=== PATIENT | female | born 1995 | race Caucasian/White ===

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

== ENCOUNTER 2018-03-08 09:01 | Emergency (ER) | payer SELFPAY ==
[~2018-03-08] VITALS: Ht 154.9 cm; Wt 97.5 kg
[~2018-03-08 09:01] MED LIST changes: +AMOX-355 PO; +CIPR-225 PO
--- OUTSIDE RECORDS SUMMARY | 2018-03-08 09:07 | XMS REPORT ---
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 87084463 ALLERGIES No Known Allergies ENCOUNTERS Encounter Location Date Diagnosis [address] [address] Oct, [address] [address] Jul, Missed menses N92.6 and BMI 40.0-44.9, adult Z68.41 [place] [address] [place] [id number] [place] [address]80- [address] Jul, Myalgia M79.1 ; Gastroenteritis K52.9 and BMI 40.0-44.9, adult Z68.41 [place] [address] [place] [id number] [place] [address] 77449- 7153 Jun, Missed period N92.6 ; Family history of leukemia Z80.6 and BMI 40.0-44.9, adult Z68.41 [place] [address] [address]- [address]267 Apr, Attention deficit hyperactivity disorder (ADHD), predominantly inattentive type F90.0 and Mood disorder F39 [place] [address] 38757- 0[address] Apr, 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 and Major depressive disorder, recurrent, moderate F33.1 [place] [address] [place] [id number] [place] [address] 27461- 5613 Dec, [place] [address] [address]- 2247 Dec, Other obesity due to excess calories E66.09 and PCOS ( polycystic ovarian syndrome) E28.2 [place] [address] 77[address]- 6622 17 Dec, 2016 Family history of diabetes mellitus Z83.3 ; Other obesity due to excess calories E66.09 ; Elevated blood pressure reading R03.0 ; Screening for diabetes mellitus Z13.1 ; Irregular menses N92.6 and PCOS ( polycystic ovarian syndrome) E28.2 [place] [address] [address]26- 4826 03 Aug, 2016 Pelvic pain R10.2 and Acute cystitis with hematuria N30.01 [place] [address] [place] [id number] [place] [address] 23537- 8547 10 Feb, 2016 Gastroenteritis K52.9 [facility] [address] [address] Jan, [facility] [place] [id number] [place] [address]64 -[address]406 Jan, Diarrhea, unspecified type R19.7 ; Gastroesophageal reflux disease with esophagitis K21.0 ; Major depressive disorder, recurrent, moderate F33.1 ; 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 and Absence of menstruation N91.2 [place] [address] [place] [id number] [place] [address] 85491- 0329 Dec, Major depressive disorder, recurrent, moderate F33.1 [place] [address] [place] [id number] [place] [address] 34321- 2042 Nov, Major depressive disorder, recurrent, moderate F33.1 and 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 [facility] [id number] [place] [address] 00689 -9110 Nov, Pharyngitis, unspecified etiology J02.9 and Tonsillitis J03.90 [facility] [address] [id number] [place] [address] 60341- 3677 Oct, Tendonitis M77.9 [facility] [id number] [place] [address] 49202- 7742 September, Rash R21 [facility] [id number] [place] [address] 41047- 3815 Mar, Cervical lymphadenopathy R59.0 [facility] [address] [address]15- 3205 Feb, Immunization due Z23 [facility] [address] [id number] [place] [address] 71714- 6625 Dec, Head lice 132.0 [facility] [address] [id number] [place] [address] 24214- 2463 Aug, [facility] [id number] [place] [address] 19052- 1491 Aug, [facility] [id number] [place] [address] 38686- 7187 Jul, [facility] [id number] [place] [address] 31557- 9313 Jul, [facility] [address] [id number] [place] [address] 04080- 4973 Jul, [facility] [address] [id number] [place] [address] 20389- 4009 Jul, [facility] [address] [place] [address] [id number] Jun, [facility] [id number] [place] [address] 41935- 0361 Jun, [facility] [address] [place] [address]- 6742 Jun, [facility] [address] [id number] [place] [address]- 4673 May, [facility] [place] [facility] [address] [id number] [place] [address]- 0884 May, [facility] [place] [facility] [address] [id number] [place] [address]- 6098 May, [facility] [place] [facility] [address] [id number] [place] [address]- 8037 May, [facility] [place] [facility] [address] [id number] [place] [address]- 7709 May, [facility] [place] [facility] [address] [id number] [place] [address]- 2066 May, [facility] [place] [facility] [address] [id number] [place] [address]- 9713 May, [facility] [place] [facility] [address] [id number] [place] [address]- 4581 May, [facility] [place] [facility] [address] [id number] [place] [address]- 9623 May, [facility] [place] [facility] [address] [id number] [place] [address]- 3260 May, [facility] [place] [facility] [address] [id number] [place] [address]- 3087 Apr, [facility] [place] [facility] [address] [id number] [place] [address]- 3407 Apr, [facility] [place] [facility] [address] [id number] [place] [address]- 5812 Mar, [facility] [place] [facility] [address] [id number] [place] [address]- 6775 Mar, [facility] [place] [facility] [address] [id number] [place] [address]- 8219 Mar, [facility] [place] [facility] [address] [id number] [place] [address]- 3258 Mar, [facility] [place] [facility] [address] [id number] [place] [address]- 1517 Feb, [facility] [place] [facility] [address] [id number] [place] [address]- 1318 Feb, [facility] [place] [facility] [address] [id number] [place] [address] Jan, [facility] [place] [facility] [address] [id number] [place] [address]- 3595 Jan, [facility] [place] [facility] [address] [id number] [place] [address]- 0750 Dec, [facility] [place] [facility] [address] [id number] [place] [address]- 9662 Dec, [facility] [place] [facility] [address] [id number] [place] [address]- 7739 Dec, [facility] [place] [facility] [address] [id number] [place] [address]- 9647 Dec, [facility] [place] [facility] [address] [id number] [place] [address]- 6938 Mar, [facility] [place] [facility] [address] [id number] [place] [address]- 6415 Mar, [facility] [place] [facility] [address] [id number] [place] [address]- 8597 Mar, [facility] [place] [facility] [address] [id number] [place] [address]- 5764 Mar, [facility] [place] [facility] [address] [id number] [place] [address]- 0988 Jan, [facility] [place] [facility] [address] [id number] [place] [address]- 1323 Jan, [facility] [place] [facility] [address] [id number], [place] [address]- 6927 Jan, [facility] [address] [id number] [place] [address]- 9974 Jan, [facility] [address] [id number], [place] [address]- 2996 Dec, [facility] [address] [facility] [id number] [place] [address]- 0966 Oct, [facility] [address] [id number], [place] [address]- 1564 September, [facility] [address] [id number] [place] [address]- 6272 Aug, [facility] [address] [id number] [place] [address]- 1580 Jul, [facility] [address] [place] [address]- 0431 Jun, [facility] [address] [id number] [place] [address]- 2854 Jun, [facility] [address] [place] [id number] [place] [address]- 2184 Jun, [facility] [address] [facility] [id number] [place] [address]- 7716 Jun, [facility] [address] [facility] [id number] [place] [address]- 2639 Jun, [facility] [place] [facility] [address] [id number], [place] [address]- 2541 May, [facility] [address] [facility] [id number], [place] [address]- 5236 Apr, [facility] [place] [facility] [address] [id number], [place] [address]- 6892 Apr, [facility] [address] [facility] [id number], [place] [address]- 4125 Apr, [facility] [place] [facility] [address] [id number] [place] [address]- 9882 Apr, [facility] [place] [facility] [address] [id number] [place] [address]- 0861 Feb, [facility] [place] [facility] [address] [id number] [place] [address]- 2376 Jan, [facility] [place] [facility] [address] [id number] [place] [address]- 2980 Dec, [facility] [place] [facility] [address] [id number] [place] [address]- 7731 Dec, [facility] [place] [facility] [address] [id number] [place] [address]- 8616 Dec, [facility] [place] [facility] [address] [id number] [place] [address]- 2640 Nov, [facility] [place] [facility] [address] [id number] [place] [address]- 0798 Nov, [facility] [place] [facility] [address] [id number] [place] [address]- 5732 Oct, [facility] [place] [facility] [address] [id number] [place] [address]- 6524 Aug, [facility] [place] [facility] [address] [id number] [place] [address]- 1099 Aug, [facility] [place] [facility] [address] [id number] [place] [address]- 9586 Jun, [facility] [place] [facility] [address] [id number] [place] [address]- 1014 May, [facility] [place] [facility] [address] [id number] [place] [address]- 7564 May, [facility] [place] [facility] [address] [id number] [place] [address]- 4902 Apr, [facility] [place] [facility] [address] [id number] [place] [address]- 7566 Apr, [facility] [address] [facility] [id number] [place] [address]- 9420 Jul, IMMUNIZATIONS No Known Immunizations SOCIAL HISTORY Never Assessed REASON FOR VISIT period concerns- lmp was 05/27, came in and has had a negative test, states she is on day 66 of cycle and has concerns about fertility-AHarrymanRAllie PLAN OF CARE Activity Details Follow Up 3 Months, prn Reason: control VITAL SIGNS Height 61 in 2017-07-31 Weight 213.5 lbs 2017-07-31 Temperature 100.2 degrees Fahrenheit 2017-07-31 Heart Rate 90 bpm 2017-07-31 Respiratory Rate 18 2017-07-31 BMI 40.34 kg/m2 2017-07-31 Blood pressure systolic 112 mmHg 2017-07-31 Blood pressure diastolic 68 mmHg 2017-07-31 MEDICATIONS Medication Instructions Dosage Frequency Start Date End Date Duration Status Ortho Tri-Cyclen (28) 0.18/0.215/0.25 MG-35 MCG Orally Once a day 1 tablet 24h Jul, 28 day(s) Active RESULTS Name Result Date Reference Range TEST, URINE (IN HOUSE) 2017-07-31 RESULTS negative Lot # [id number] Control + Exp date 11/2018 PROCEDURES No Known procedures INSTRUCTIONS MEDICATIONS ADMINISTERED No Known Medications MEDICAL (GENERAL) HISTORY Type Description Date Medical History depression Medical History ADHD Surgical History Umbilical hernia repair Surgical History Ear surgery Hospitalization History surgeries Hospitalization History childbirth
--- OUTSIDE RECORDS SUMMARY | 2018-03-08 09:07 | XMS REPORT ---
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 60103755 ALLERGIES No Information ENCOUNTERS Encounter Location Date Diagnosis [address] [address] Oct, [address] [address]- [address]676 Jul, Missed menses N92.6 and BMI 40.0-44.9, adult Z68.[address] [address]- 5068 Jul, Myalgia M79.1 ; Gastroenteritis K52.9 and BMI 40.0-44.9, adult Z68.[address] [address]65- 0073 Jun, Missed period N92.6 ; Family history of leukemia Z80.6 and BMI 40.0-44.9, adult Z68.[address] [address]- 6168 Apr, Attention deficit hyperactivity disorder (ADHD), predominantly inattentive type F90.0 and Mood disorder F39 [address] [address]- 2664 Apr, 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 and Major depressive disorder, recurrent, moderate F33.1 [place] [address] [place] [id number] [place] [address] 66891- 9053 Dec, [place] [address] [address]- 7775 Dec, Other obesity due to excess calories E66.09 and PCOS ( polycystic ovarian syndrome) E28.2 [place] [address] 18203- 9292 17 Dec, 2016 Family history of diabetes mellitus Z83.3 ; Other obesity due to excess calories E66.09 ; Elevated blood pressure reading R03.0 ; Screening for diabetes mellitus Z13.1 ; Irregular menses N92.6 and PCOS ( polycystic ovarian syndrome) E28.2 [place] [address] [address]- 1119 03 Aug, 2016 Pelvic pain R10.2 and Acute cystitis with hematuria N30.01 [place] [address] [place] [id number] [place] [address] 8[address]10- 3952 Feb, Gastroenteritis K52.9 [facility] [address] [address] Jan, [facility] [place] [id number] [place] [address] 16240 -7798 Jan, Diarrhea, unspecified type R19.7 ; Gastroesophageal reflux disease with esophagitis K21.0 ; Major depressive disorder, recurrent, moderate F33.1 ; 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 and Absence of menstruation N91.2 [place] [address] [place] [id number] [place] [address] 96931- 1805 Dec, Major depressive disorder, recurrent, moderate F33.1 [place] [address] [place] [id number] [place] [address] 05995- 7676 Nov, Major depressive disorder, recurrent, moderate F33.1 and 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 [facility] [address] [place] [address] 61647 -0041 Nov, Pharyngitis, unspecified etiology J02.9 and Tonsillitis J03.90 [facility] [address] [place] [id number] [place] [address] 40578- 2567 Oct, Tendonitis M77.9 [facility] [address] [place] [address] [id number] [place] [address] 49057- 5336 September, Rash R21 [facility] [address] [place] [id number] [place] [address] 05966- 7648 Mar, Cervical lymphadenopathy R59.0 [facility] [address] 72878- 2297 Feb, Immunization due Z23 [facility] [address] [place] [id number] [place] [address] 26910- 8399 Dec, Head lice 132.0 [facility] [address] [place] [address] [id number] [place] [address] 10893- 3441 Aug, [facility] [address] [id number] [place] [address] 89367- 2744 Aug, [facility] [address] [id number] [place] [address] 42538- 5252 Jul, [facility] [id number] [place] [address] 24413- 3427 Jul, [facility] [address] [place] [address] 27593- 6859 Jul, [facility] [id number] [place] [address] 65859- 9754 Jul, [facility] [address] [place] [address] [id number] Jun, [facility] [id number] [place] [address] 499807- 6316 Jun, [facility] [address] [place] [id number] [place] [address] [place] [address]- 8714 Jun, [facility] [address] [id number] [place] [address]- 9952 May, [facility] [place] [facility] [address] [id number] [place] [address]- 6158 May, [facility] [place] [facility] [address] [id number] [place] [address]- 7336 May, [facility] [place] [facility] [address] [id number] [place] [address]- 0735 May, [facility] [place] [facility] [address] [id number] [place] [address]- 6036 May, [facility] [place] [facility] [address] [id number] [place] [address]- 6105 May, [facility] [place] [facility] [address] [id number] [place] [address]- 3540 May, [facility] [place] [facility] [address] [id number] [place] [address]- 0481 May, [facility] [place] [facility] [address] [id number] [place] [address]- 2596 May, [facility] [place] [facility] [address] [id number] [place] [address]- 7245 May, [facility] [place] [facility] [address] [id number] [place] [address]- 1663 Apr, [facility] [place] [facility] [address] [id number] [place] [address]- 2601 Apr, [facility] [place] [facility] [address] [id number] [place] [address]- 2865 Mar, [facility] [place] [facility] [address] [id number] [place] [address]- 3430 Mar, [facility] [place] [facility] [address] [id number] [place] [address]- 6756 Mar, [facility] [place] [facility] [address] [id number] [place] [address]- 8058 Mar, [facility] [place] [facility] [address] [id number] [place] [address]- 1647 Feb, [facility] [place] [facility] [address] [id number] [place] [address]- 0724 Feb, [facility] [place] [facility] [address] [id number] [place] [address]- 5042 Jan, [facility] [place] [facility] [address] [id number] [place] [address]- 1117 Jan, [facility] [place] [facility] [address] [id number] [place] [address]- 1526 Dec, [facility] [place] [facility] [address] [id number] [place] [address]- 4993 Dec, [facility] [place] [facility] [address] [id number] [place] [address]- 8327 Dec, [facility] [place] [facility] [address] [id number] [place] [address]- 8007 Dec, [facility] [place] [facility] [address] [id number] [place] [address]- 5088 Mar, [facility] [place] [facility] [address] [id number] [place] [address]- 4618 Mar, [facility] [place] [facility] [address] [id number] [place] [address]- 1717 Mar, [facility] [place] [facility] [address] [id number] [place] [address]- 6254 Mar, [facility] [place] [facility] [address] [id number] [place] [address]- 2856 Jan, [facility] [place] [facility] [address] [id number] [place] [address]- 3164 Jan, [facility] [place] [facility] [address] [id number] [place] [address]- 3153 Jan, [facility] [address] [id number] [place] [address]- 7457 Jan, [facility] [address] [id number] [place] [address]- 3326 Dec, [facility] [address] [facility] [id number] [place] [address]- 5185 Oct, [facility] [place] [facility] [address] [id number] [place] [address]- 4253 September, [facility] [address] [id number] [place] [address]- 3964 Aug, [facility] [address] [id number] [place] [address]- 7239 Jul, [facility] [address] [id number] [place] [address]- 7906 Jun, [facility] [place] [facility] [address] [id number] [place] [address]- 1520 Jun, [facility] [address] [id number] [place] [address]- 4891 Jun, [facility] [address] [facility] [id number] [place] [address]- 2361 Jun, [facility] [address] [id number] [place] [address]- 6263 Jun, [facility] [place] [facility] [address] [id number] [place] [address] 2549 May, [facility] [place] [facility] [address] [id number] [place] [address]- 9256 Apr, [facility] [place] [facility] [address] [id number] [place] [address]- 4087 Apr, [facility] [place] [facility] [address] [facility] [id number] [place] [address] Apr, [facility] [place] [facility] [address] [id number] [place] [address] Apr, [facility] [place] [facility] [address] [id number] [place] [address] Feb, [facility] [place] [facility] [address] [id number] [place] [address] Jan, [facility] [place] [facility] [address] [id number] [place] [address] Dec, [facility] [place] [facility] [address] [id number] [place] [address] Dec, [facility] [place] [facility] [address] [id number] [place] [address] Dec, [facility] [place] [facility] [address] [id number] [place] [address] Nov, [facility] [place] [facility] [address] [id number] [place] [address] Nov, [facility] [place] [facility] [address] [id number] [place] [address] Oct, [facility] [place] [facility] [address] [id number] [place] [address] Aug, [facility] [place] [facility] [address] [id number] [place] [address] Aug, [facility] [place] [facility] [address] [id number] [place] [address] Jun, [facility] [place] [facility] [address] [id number] [place] [address] May, [facility] [place] [facility] [address] [id number] [place] [address] May, [facility] [place] [facility] [address] [id number] [place] [address] Apr, [facility] [place] [facility] [address] [id number] [place] [address] Apr, [facility] [address] [facility] [id number] [place] [address] Jul, IMMUNIZATIONS No Known Immunizations SOCIAL HISTORY Never Assessed REASON FOR VISIT dog bite PLAN OF CARE VITAL SIGNS MEDICATIONS Unknown Medications RESULTS No Results PROCEDURES No Known procedures INSTRUCTIONS MEDICATIONS ADMINISTERED No Known Medications MEDICAL (GENERAL) HISTORY Type Description Date Medical History depression Medical History ADHD Surgical History Umbilical hernia repair Surgical History Ear surgery Hospitalization History surgeries Hospitalization History childbirth
--- OUTSIDE RECORDS SUMMARY | 2018-03-08 09:07 | XMS REPORT ---
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 08949468 ALLERGIES No Known Allergies ENCOUNTERS Encounter Location Date Diagnosis [place] [address] [address] Oct, [place] [address] [address] Jul, Missed menses N92.6 and BMI 40.0-44.9, adult Z68.41 [place] [address] [address] [place] [id number] [place] [address]30- 3448 Jul, Myalgia M79.1 ; Gastroenteritis K52.9 and BMI 40.0-44.9, adult Z68.41 [place] [address] [address]- 28[address] Jun, Missed period N92.6 ; Family history of leukemia Z80.6 and BMI 40.0-44.9, adult Z68.41 [place] [address] 76[address]- 8407 Apr, Attention deficit hyperactivity disorder (ADHD), predominantly inattentive type F90.0 and Mood disorder F39 [place] [address] [address]31- 1711 Apr, 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 and Major depressive disorder, recurrent, moderate F33.1 [place] [address] [place] [id number] [place] [address] 95695- 2837 Dec, [place] [address] 01468- 4153 Dec, Other obesity due to excess calories E66.09 and PCOS ( polycystic ovarian syndrome) E28.2 [place] [address] 90478- 7937 17 Dec, 2016 Family history of diabetes mellitus Z83.3 ; Other obesity due to excess calories E66.09 ; Elevated blood pressure reading R03.0 ; Screening for diabetes mellitus Z13.1 ; Irregular menses N92.6 and PCOS ( polycystic ovarian syndrome) E28.2 [place] [address] 6[address]- 6688 03 Aug, 2016 Pelvic pain R10.2 and Acute cystitis with hematuria N30.01 [place] [address] 84023- 8831 Feb, Gastroenteritis K52.9 [facility] [place] [address] [place] [id number] [place] [address] 24117 -9269 Jan, [facility] [place] [address] [address] [place] [id number] [place] [address] 90227 -3575 Jan, Diarrhea, unspecified type R19.7 ; Gastroesophageal reflux disease with esophagitis K21.0 ; Major depressive disorder, recurrent, moderate F33.1 ; 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 and Absence of menstruation N91.2 [place] [address] 39636- 3635 Dec, Major depressive disorder, recurrent, moderate F33.1 [place] [address] [place] [id number] [place] [address] 44174- 8889 Nov, Major depressive disorder, recurrent, moderate F33.1 and 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 [facility] [id number] [place] [address] 87806 -1224 Nov, Pharyngitis, unspecified etiology J02.9 and Tonsillitis J03.90 [facility] [address] [place] [id number] [place] [address] 96193- 3318 Oct, Tendonitis M77.9 [facility] [address] 74646- 2747 September, Rash R21 [facility] [address] 21309- 5781 Mar, Cervical lymphadenopathy R59.0 [facility] [address] 88188- 7306 Feb, Immunization due Z23 [facility] [address] 26998- 4201 Dec, Head lice 132.0 [facility] [address] [place] [id number] [place] [address] 19528- 5537 Aug, [facility] [address] [place] [id number] [place] [address] 26040- 7062 Aug, [facility] [address] [place] [id number] [place] [address] 86631- 8164 Jul, [facility] [address] [place] [id number] [place] [address] 28986- 3878 Jul, [facility] [address] [place] [id number] [place] [address] 33042- 1028 Jul, [facility] [address] [place] [id number] [place] [address] 37304- 4377 Jul, [facility] [id number] [place] [address] [id number] Jun, [facility] [address] [place] [id number] [place] [address] 07394- 1137 Jun, [facility] [address] [id number] [place] [address]- 2546 Jun, [facility] [place] [facility] [address] [id number] [place] [address]- 9329 May, [facility] [place] [facility] [address] [id number] [place] [address]- 2006 May, [facility] [place] [facility] [address] [id number] [place] [address]- 2226 May, [facility] [place] [facility] [address] [id number] [place] [address]- 3390 May, [facility] [place] [facility] [address] [id number] [place] [address]- 0630 May, [facility] [place] [facility] [address] [id number] [place] [address]- 7600 May, [facility] [place] [facility] [address] [id number] [place] [address]- 8190 May, [facility] [place] [facility] [address] [id number] [place] [address]- 1048 May, [facility] [place] [facility] [address] [id number] [place] [address]- 8913 May, [facility] [place] [facility] [address] [id number] [place] [address]- 2437 May, [facility] [place] [facility] [address] [id number] [place] [address]- 4486 Apr, [facility] [place] [facility] [address] [id number] [place] [address]- 2786 Apr, [facility] [place] [facility] [address] [id number] [place] [address]- 0796 Mar, [facility] [place] [facility] [address] [id number] [place] [address]- 1916 Mar, [facility] [place] [facility] [address] [id number] [place] [address]- 4103 Mar, [facility] [place] [facility] [address] [id number] [place] [address]87 Mar, [facility] [place] [facility] [address] [id number] [place] [address]- 8805 Feb, [facility] [place] [facility] [address] [id number] [place] [address]- 4591 Feb, [facility] [place] [facility] [address] [id number] [place] [address]- 7035 Jan, [facility] [place] [facility] [address] [id number] [place] [address]- 9808 Jan, [facility] [place] [facility] [address] [id number] [place] [address]- 1219 Dec, [facility] [place] [facility] [address] [id number] [place] [address]- 5097 Dec, [facility] [place] [facility] [address] [id number] [place] [address]- 1332 Dec, [facility] [place] [facility] [address] [id number] [place] [address]- 6836 Dec, [facility] [place] [facility] [address] [id number] [place] [address]- 7321 Mar, [facility] [place] [facility] [address] [id number] [address]- 8143 Mar, [facility] [place] [facility] [address] [id number], [place] [address]- 5964 Mar, [facility] [place] [facility] [address] [id number] [place] [address]- 9509 Mar, [facility] [place] [facility] [address] [id number], [place] [address]- 2542 Jan, [facility] [place] [facility] [address] [id number] [place] [address]- 5065 Jan, [facility] [place] [facility] [address] [id number] [place] [address]- 3783 Jan, [facility] [address] [id number] [place] [address]- 1677 Jan, [facility] [address] [id number] [place] [address] 2546 Dec, [facility] [address] [id number] [place] [address]- 3128 Oct, [facility] [address] [id number] [place] [address] 2546 September, [facility] [address] [id number] [place] [address]- 8585 Aug, [facility] [address] [id number] [place] [address]- 2546 Jul, [facility] [address] [address] 1987 Jun, [facility] [address] [id number] [place] [address]- 5905 Jun, [facility] [address] [place] [address]- 7447 Jun, [facility] [address] [facility] [id number] [place] [address]- 7357 Jun, [facility] [address] [facility] [id number] [place] [address]- 2547 Jun, [facility] [address] [id number], [place] [address]- 2540 May, [facility] [place] [facility] [address] [id number] [place] [address]- 2546 Apr, [facility] [place] [facility] [address] [id number] [place] [address]- 2546 Apr, [facility] [address] [facility] [id number] [place] [address]- 2546 Apr, [facility] [place] [facility] [address] [id number] [place] [address]- 0539 Apr, [facility] [place] [facility] [address] [id number] [place] [address]- 3946 Feb, [facility] [place] [facility] [address] [id number] [place] [address]- 2926 Jan, [facility] [place] [facility] [address] [id number] [place] [address]- 0296 Dec, [facility] [place] [facility] [address] [id number] [place] [address]- 7424 Dec, [facility] [place] [facility] [address] [id number] [place] [address]- 0726 Dec, [facility] [place] [facility] [address] [id number] [place] [address]- 8325 Nov, [facility] [place] [facility] [address] [id number] [place] [address]- 0402 Nov, [facility] [place] [facility] [address] [id number] [place] [address]- 1280 Oct, [facility] [place] [facility] [address] [id number] [place] [address]- 3596 Aug, [facility] [place] [facility] [address] [id number] [place] [address]- 9956 Aug, [facility] [place] [facility] [address] [id number] [place] [address]- 9096 Jun, [facility] [place] [facility] [address] [id number] [place] [address]- 4616 May, [facility] [place] [facility] [address] [id number] [place] [address]- 0916 May, [facility] [place] [facility] [address] [id number] [place] [address]- 8106 Apr, [facility] [place] [facility] [address] [facility] [id number] [place] [address]- 8445 Apr, [facility] [address] [facility] [id number] [place] [address]- 5900 Jul, IMMUNIZATIONS Vaccine Route Administration Date Status TORADOL (IM) 60 MG/2ML (UP TO 15 MG) IM Intramuscular July 29, 2017 Administered SOCIAL HISTORY Never Assessed REASON FOR VISIT Vomiting, diahrria, body aches -[place] [facility] [employer]U[facility] PLAN OF CARE Activity Details Follow Up prn Reason: VITAL SIGNS Height 61 in 2017-07-29 Weight 214.7 lbs 2017-07-29 Temperature 98.4 degrees Fahrenheit 2017-07-29 Heart Rate 88 bpm 2017-07-29 Respiratory Rate 18 2017-07-29 BMI 40.56 kg/m2 2017-07-29 Blood pressure systolic 122 mmHg 2017-07-29 Blood pressure diastolic 70 mmHg 2017-07-29 MEDICATIONS Unknown Medications RESULTS No Results PROCEDURES Procedure Date Ordered Result Body Site TORADOL (IM) 60 MG/2ML (UP TO 15 MG) July 29, 2017 THER/PROPH/DIAG INJ, SC/IM July 29, 2017 INSTRUCTIONS MEDICATIONS ADMINISTERED No Known Medications MEDICAL (GENERAL) HISTORY Type Description Date Medical History depression Medical History ADHD Surgical History Umbilical hernia repair Surgical History Ear surgery Hospitalization History surgeries Hospitalization History childbirth
--- OUTSIDE RECORDS SUMMARY | 2018-03-08 09:08 | XMS REPORT ---
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 85939431 ALLERGIES No Known Allergies ENCOUNTERS Encounter Location Date Diagnosis [address] [address]47 Oct, [address] [address]- [address]131 Jul, Missed menses N92.6 and BMI 40.0-44.9, adult Z68.[address] [address]- 9892 Jul, Myalgia M79.1 ; Gastroenteritis K52.9 and BMI 40.0-44.9, adult Z68.[address] [address]- 2864 27 Jun, 2017 Missed period N92.6 ; Family history of leukemia Z80.6 and BMI 40.0-44.9, adult Z68.[address] [address]- 2903 Apr, Attention deficit hyperactivity disorder (ADHD), predominantly inattentive type F90.0 and Mood disorder F39 [address] [address]- 0690 Apr, 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 and Major depressive disorder, recurrent, moderate F33.1 [place] [address] [place] [id number] [place] [address] 40185- 9826 Dec, [place] [address] [place] [id number] [place] [address] 29894- 0308 Dec, Other obesity due to excess calories E66.09 and PCOS ( polycystic ovarian syndrome) E28.2 [place] [address] [address]- 6588 17 Dec, 2016 Family history of diabetes mellitus Z83.3 ; Other obesity due to excess calories E66.09 ; Elevated blood pressure reading R03.0 ; Screening for diabetes mellitus Z13.1 ; Irregular menses N92.6 and PCOS ( polycystic ovarian syndrome) E28.2 [place] [address] [address]- 6139 03 Aug, 2016 Pelvic pain R10.2 and Acute cystitis with hematuria N30.01 [place] [address] [place] [id number] [place] [address] 40786- 9759 Feb, Gastroenteritis K52.9 [facility] [address] [address] Jan, [facility] [place] [id number] [place] [address] 55021 -5243 Jan, Diarrhea, unspecified type R19.7 ; Gastroesophageal reflux disease with esophagitis K21.0 ; Major depressive disorder, recurrent, moderate F33.1 ; 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 and Absence of menstruation N91.2 [place] [address] [place] [id number] [place] [address] 66927- 2794 Dec, Major depressive disorder, recurrent, moderate F33.1 [place] [address] [place] [id number] [place] [address] 65449- 9814 Nov, Major depressive disorder, recurrent, moderate F33.1 and 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 [facility] [place] [id number] [place] [address] 34517 -0522 Nov, Pharyngitis, unspecified etiology J02.9 and Tonsillitis J03.90 [facility] [address] [place] [id number] [place] [address] 61700- 6951 Oct, Tendonitis M77.9 [facility] [address] [place] [id number] [place] [address] 21313- 5148 September, Rash R21 [facility] [address] [place] [id number] [place] [address] 57915- 1831 Mar, Cervical lymphadenopathy R59.0 [facility] [address] 03404- 6067 Feb, Immunization due Z23 [facility] [address] [place] [id number] [place] [address] 60930- 8855 Dec, Head lice 132.0 [facility] [address] [place] [id number] [place] [address] 45010- 9294 Aug, [facility] [address] [place] [id number] [place] [address] 22568- 5513 Aug, [facility] [address] [place] [id number] [place] [address] 81004- 5046 Jul, [facility] [address] [place] [address] 80728- 3438 Jul, [facility] [address] [place] [address] 89246- 2729 Jul, [facility] [address] [place] [address] 92211- 4629 Jul, [facility] [address] [place] [address] [id number] Jun, [facility] [address] [place] [address] 918844- 1339 Jun, [facility] [address] [place] [id number] [place] [address], [place] [address]- 6078 Jun, [facility] [place] [facility] [address] [id number] [place] [address]- 8502 May, [facility] [place] [facility] [address] [id number] [place] [address]- 0742 May, [facility] [place] [facility] [address] [id number] [place] [address]- 6559 May, [facility] [place] [facility] [address] [id number] [place] [address]- 0309 May, [facility] [place] [facility] [address] [id number] [place] [address]- 1165 May, [facility] [place] [facility] [address] [id number] [place] [address]- 2057 May, [facility] [place] [facility] [address] [id number] [place] [address]- 4873 May, [facility] [place] [facility] [address] [id number] [place] [address]- 1547 May, [facility] [place] [facility] [address] [id number] [place] [address]- 5749 May, [facility] [place] [facility] [address] [id number] [place] [address]- 7023 May, [facility] [place] [facility] [address] [id number] [place] [address]- 3605 Apr, [facility] [place] [facility] [address] [id number] [place] [address]- 5923 Apr, [facility] [place] [facility] [address] [id number] [place] [address]- 3636 Mar, [facility] [place] [facility] [address] [id number] [place] [address]- 5682 Mar, [facility] [place] [facility] [address] [id number] [place] [address]- 5346 Mar, [facility] [place] [facility] [address] [id number] [place] [address]- 8224 Mar, [facility] [place] [facility] [address] [id number] [place] [address]- 4963 Feb, [facility] [place] [facility] [address] [id number] [place] [address]- 0052 Feb, [facility] [place] [facility] [address] [id number] [place] [address]- 5749 Jan, [facility] [place] [facility] [address] [id number] [place] [address]- 0276 Jan, [facility] [place] [facility] [address] [id number] [place] [address]- 2400 Dec, [facility] [place] [facility] [address] [id number] [place] [address]- 0716 Dec, [facility] [place] [facility] [address] [id number] [place] [address]- 0301 Dec, [facility] [place] [facility] [address] [id number] [place] [address]- 2967 Dec, [facility] [place] [facility] [address] [id number] [place] [address]- 7572 Mar, [facility] [place] [facility] [address] [id number] [place] [address]- 4915 Mar, [facility] [place] [facility] [address] [id number] [place] [address]- 5120 Mar, [facility] [place] [facility] [address] [id number] [place] [address]- 4357 Mar, [facility] [place] [facility] [address] [id number] [place] [address]- 6844 Jan, [facility] [place] [facility] [address] [id number] [place] [address]- 9636 Jan, [facility] [place] [facility] [address] [id number], [place] [address]- 3646 Jan, [facility] [address] [id number] [place] [address]- 0697 Jan, [facility] [address] [id number] [place] [address]- 8896 Dec, [facility] [address] [facility] [id number] [place] [address]- 2629 Oct, [facility] [address] [id number], [place] [address]- 5954 September, [facility] [address] [id number] [place] [address]- 0351 Aug, [facility] [address] [facility] [id number] [place] [address]- 4047 Jul, [facility] [address] [facility] [id number] [place] [address]- 4628 Jun, [facility] [address] [id number], [place] [address]- 6421 Jun, [facility] [address] [id number], [place] [address]- 1141 Jun, [facility] [address] [facility] [id number] [place] [address]- 8419 Jun, [facility] [address] [facility] [id number], [place] [address] Jun, [facility] [place] [facility] [address] [id number], [place] [address] May, [facility] [address] [id number], [place] [address] Apr, [facility] [place] [facility] [address] [id number], [place] [address] Apr, [facility] [address] [facility] [id number], [place] [address] Apr, [facility] [place] [facility] [address] [id number] [place] [address] Apr, [facility] [place] [facility] [address] [id number] [place] [address] Feb, [facility] [place] [facility] [address] [id number] [place] [address] Jan, [facility] [place] [facility] [address] [id number] [place] [address] Dec, [facility] [place] [facility] [address] [id number] [place] [address] Dec, [facility] [place] [facility] [address] [id number] [place] [address] Dec, [facility] [place] [facility] [address] [id number] [place] [address] Nov, [facility] [place] [facility] [address] [id number] [place] [address] Nov, [facility] [place] [facility] [address] [id number] [place] [address] Oct, [facility] [place] [facility] [address] [id number] [place] [address] Aug, [facility] [place] [facility] [address] [id number] [place] [address] Aug, [facility] [place] [facility] [address] [id number] [place] [address] Jun, [facility] [place] [facility] [address] [id number] [place] [address] May, [facility] [place] [facility] [address] [id number] [place] [address] May, [facility] [place] [facility] [address] [id number] [place] [address] Apr, [facility] [place] [facility] [address] [id number] [place] [address] Apr, [facility] [address] [facility] [id number] [place] [address] Jul, IMMUNIZATIONS No Known Immunizations SOCIAL HISTORY Never Assessed REASON FOR VISIT Establish Care/ pt requesting labs- Torrie Alvarez RN, PHQ2, AUDIT C PLAN OF CARE Activity Details Follow Up prn Reason: VITAL SIGNS Height 61 in 2017-07-09 Weight 213 lbs 2017-07-09 Temperature 98.0 degrees Fahrenheit 2017-07-09 Heart Rate 80 bpm 2017-07-09 Respiratory Rate 18 2017-07-09 BMI 40.24 kg/m2 2017-07-09 Blood pressure systolic 112 mmHg 2017-07-09 Blood pressure diastolic 74 mmHg 2017-07-09 MEDICATIONS Unknown Medications RESULTS No Results PROCEDURES Procedure Date Ordered Result Body Site URINE TEST Jul 09, 2017 COMPLETE CBC W/AUTO DIFF WBC Jul 09, 2017 INSTRUCTIONS MEDICATIONS ADMINISTERED No Known Medications MEDICAL (GENERAL) HISTORY Type Description Date Medical History depression Medical History ADHD Surgical History Umbilical hernia repair Surgical History Ear surgery Hospitalization History surgeries Hospitalization History childbirth
--- OUTSIDE RECORDS SUMMARY | 2018-03-08 09:12 | XMS REPORT | Continuity of Care Document ---
Author Author Count Includes [facility] Address Unknown Phone Unavailable Allergies Active Description Code Type Severity Reaction Onset Reported/Identified Relationship to Patient Clinical Status Yes No Known Drug Allergies [id number] Drug Allergy Unknown N/A 11/29/2011 Medications There is no data. Problems Date Dx Coded Attending Type Code Diagnosis Diagnosed By 08/02/2009 CHIQUITA BILL APRN 034.0 PHARYNGITIS STREPTOCOCCUS, GROUP A: BETA HEMOLYTIC 08/02/2009 CHIQUITA BILL APRN 034.0 PHARYNGITIS STREPTOCOCCUS, GROUP A: BETA HEMOLYTIC 08/02/2009 INDIA SHAY DO K 034.0 PHARYNGITIS STREPTOCOCCUS, GROUP A: BETA HEMOLYTIC 08/02/2009 INDIA SHAY DO K 034.0 PHARYNGITIS STREPTOCOCCUS, GROUP A: BETA HEMOLYTIC 08/02/2009 034.0 PHARYNGITIS STREPTOCOCCUS, GROUP A: BETA HEMOLYTIC 08/02/2009 PATRICE DIAS MD 034.0 PHARYNGITIS STREPTOCOCCUS, GROUP A: BETA HEMOLYTIC 08/02/2009 MOLLY SHAY DOA K 034.0 PHARYNGITIS STREPTOCOCCUS, GROUP A: BETA HEMOLYTIC 08/02/2009 TYREEE APRON CLEANER, UTE A 034.0 PHARYNGITIS STREPTOCOCCUS, GROUP A: BETA HEMOLYTIC 08/02/2009 KENOTTE APRON CLEANER, UTE A 034.0 PHARYNGITIS STREPTOCOCCUS, GROUP A: BETA HEMOLYTIC 08/02/2009 RAJOTTE APRON CLEANER, UTE A 034.0 PHARYNGITIS STREPTOCOCCUS, GROUP A: BETA HEMOLYTIC 08/02/2009 MARISEL MARTINES APRNIA R 034.0 PHARYNGITIS STREPTOCOCCUS, GROUP A: BETA HEMOLYTIC 08/02/2009 RAJOTTE APRON CLEANER, UTE A 034.0 PHARYNGITIS STREPTOCOCCUS, GROUP A: BETA HEMOLYTIC 08/02/2009 RAJOTTE APRON CLEANER, UTE A 034.0 PHARYNGITIS STREPTOCOCCUS, GROUP A: BETA HEMOLYTIC 08/02/2009 CONRAD RODRIGUEZ FREYA R 034.0 PHARYNGITIS STREPTOCOCCUS, GROUP A: BETA HEMOLYTIC 08/02/2009 JASPAL DO, INDIA K 034.0 PHARYNGITIS STREPTOCOCCUS, GROUP A: BETA HEMOLYTIC 08/02/2009 DIANA UPN, UTE A 034.0 PHARYNGITIS STREPTOCOCCUS, GROUP A: BETA HEMOLYTIC 07/20/2010 LANDY RODRIGUEZ, CHIQUITA SARAH V06.5 DT, TETANUS-DIPHTHERIA [Td] ,TDAP 07/20/2010 BILL JENNIFER, CHIQUITA SARAH V06.5 DT, TETANUS-DIPHTHERIA [Td] ,TDAP 07/20/2010 SHAY DOINDIA V06.5 DT, TETANUS-DIPHTHERIA [Td] ,TDAP 07/20/2010 SHAY DO, IND[place] K V06.5 DT, TETANUS-DIPHTHERIA [Td] ,TDAP 07/20/2010 V06.5 DT, TETANUS- DIPHTHERIA [Td] ,TDAP 07/20/2010 PATRICE DIAS MD V06.5 DT, TETANUS-DIPHTHERIA [Td] ,TDAP 07/20/2010 MOLLY SHAY DOA K V06.5 DT, TETANUS-DIPHTHERIA [Td] ,TDAP 07/20/2010 DIANA RODRIGUEZ, UTE A V06.5 DT, TETANUS-DIPHTHERIA [Td] ,TDAP 07/20/2010 KENOTTE APRON CLEANER, UTE A V06.5 DT, TETANUS-DIPHTHERIA [Td] ,TDAP 07/20/2010 RAJOTTE APRON CLEANER, UTE A V06.5 DT, TETANUS-DIPHTHERIA [Td] ,TDAP 07/20/2010 CONRAD RODRIGUEZ, FREYA R V06.5 DT, TETANUS-DIPHTHERIA [Td] ,TDAP 07/20/2010 RAJOTTE APRON CLEANER, UTE A V06.5 DT, TETANUS-DIPHTHERIA [Td] ,TDAP 07/20/2010 RAJOTTE APRON CLEANER, UTE A V06.5 DT, TETANUS-DIPHTHERIA [Td] ,TDAP 07/20/2010 CONRAD RODRIGUEZ, FREAY R V06.5 DT, TETANUS-DIPHTHERIA [Td] ,TDAP 07/20/2010 MOLLY SHAY DOA K V06.5 DT, TETANUS-DIPHTHERIA [TD] ,TDAP 07/20/2010 DIANA RODRIGUEZ, UTE A V06.5 DT, TETANUS-DIPHTHERIA [TD] ,TDAP 07/28/2010 CHIQUITA BILL APRN 719.08 EFFUSION OF JOINT OF OTHER SPECIFIED SITES 07/28/2010 CHIQUITA BILL APRN 813.80 CLOSED FRACTURE OF UNSPECIFIED PART OF FOREARM 07/28/2010 CHIQUITA BILL APRN 959.3 OTHER AND UNSPECIFIED INJURY TO ELBOW FOREARM AND WRIST 07/28/2010 CHIQUITA BILL APRN E849.0 HOME ACCIDENTS 07/28/2010 CHIQUITA BILL APRN E884.2 ACCIDENTAL FALL FROM CHAIR 07/28/2010 CHIQUITA BILL APRN 719.08 EFFUSION OF JOINT OF OTHER SPECIFIED SITES 07/28/2010 LANDY RODRIGUEZ CHIQUITA SARAH 813.80 CLOSED FRACTURE OF UNSPECIFIED PART OF FOREARM 07/28/2010 CHIQUITA BILL APRN 959.3 OTHER AND UNSPECIFIED INJURY TO ELBOW FOREARM AND WRIST 07/28/2010 CHIQUITA BILL APRN E849.0 HOME ACCIDENTS 07/28/2010 CHIQUITA BILL APRN E884.2 ACCIDENTAL FALL FROM CHAIR 07/28/2010 SHAY DO, INDIA K 719.08 EFFUSION OF JOINT OF OTHER SPECIFIED SITES 07/28/2010 SHAY DO, INDIA K 813.80 CLOSED FRACTURE OF UNSPECIFIED PART OF FOREARM 07/28/2010 SHAY DO, INDIA K 959.3 OTHER AND UNSPECIFIED INJURY TO ELBOW FOREARM AND WRIST 07/28/2010 SHAY DO, INDIA K E849.0 HOME ACCIDENTS 07/28/2010 SHAY DO, INDIA K E884.2 ACCIDENTAL FALL FROM CHAIR 07/28/2010 SHAY DO, INDIA K 719.08 EFFUSION OF JOINT OF OTHER SPECIFIED SITES 07/28/2010 SHAY DO, INDIA K 813.80 CLOSED FRACTURE OF UNSPECIFIED PART OF FOREARM 07/28/2010 SHAY DO, INDIA K 959.3 OTHER AND UNSPECIFIED INJURY TO ELBOW FOREARM AND WRIST 07/28/2010 SHAY DO, INDIA K E849.0 HOME ACCIDENTS 07/28/2010 SHAY DO, INDIA K E884.2 ACCIDENTAL FALL FROM CHAIR 07/28/2010 719.08 EFFUSION OF JOINT OF OTHER SPECIFIED SITES 07/28/2010 813.80 CLOSED FRACTURE OF UNSPECIFIED PART OF FOREARM 07/28/2010 959.3 OTHER AND UNSPECIFIED INJURY TO ELBOW FOREARM AND WRIST 07/28/2010 E849.0 HOME ACCIDENTS 07/28/2010 E884.2 ACCIDENTAL FALL FROM CHAIR 07/28/2010 PATRICE DIAS MD 719.08 EFFUSION OF JOINT OF OTHER SPECIFIED SITES 07/28/2010 PATRICE DIAS MD 813.80 CLOSED FRACTURE OF UNSPECIFIED PART OF FOREARM 07/28/2010 PATRICE DIAS MD 959.3 OTHER AND UNSPECIFIED INJURY TO ELBOW FOREARM AND WRIST 07/28/2010 PATRICE DIAS MD E849.0 HOME ACCIDENTS 07/28/2010 PATRICE DIAS MD E884.2 ACCIDENTAL FALL FROM CHAIR 07/28/2010 SHAY DO, INIDA K 719.08 EFFUSION OF JOINT OF OTHER SPECIFIED SITES 07/28/2010 SHAY DO, INDIA K 813.80 CLOSED FRACTURE OF UNSPECIFIED PART OF FOREARM 07/28/2010 SHAY DO, INDIA K 959.3 OTHER AND UNSPECIFIED INJURY TO ELBOW FOREARM AND WRIST 07/28/2010 SHAY DO, INDIA K E849.0 HOME ACCIDENTS 07/28/2010 SHAY DO, INDIA K E884.2 ACCIDENTAL FALL FROM CHAIR 07/28/2010 RAJOTTE APRON CLEANER, UTE A 719.08 EFFUSION OF JOINT OF OTHER SPECIFIED SITES 07/28/2010 TYREEE APRON CLEANER, UTE A 813.80 CLOSED FRACTURE OF UNSPECIFIED PART OF FOREARM 07/28/2010 RAJCRISTOPHERE APRON CLEANER, UTE A 959.3 OTHER AND UNSPECIFIED INJURY TO ELBOW FOREARM AND WRIST 07/28/2010 TYREEE APRON CLEANER, UTE A E849.0 HOME ACCIDENTS 07/28/2010 RAJOTTE APRON CLEANER, UTE A E884.2 ACCIDENTAL FALL FROM CHAIR 07/28/2010 RAJCRISTOPHERE APRON CLEANER, UTE A 719.08 EFFUSION OF JOINT OF OTHER SPECIFIED SITES 07/28/2010 RAJCRISTOPHERE APRON CLEANER, UTE A 813.80 CLOSED FRACTURE OF UNSPECIFIED PART OF FOREARM 07/28/2010 RAJCRISTOPHERE APRON CLEANER, UTE A 959.3 OTHER AND UNSPECIFIED INJURY TO ELBOW FOREARM AND WRIST 07/28/2010 RAJCRISTOPHERE APRON CLEANER, UTE A E849.0 HOME ACCIDENTS 07/28/2010 TYREEE APRON CLEANER, UTE A E884.2 ACCIDENTAL FALL FROM CHAIR 07/28/2010 RAJOTTE APRON CLEANER, UTE A 719.08 EFFUSION OF JOINT OF OTHER SPECIFIED SITES 07/28/2010 RAJOTTE APRON CLEANER, UTE A 813.80 CLOSED FRACTURE OF UNSPECIFIED PART OF FOREARM 07/28/2010 RAJOTTE APRON CLEANER, UTE A 959.3 OTHER AND UNSPECIFIED INJURY TO ELBOW FOREARM AND WRIST 07/28/2010 RAJOTTE APRON CLEANER, UTE A E849.0 HOME ACCIDENTS 07/28/2010 RAJOTTE APRON CLEANER, UTE A E884.2 ACCIDENTAL FALL FROM CHAIR 07/28/2010 CONRAD UPN FREYA R 719.08 EFFUSION OF JOINT OF OTHER SPECIFIED SITES 07/28/2010 CONRAD RODRIGUEZ FREYA R 813.80 CLOSED FRACTURE OF UNSPECIFIED PART OF FOREARM 07/28/2010 CONRAD UPN FREYA R 959.3 OTHER AND UNSPECIFIED INJURY TO ELBOW FOREARM AND WRIST 07/28/2010 CONRAD UPN FREYA R E849.0 HOME ACCIDENTS 07/28/2010 MARY MARTINES APRNRICIA R E884.2 ACCIDENTAL FALL FROM CHAIR 07/28/2010 TYREEE APRON CLEANER, UTE A 719.08 EFFUSION OF JOINT OF OTHER SPECIFIED SITES 07/28/2010 RAJCRISTOPHERE APRON CLEANER, UTE A 813.80 CLOSED FRACTURE OF UNSPECIFIED PART OF FOREARM 07/28/2010 TYREEE APRON CLEANER, UTE A 959.3 OTHER AND UNSPECIFIED INJURY TO ELBOW FOREARM AND WRIST 07/28/2010 TYREEE APRON CLEANER, UTE A E849.0 HOME ACCIDENTS 07/28/2010 TYREEE APRON CLEANER, UTE A E884.2 ACCIDENTAL FALL FROM CHAIR 07/28/2010 KENOTTE APRON CLEANER, UTE A 719.08 EFFUSION OF JOINT OF OTHER SPECIFIED SITES 07/28/2010 RAJOTTE APRON CLEANER, UTE A 813.80 CLOSED FRACTURE OF UNSPECIFIED PART OF FOREARM 07/28/2010 KENOTTE APRON CLEANER, UTE A 959.3 OTHER AND UNSPECIFIED INJURY TO ELBOW FOREARM AND WRIST 07/28/2010 RAJOTTE APRON CLEANER, UTE A E849.0 HOME ACCIDENTS 07/28/2010 KENOTTE APRON CLEANER, UTE A E884.2 ACCIDENTAL FALL FROM CHAIR 07/28/2010 CONRAD RODRIGUEZ FREYA R 719.08 EFFUSION OF JOINT OF OTHER SPECIFIED SITES 07/28/2010 MARTINES APRON CLEANER, FREYA R 813.80 CLOSED FRACTURE OF UNSPECIFIED PART OF FOREARM 07/28/2010 MARTINES APRON CLEANER, FREYA R 959.3 OTHER AND UNSPECIFIED INJURY TO ELBOW FOREARM AND WRIST 07/28/2010 MARTINES APRON CLEANER, FREYA R E849.0 HOME ACCIDENTS 07/28/2010 MARTINES APRON CLEANER, FREYA R E884.2 ACCIDENTAL FALL FROM CHAIR 07/28/2010 SHAY DO, INDIA K 719.08 EFFUSION OF JOINT OF OTHER SPECIFIED SITES 07/28/2010 SHAY DO, INDIA K 813.80 CLOSED FRACTURE OF UNSPECIFIED PART OF FOREARM 07/28/2010 SHAY DO, INDIA K 959.3 OTHER AND UNSPECIFIED INJURY TO ELBOW FOREARM AND WRIST 07/28/2010 SHAY DO, INDIA K E849.0 HOME ACCIDENTS 07/28/2010 SHAY DO, INDIA K E884.2 ACCIDENTAL FALL FROM CHAIR 07/28/2010 TYREEE APRON CLEANER, UTE A 719.08 EFFUSION OF JOINT OF OTHER SPECIFIED SITES 07/28/2010 RAJOTTE APRON CLEANER UTE A 813.80 CLOSED FRACTURE OF UNSPECIFIED PART OF FOREARM 07/28/2010 RAJOTTE APRON CLEANER, UTE A 959.3 OTHER AND UNSPECIFIED INJURY TO ELBOW FOREARM AND WRIST 07/28/2010 RAJOTTE APRON CLEANER UTE A E849.0 HOME ACCIDENTS 07/28/2010 RAJOTTE APRON CLEANER, UTE A E884.2 ACCIDENTAL FALL FROM CHAIR 09/15/2010 LANDY RODRIGUEZ CHIQUITA KEARA 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 09/15/2010 LANDY RODRIGUEZ CHIQUITA KEARA 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 09/15/2010 SHAY DO, INDIA K 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 09/15/2010 SHAY DO, INDIA K 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 09/15/2010 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 09/15/2010 PATRICE DIAS MD 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 09/15/2010 SHAY DO, INDIA K 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 09/15/2010 RAJCRISTOPHERE APRON CLEANER, UET A 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 09/15/2010 RAJOTTE APRON CLEANER, UTE A 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 09/15/2010 RAJOTTE APRON CLEANER, UTE A 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 09/15/2010 CONRAD APRON CLEANER, FREYA R 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 09/15/2010 RAJOTTE APRON CLEANER, UTE A 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 09/15/2010 RAJOTTE APRON CLEANER, UTE A 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 09/15/2010 MARTINES APRON CLEANER, FREYA R 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 09/15/2010 SHAY DO, INDIA K 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 09/15/2010 RAJOTTE APRON CLEANER, UTE A 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 02/15/2011 BILL APRON CLEANER, CHIQUITA SARAH 314.00 ADHD INATTENTIVE 02/15/2011 BILL APRON CLEANER, CHIQUITA SARAH 314.00 ADHD INATTENTIVE 02/15/2011 SHAY DO, INDIA K 314.00 ADHD INATTENTIVE 02/15/2011 SHAY DO, INDIA K 314.00 ADHD INATTENTIVE 02/15/2011 314.00 ADHD INATTENTIVE 02/15/2011 PATRICE DIAS MD 314.00 ADHD INATTENTIVE 02/15/2011 SHAY DO, INDIA K 314.00 ADHD INATTENTIVE 02/15/2011 RAJOTTE APRON CLEANER, UTE A 314.00 ADHD INATTENTIVE 02/15/2011 RAJOTTE APRON CLEANER, UTE A 314.00 ADHD INATTENTIVE 02/15/2011 RAJOTTE APRON CLEANER, UTE A 314.00 ADHD INATTENTIVE 02/15/2011 MARTINES APRON CLEANER, FREYA R 314.00 ADHD INATTENTIVE 02/15/2011 RAJOTTE APRON CLEANER, UTE A 314.00 ADHD INATTENTIVE 02/15/2011 RAJOTTE APRON CLEANER, UTE A 314.00 ADHD INATTENTIVE 02/15/2011 CONRAD APRON CLEANER, FREYA R 314.00 ADHD INATTENTIVE 02/15/2011 SHAY DO, INDIA K 314.00 ADHD INATTENTIVE 02/15/2011 RAJOTTE APRON CLEANER, UTE A 314.00 ADHD INATTENTIVE 04/17/2011 BILL APRON CLEANER, CHIQUITA SARAH 462 ACUTE PHARYNGITIS 04/17/2011 BILL APRON CLEANER, CHIQUITA KEARA 462 ACUTE PHARYNGITIS 04/17/2011 SHAY DO, INDIA K 462 ACUTE PHARYNGITIS 04/17/2011 SHAY DO, INDIA K 462 ACUTE PHARYNGITIS 04/17/2011 462 ACUTE PHARYNGITIS 04/17/2011 PATRICE DIAS MD 462 ACUTE PHARYNGITIS 04/17/2011 SHAY DO, INDIA K 462 ACUTE PHARYNGITIS 04/17/2011 RAJOTTE APRON CLEANER, UTE A 462 ACUTE PHARYNGITIS 04/17/2011 RAJOTTE APRON CLEANER, UTE A 462 ACUTE PHARYNGITIS 04/17/2011 RAJOTTE APRON CLEANER, UTE A 462 ACUTE PHARYNGITIS 04/17/2011 CONRAD APRON CLEANER FREYA R 462 ACUTE PHARYNGITIS 04/17/2011 RAJOTTE APRON CLEANER, UTE A 462 ACUTE PHARYNGITIS 04/17/2011 RAJOTTE APRON CLEANER, UTE A 462 ACUTE PHARYNGITIS 04/17/2011 CONRAD APRON CLEANERMARY KelleyFREYA R 462 ACUTE PHARYNGITIS 04/17/2011 SHAY DO, INDIA K 462 ACUTE PHARYNGITIS 04/17/2011 RAJOTTE APRON CLEANER, UTE A 462 ACUTE PHARYNGITIS 05/17/2011 LANDY RODRIGUEZ, CHIQUITA CAUSEYH 372.30 CONJUNCTIVITIS UNSPECIFIED 05/17/2011 BILL APRON CLEANER, CHIQUITA SARAH 465.9 UPPER RESPIRATORY INFECTION 05/17/2011 BILL APRON CLEANER, CHIQUITA SARAH 372.30 CONJUNCTIVITIS UNSPECIFIED 05/17/2011 BILL APRON CLEANER, CHIQUITA SARAH 465.9 UPPER RESPIRATORY INFECTION 05/17/2011 SHAY DO, INDIA K 372.30 CONJUNCTIVITIS UNSPECIFIED 05/17/2011 SHAY DO, INDIA K 465.9 UPPER RESPIRATORY INFECTION 05/17/2011 SHAY DO, INDIA K 372.30 CONJUNCTIVITIS UNSPECIFIED 05/17/2011 SHAY DO, INDIA K 465.9 UPPER RESPIRATORY INFECTION 05/17/2011 372.30 CONJUNCTIVITIS UNSPECIFIED 05/17/2011 465.9 UPPER RESPIRATORY INFECTION 05/17/2011 PATRICE DIAS MD 372.30 CONJUNCTIVITIS UNSPECIFIED 05/17/2011 PATRICE DIAS MD 465.9 UPPER RESPIRATORY INFECTION 05/17/2011 SHAY DO, INDIA K 372.30 CONJUNCTIVITIS UNSPECIFIED 05/17/2011 SHAY DO, INDIA K 465.9 UPPER RESPIRATORY INFECTION 05/17/2011 RAJCRISTOPHERE APRON CLEANER, UTE A 372.30 CONJUNCTIVITIS UNSPECIFIED 05/17/2011 RAJOTTE APRON CLEANER, UTE A 465.9 UPPER RESPIRATORY INFECTION 05/17/2011 RAJOTTE APRON CLEANER, UTE A 372.30 CONJUNCTIVITIS UNSPECIFIED 05/17/2011 RAJOTTE APRON CLEANER, UTE A 465.9 UPPER RESPIRATORY INFECTION 05/17/2011 RAJOTTE APRON CLEANER, UTE A 372.30 CONJUNCTIVITIS UNSPECIFIED 05/17/2011 RAJOTTE APRON CLEANER, UTE A 465.9 UPPER RESPIRATORY INFECTION 05/17/2011 MARTINES APRON CLEANER, FREYA R 372.30 CONJUNCTIVITIS UNSPECIFIED 05/17/2011 MARTINES APRON CLEANER, FREYA R 465.9 UPPER RESPIRATORY INFECTION 05/17/2011 RAJOTTE APRON CLEANER, UTE A 372.30 CONJUNCTIVITIS UNSPECIFIED 05/17/2011 RAJOTTE APRON CLEANER, UTE A 465.9 UPPER RESPIRATORY INFECTION 05/17/2011 RAJOTTE APRON CLEANER, UTE A 372.30 CONJUNCTIVITIS UNSPECIFIED 05/17/2011 RAJOTTE APRON CLEANER, UTE A 465.9 UPPER RESPIRATORY INFECTION 05/17/2011 MARTINES APRON CLEANER, FREYA R 372.30 CONJUNCTIVITIS UNSPECIFIED 05/17/2011 MARTINES APRON CLEANER, FREYA R 465.9 UPPER RESPIRATORY INFECTION 05/17/2011 SHAY DO, INDIA K 372.30 CONJUNCTIVITIS UNSPECIFIED 05/17/2011 SHAY DO, INDIA K 465.9 UPPER RESPIRATORY INFECTION 05/17/2011 RAJOTTE APRON CLEANER, UTE A 372.30 CONJUNCTIVITIS UNSPECIFIED 05/17/2011 RAJOTTE APRON CLEANER, UTE A 465.9 UPPER RESPIRATORY INFECTION 10/31/2011 LANDY RODRIGUEZ CHIQUITA KEARA 078.10 WARTS 10/31/2011 BILL APRON CLEANER, CHIQUITA KEARA 078.10 WARTS 10/31/2011 SHAY DO, INDIA K 078.10 WARTS 10/31/2011 SHAY DO, INDIA K 078.10 WARTS 10/31/2011 078.10 WARTS 10/31/2011 PATRICE DIAS MD 078.10 WARTS 10/31/2011 SHAY DO, INDIA K 078.10 WARTS 10/31/2011 RAJOTTE APRON CLEANER, UTE A 078.10 WARTS 10/31/2011 RAJOTTE APRON CLEANER, UTE A 078.10 WARTS 10/31/2011 RAJOTTE APRON CLEANER, UTE A 078.10 WARTS 10/31/2011 MARTINES APRON CLEANER, FREYA R 078.10 WARTS 10/31/2011 RAJOTTE APRON CLEANER, UTE A 078.10 WARTS 10/31/2011 RAJOTTE APRON CLEANER, UTE A 078.10 WARTS 10/31/2011 MARTINES APRON CLEANER, FREYA R 078.10 WARTS 10/31/2011 SHAY DO, INDIA K 078.10 WARTS 10/31/2011 RAJOTTE APRON CLEANER, UTE A 078.10 WARTS 11/19/2011 BILL APRON CLEANER, CHIQUITA KEARA 078.12 PLANTAR WART 11/19/2011 BILL APRON CLEANER, CHIQUITA KEARA 078.19 WARTS, COMMON 11/19/2011 BILL APRON CLEANER, CHIQUITA KEARA 078.12 PLANTAR WART 11/19/2011 BILL APRON CLEANER, CHIQUITA KEARA 078.19 WARTS, COMMON 11/19/2011 SHAY DO, INDIA K 078.12 PLANTAR WART 11/19/2011 SHAY DO, INDIA K 078.19 WARTS, COMMON 11/19/2011 SHAY DO, INDIA K 078.12 PLANTAR WART 11/19/2011 SHAY DO, INDIA K 078.19 WARTS, COMMON 11/19/2011 078.12 PLANTAR WART 11/19/2011 078.19 WARTS, COMMON 11/19/2011 LARISSA GARCÍA, PATRICE 078.12 PLANTAR WART 11/19/2011 LARISSA GARCÍA, PATRICE 078.19 WARTS, COMMON 11/19/2011 SHAY DO, INDIA K 078.12 PLANTAR WART 11/19/2011 SHAY DO, INDIA K 078.19 WARTS, COMMON 11/19/2011 RAJOTTE APRON CLEANER, UTE A 078.12 PLANTAR WART 11/19/2011 RAJOTTE APRON CLEANER, UTE A 078.19 WARTS, COMMON 11/19/2011 RAJOTTE APRON CLEANER, UTE A 078.12 PLANTAR WART 11/19/2011 RAJOTTE APRON CLEANER, UTE A 078.19 WARTS, COMMON 11/19/2011 RAJOTTE APRON CLEANER, UTE A 078.12 PLANTAR WART 11/19/2011 RAJOTTE APRON CLEANER, UTE A 078.19 WARTS, COMMON 11/19/2011 MARTINES APRON CLEANER, FREYA R 078.12 PLANTAR WART 11/19/2011 MARTINES APRON CLEANER, FREYA R 078.19 WARTS, COMMON 11/19/2011 RAJOTTE APRON CLEANER, UTE A 078.12 PLANTAR WART 11/19/2011 RAJOTTE APRON CLEANER, UTE A 078.19 WARTS, COMMON 11/19/2011 RAJOTTE APRON CLEANER, UTE A 078.12 PLANTAR WART 11/19/2011 RAJOTTE APRON CLEANER, UTE A 078.19 WARTS, COMMON 11/19/2011 MARTINES APRON CLEANER, FREYA R 078.12 PLANTAR WART 11/19/2011 MARTINES APRON CLEANER, FREYA R 078.19 WARTS, COMMON 11/19/2011 SHAY DO, INDIA K 078.12 PLANTAR WART 11/19/2011 SHAY DO, INDIA K 078.19 WARTS, COMMON 11/19/2011 RAJOTTE APRON CLEANER, UTE A 078.12 PLANTAR WART 11/19/2011 RAJOTTE APRON CLEANER, UTE A 078.19 WARTS, COMMON 12/10/2011 BILL APRON CLEANER, CHIQUITA KEARA V45.89 OTHER POSTSURGICAL STATUS 12/10/2011 BILLBE RODRIGUEZ CHIQUITA SARAH V45.89 OTHER POSTSURGICAL STATUS 12/10/2011 SHAY DO, IND[place] K V45.89 OTHER POSTSURGICAL STATUS 12/10/2011 SHAY DO, IND[place] K V45.89 OTHER POSTSURGICAL STATUS 12/10/2011 V45.89 OTHER POSTSURGICAL STATUS 12/10/2011 PATRICE DIAS MD V45.89 OTHER POSTSURGICAL STATUS 12/10/2011 SHAY DO, [place] K V45.89 OTHER POSTSURGICAL STATUS 12/10/2011 RAJOTTE APRON CLEANER, UTE A V45.89 OTHER POSTSURGICAL STATUS 12/10/2011 RAJOTTE APRON CLEANER, UTE A V45.89 OTHER POSTSURGICAL STATUS 12/10/2011 RAJOTTE APRON CLEANER, UTE A V45.89 OTHER POSTSURGICAL STATUS 12/10/2011 MARTINES APRON CLEANER, FREYA R V45.89 OTHER POSTSURGICAL STATUS 12/10/2011 RAJOTTE APRON CLEANER, UTE A V45.89 OTHER POSTSURGICAL STATUS 12/10/2011 RAJOTTE APRON CLEANER, UTE A V45.89 OTHER POSTSURGICAL STATUS 12/10/2011 FREYA MARTINES APRN V45.89 OTHER POSTSURGICAL STATUS 12/10/2011 INDIA SHAY DO V45.89 OTHER POSTSURGICAL STATUS 12/10/2011 RAJOTTE APRON CLEANER, UTE A V45.89 OTHER POSTSURGICAL STATUS 12/17/2011 LANDY APRON CLEANERCHIQUITA V58.32 ENCOUNTER FOR REMOVAL OF SUTURES 12/17/2011 BILL JENNIFERCHIQUITA V58.32 ENCOUNTER FOR REMOVAL OF SUTURES 12/17/2011 INDIA SHAY DO K V58.32 ENCOUNTER FOR REMOVAL OF SUTURES 12/17/2011 INDIA SHAY DO V58.32 ENCOUNTER FOR REMOVAL OF SUTURES 12/17/2011 V58.32 ENCOUNTER FOR REMOVAL OF SUTURES 12/17/2011 PATRICE DIAS MD V58.32 ENCOUNTER FOR REMOVAL OF SUTURES 12/17/2011 INDIA SHAY DO V58.32 ENCOUNTER FOR REMOVAL OF SUTURES 12/17/2011 RAJOTTE APRON CLEANER, UTE A V58.32 ENCOUNTER FOR REMOVAL OF SUTURES 12/17/2011 RAJOTTE APRON CLEANER UTE A V58.32 ENCOUNTER FOR REMOVAL OF SUTURES 12/17/2011 RAJOTTE APRON CLEANER, UTE A V58.32 ENCOUNTER FOR REMOVAL OF SUTURES 12/17/2011 FREYA MARTINES APRN R V58.32 ENCOUNTER FOR REMOVAL OF SUTURES 12/17/2011 RAJOTTE APRON CLEANER, UTE A V58.32 ENCOUNTER FOR REMOVAL OF SUTURES 12/17/2011 RAJOTTE APRON CLEANER, UTE A V58.32 ENCOUNTER FOR REMOVAL OF SUTURES 12/17/2011 FREYA MARTINES APRN R V58.32 ENCOUNTER FOR REMOVAL OF SUTURES 12/17/2011 MOLLY SHAY DOA K V58.32 ENCOUNTER FOR REMOVAL OF SUTURES 12/17/2011 RAJOTTE APRON CLEANER, UTE A V58.32 ENCOUNTER FOR REMOVAL OF SUTURES 05/23/2012 Ot 787.03 VOMITING ALONE 05/23/2012 Ot 789.03 ABDOMINAL PAIN, RIGHT LOWER QUADRANT 06/25/2012 INDIA SHAY DO V72.85 OTHER SPECIFIED EXAMINATION 06/25/2012 INDIA SHAY DO V72.85 OTHER SPECIFIED EXAMINATION 06/25/2012 V72.85 OTHER SPECIFIED EXAMINATION 06/25/2012 PATRICE DIAS MD V72.85 OTHER SPECIFIED EXAMINATION 06/25/2012 SHAY DO, INDIA K V72.85 OTHER SPECIFIED EXAMINATION 06/25/2012 RAJOTTE APRON CLEANER, UTE A V72.85 OTHER SPECIFIED EXAMINATION 06/25/2012 RAJOTTE APRON CLEANER, UTE A V72.85 OTHER SPECIFIED EXAMINATION 06/25/2012 RAJOTTE APRON CLEANER, UTE A V72.85 OTHER SPECIFIED EXAMINATION 06/25/2012 CONRAD APRON CLEANERMARYFREYA R V72.85 OTHER SPECIFIED EXAMINATION 06/25/2012 RAJOTTE APRON CLEANER, UTE A V72.85 OTHER SPECIFIED EXAMINATION 06/25/2012 RAJOTTE APRON CLEANER, UTE A V72.85 OTHER SPECIFIED EXAMINATION 06/25/2012 CONRAD RODRIGUEZ FREYA R V72.85 OTHER SPECIFIED EXAMINATION 06/25/2012 SHAY DO INDIA K V72.85 OTHER SPECIFIED EXAMINATION 06/25/2012 RAJOTTE APRON CLEANER, UTE A V72.85 OTHER SPECIFIED EXAMINATION 07/08/2012 MOLLY SHAY DOA K 682.2 CELLULITIS AND ABSCESS OF TRUNK 07/08/2012 JASPAL CONRAD [place] K V76.19 OTHER SCREENING BREAST EXAMINATION 07/08/2012 682.2 CELLULITIS AND ABSCESS OF TRUNK 07/08/2012 V76.19 OTHER SCREENING BREAST EXAMINATION 07/08/2012 PATRICE DIAS MD 682.2 CELLULITIS AND ABSCESS OF TRUNK 07/08/2012 PATRICE DIAS MD V76.19 OTHER SCREENING BREAST EXAMINATION 07/08/2012 SHAY MOLLY CONRADA K 682.2 CELLULITIS AND ABSCESS OF TRUNK 07/08/2012 MOLLY SHAY DOA K V76.19 OTHER SCREENING BREAST EXAMINATION 07/08/2012 RAJOTTE APRON CLEANER, TUE A 682.2 CELLULITIS AND ABSCESS OF TRUNK 07/08/2012 RAJOTTE APRON CLEANER, UTE A V76.19 OTHER SCREENING BREAST EXAMINATION 07/08/2012 RAJOTTE APRON CLEANER, UTE A 682.2 CELLULITIS AND ABSCESS OF TRUNK 07/08/2012 RAJOTTE APRON CLEANER, UTE A V76.19 OTHER SCREENING BREAST EXAMINATION 07/08/2012 RAJOTTE APRON CLEANER, UTE A 682.2 CELLULITIS AND ABSCESS OF TRUNK 07/08/2012 RAJOTTE APRON CLEANER, UTE A V76.19 OTHER SCREENING BREAST EXAMINATION 07/08/2012 MARTINES APRON CLEANER, FREYA R 682.2 CELLULITIS AND ABSCESS OF TRUNK 07/08/2012 MARTINES APRON CLEANER, FREYA R V76.19 OTHER SCREENING BREAST EXAMINATION 07/08/2012 RAJOTTE APRON CLEANER, UTE A 682.2 CELLULITIS AND ABSCESS OF TRUNK 07/08/2012 RAJOTTE APRON CLEANER, UTE A V76.19 OTHER SCREENING BREAST EXAMINATION 07/08/2012 RAJOTTE APRON CLEANER, UTE A 682.2 CELLULITIS AND ABSCESS OF TRUNK 07/08/2012 RAJOTTE APRON CLEANER, UTE A V76.19 OTHER SCREENING BREAST EXAMINATION 07/08/2012 MARTINES APRON CLEANER, FREYA R 682.2 CELLULITIS AND ABSCESS OF TRUNK 07/08/2012 MARTINES APRON CLEANER, FREYA R V76.19 OTHER SCREENING BREAST EXAMINATION 07/08/2012 SHAY DO, INDIA K 682.2 CELLULITIS AND ABSCESS OF TRUNK 07/08/2012 SHAY DO, IND[place] K V76.19 OTHER SCREENING BREAST EXAMINATION 07/08/2012 RAJOTTE APRON CLEANER, UTE A 682.2 CELLULITIS AND ABSCESS OF TRUNK 07/08/2012 RAJOTTE APRON CLEANER, UTE A V76.19 OTHER SCREENING BREAST EXAMINATION 02/05/2013 LARISSA GARCÍA, PATRICE 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 02/05/2013 PATRICE DIAS MD V03.89 MENINGOCOCCAL DX 02/05/2013 PATRICE DIAS MD V04.81 FLU SHOT 02/05/2013 PATRICE DIAS MD V20.2 WELL CHILD 02/05/2013 SHAY DO, INDIA K 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 02/05/2013 SHAY DO, INDIA K V03.89 MENINGOCOCCAL DX 02/05/2013 SHAY DO, INDIA K V04.81 FLU SHOT 02/05/2013 SHAY DO, INDIA K V20.2 WELL CHILD 02/05/2013 RAJOTTE APRON CLEANER, UTE A 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 02/05/2013 RAJOTTE APRON CLEANER, UTE A V03.89 MENINGOCOCCAL DX 02/05/2013 RAJOTTE APRON CLEANER, UTE A V04.81 FLU SHOT 02/05/2013 KENOTTE APRON CLEANER, UTE A V20.2 WELL CHILD 02/05/2013 RAJOTTE APRON CLEANER, UTE A 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 02/05/2013 RAJOTTE APRON CLEANER, UTE A V03.89 MENINGOCOCCAL DX 02/05/2013 RAJOTTE APRON CLEANER, UTE A V04.81 FLU SHOT 02/05/2013 RAJOTTE APRON CLEANER, UTE A V20.2 WELL CHILD 02/05/2013 RAJOTTE APRON CLEANER, UTE A 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 02/05/2013 RAJOTTE APRON CLEANER, UTE A V03.89 MENINGOCOCCAL DX 02/05/2013 RAJOTTE APRON CLEANER, UTE A V04.81 FLU SHOT 02/05/2013 RAJOTTE APRON CLEANER, UTE A V20.2 WELL CHILD 02/05/2013 MARTINES APRON CLEANER, FREYA R 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 02/05/2013 AMRTINES APRON CLEANER, FREYA R V03.89 MENINGOCOCCAL DX 02/05/2013 CONRAD APRON CLEANER FREYA R V04.81 FLU SHOT 02/05/2013 CONRAD APRON CLEANER FREYA R V20.2 WELL CHILD 02/05/2013 RAJOTTE APRON CLEANER, UTE A 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 02/05/2013 RAJOTTE APRON CLEANER, UTE A V03.89 MENINGOCOCCAL DX 02/05/2013 RAJOTTE APRON CLEANER, UTE A V04.81 FLU SHOT 02/05/2013 RAJOTTE APRON CLEANER, UTE A V20.2 WELL CHILD 02/05/2013 RAJOTTE APRON CLEANER, UTE A 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 02/05/2013 RAJOTTE APRON CLEANER, UTE A V03.89 MENINGOCOCCAL DX 02/05/2013 RAJOTTE APRON CLEANER, UTE A V04.81 FLU SHOT 02/05/2013 RAJOTTE APRON CLEANER, UTE A V20.2 WELL CHILD 02/05/2013 MARTINES APRON CLEANER, FREYA R 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 02/05/2013 MARTINES APRON CLEANER, FREYA R V03.89 MENINGOCOCCAL DX 02/05/2013 MARTINES APRON CLEANER, FREYA R V04.81 FLU SHOT 02/05/2013 MARTINES APRON CLEANER, FREYA R V20.2 WELL CHILD 02/05/2013 SHAY DO, [place] K 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 02/05/2013 SHAY DO, [place] V03.89 MENINGOCOCCAL DX 02/05/2013 SHAY DO, [place] V04.81 FLU SHOT 02/05/2013 SHAY DO, [place] V20.2 WELL CHILD 02/05/2013 TYREEE APRON CLEANER, UTE A 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 02/05/2013 RAJOTTE APRON CLEANER, UTE A V03.89 MENINGOCOCCAL DX 02/05/2013 RAJOTTE APRON CLEANER, UTE A V04.81 FLU SHOT 02/05/2013 RAJOTTE APRON CLEANER, UTE A V20.2 WELL CHILD 12/22/2013 JASPAL CONRAD [place] V25.09 CONTRACEPTIVE COUNSELING - GENERAL 12/22/2013 JASPAL CONRAD [place] V74.5 STD SCREEN 12/22/2013 RAJOTTE APRON CLEANER, UTE A V25.09 CONTRACEPTIVE COUNSELING - GENERAL 12/22/2013 RAJOTTE APRON CLEANER, UTE A V74.5 STD SCREEN 12/22/2013 RAJOTTE APRON CLEANER, UTE A V25.09 CONTRACEPTIVE COUNSELING - GENERAL 12/22/2013 RAJOTTE APRON CLEANER, UTE A V74.5 STD SCREEN 12/22/2013 RAJOTTE APRON CLEANER, UTE A V25.09 CONTRACEPTIVE COUNSELING - GENERAL 12/22/2013 RAJOTTE APRON CLEANER, UTE A V74.5 STD SCREEN 12/22/2013 MARY MARTINES APRNRICIA R V25.09 CONTRACEPTIVE COUNSELING - GENERAL 12/22/2013 CONRAD RODRIGUEZ FREYA R V74.5 STD SCREEN 12/22/2013 RAJOTTE APRON CLEANER, UTE A V25.09 CONTRACEPTIVE COUNSELING - GENERAL 12/22/2013 RAJOTTE APRON CLEANER, UTE A V74.5 STD SCREEN 12/22/2013 RAJOTTE APRON CLEANER, UTE A V25.09 CONTRACEPTIVE COUNSELING - GENERAL 12/22/2013 RAJOTTE APRON CLEANER, UTE A V74.5 STD SCREEN 12/22/2013 MARY MARTINES APRNRICIA R V25.09 CONTRACEPTIVE COUNSELING - GENERAL 12/22/2013 MARY MARTINES APRNRICIA R V74.5 STD SCREEN 12/22/2013 SHAY DO, [place] V25.09 CONTRACEPTIVE COUNSELING - GENERAL 12/22/2013 SHAY DO, [place] V74.5 STD SCREEN 12/22/2013 TYREEE APRON CLEANER, UTE A V25.09 CONTRACEPTIVE COUNSELING - GENERAL 12/22/2013 RAJOTTE APRON CLEANER, UTE A V74.5 STD SCREEN 01/19/2014 RAJOTTE APRON CLEANER, UTE A 491.21 BRONCHITIS AECB 01/19/2014 RAJOTTE APRON CLEANER, UTE A 786.07 WHEEZING 01/19/2014 RAJOTTE APRON CLEANER, UTE A 786.2 COUGH 01/19/2014 RAJOTTE APRON CLEANER, UTE A 491.21 BRONCHITIS AECB 01/19/2014 RAJOTTE APRON CLEANER, UTE A 786.07 WHEEZING 01/19/2014 RAJOTTE APRON CLEANER, UTE A 786.2 COUGH 01/19/2014 RAJOTTE APRON CLEANER, UTE A 491.21 BRONCHITIS AECB 01/19/2014 RAJOTTE APRON CLEANER, UTE A 786.07 WHEEZING 01/19/2014 RAJOTTE APRON CLEANER, UTE A 786.2 COUGH 01/19/2014 MARTINES APRON CLEANER, FREYA R 491.21 BRONCHITIS AECB 01/19/2014 MARTINES APRON CLEANER, FREYA R 786.07 WHEEZING 01/19/2014 MARTINES APRON CLEANER, FREYA R 786.2 COUGH 01/19/2014 RAJOTTE APRON CLEANER, UTE A 491.21 BRONCHITIS AECB 01/19/2014 RAJOTTE APRON CLEANER, UTE A 786.07 WHEEZING 01/19/2014 RAJOTTE APRON CLEANER, UTE A 786.2 COUGH 01/19/2014 RAJOTTE APRON CLEANER, UTE A 491.21 BRONCHITIS AECB 01/19/2014 RAJOTTE APRON CLEANER, UTE A 786.07 WHEEZING 01/19/2014 RAJOTTE APRON CLEANER, UTE A 786.2 COUGH 01/19/2014 MARTINES APRON CLEANER, FREYA R 491.21 BRONCHITIS AECB 01/19/2014 MARTINES APRON CLEANER, FREYA R 786.07 WHEEZING 01/19/2014 MARTINES APRON CLEANER, FREYA R 786.2 COUGH 01/19/2014 SHAY DO, [place] K 491.21 BRONCHITIS AECB 01/19/2014 SHAY DO, [place] K 786.07 WHEEZING 01/19/2014 SHAY DO, [place] K 786.2 COUGH 01/19/2014 RAJOTTE APRON CLEANER, UTE A 491.21 BRONCHITIS AECB 01/19/2014 RAJOTTE APRON CLEANER, UTE A 786.07 WHEEZING 01/19/2014 RAJOTTE APRON CLEANER, UTE A 786.2 COUGH 03/18/2014 RAJOTTE APRON CLEANER, UTE A 477.9 RHINITIS 03/18/2014 RAJOTTE APRON CLEANER, UTE A E869.4 SECOND HAND TOBACCO SMOKE 03/18/2014 MARTINES APRON CLEANER, FREYA R 477.9 RHINITIS 03/18/2014 MARTINES APRON CLEANER, FREYA R E869.4 SECOND HAND TOBACCO SMOKE 03/18/2014 RAJOTTE APRON CLEANER, UTE A 477.9 RHINITIS 03/18/2014 RAJOTTE APRON CLEANER, UTE A E869.4 SECOND HAND TOBACCO SMOKE 03/18/2014 RAJOTTE APRON CLEANER, UTE A 477.9 RHINITIS 03/18/2014 RAJOTTE APRON CLEANER, UTE A E869.4 SECOND HAND TOBACCO SMOKE 03/18/2014 MARTINES APRON CLEANER, FREYA R 477.9 RHINITIS 03/18/2014 MARTINES APRON CLEANER, FREYA R E869.4 SECOND HAND TOBACCO SMOKE 03/18/2014 SHAY DO, [place] K 477.9 RHINITIS 03/18/2014 SHAY DO, [place] E869.4 SECOND HAND TOBACCO SMOKE 03/18/2014 KENOTTE APRON CLEANER, UTE A 477.9 RHINITIS 03/18/2014 RAJOTTE APRON CLEANER, UTE A E869.4 SECOND HAND TOBACCO SMOKE 04/01/2014 CONRAD RODRIGUEZ, FREYA R 558.9 GASTROENTERITIS NONINFECTIOUS 04/01/2014 RAJOTTE APRON CLEANER, UTE A 558.9 GASTROENTERITIS NONINFECTIOUS 04/01/2014 RAJOTTE APRON CLEANER, UTE A 558.9 GASTROENTERITIS NONINFECTIOUS 04/01/2014 MARTINES APRON CLEANER, FREYA R 558.9 GASTROENTERITIS NONINFECTIOUS 04/01/2014 SHAY DO, [place] K 558.9 GASTROENTERITIS NONINFECTIOUS 04/01/2014 RAJOTTE APRON CLEANER, UTE A 558.9 GASTROENTERITIS NONINFECTIOUS 04/28/2014 KENOTTE APRON CLEANER, UTE A 381.81 EUSTACHIAN TUBE DYSFUNCTION 04/28/2014 DIANA RODRIGUEZ, UTE A 381.81 EUSTACHIAN TUBE DYSFUNCTION 04/28/2014 MARISEL MARTINES APRNIA R 381.81 EUSTACHIAN TUBE DYSFUNCTION 04/28/2014 SHAY DO, [place] K 381.81 EUSTACHIAN TUBE DYSFUNCTION 04/28/2014 RAJOTTE APRON CLEANER, UTE A 381.81 EUSTACHIAN TUBE DYSFUNCTION 05/26/2014 KENOTTE JENNIFER UTE A 787.02 NAUSEA ALONE 05/26/2014 RAJOTTE APRON CLEANER, UTE A 789.03 ABDOMINAL PAIN RIGHT LOWER QUADRANT 05/26/2014 MARISEL MARTINES APRNIA R 787.02 NAUSEA ALONE 05/26/2014 MARY MARTINES APRNRICIA R 789.03 ABDOMINAL PAIN RIGHT LOWER QUADRANT 05/26/2014 SHAY DO, [place] 787.02 NAUSEA ALONE 05/26/2014 SHAY DO, [place] 789.03 ABDOMINAL PAIN RIGHT LOWER QUADRANT 05/26/2014 KENOTTHannah RODRIGUEZ UTE A 787.02 NAUSEA ALONE 05/26/2014 KENOTTE APRON CLEANER UTE A 789.03 ABDOMINAL PAIN RIGHT LOWER QUADRANT 05/31/2014 MARY MARTINES APRNRICIA R 789.09 ABDOMINAL PAIN OTHER SPECIFIED SITE 05/31/2014 SHAY DO, [place] K 789.09 ABDOMINAL PAIN OTHER SPECIFIED SITE 05/31/2014 KENOTTE APRON CLEANER, UTE A 789.09 ABDOMINAL PAIN OTHER SPECIFIED SITE 07/26/2014 SHAY DO, [place] K 493.90 ASTHMA UNSPECIFIED 07/26/2014 SHAY DO, [place] 784.7 EPISTAXIS 07/26/2014 SHAY DO, [place] V20.0 HEALTH SUPERVISION OF [place] 07/26/2014 SHAY DO, [place] V22.2 STATE INCIDENTAL 07/26/2014 TYREEE APRON CLEANER, UTE A 493.90 ASTHMA UNSPECIFIED 07/26/2014 TYREEE JENNIFER UTE A 784.7 EPISTAXIS 07/26/2014 KENOTTE APRON CLEANER, UTE A V20.0 HEALTH SUPERVISION OF [place] 07/26/2014 DIANA RODRIGUEZ UTE A V22.2 STATE INCIDENTAL 08/10/2014 Ot V22.1 08/26/2014 DIANA RODRIGUEZ UTE A 709.9 SKIN LESIONS 10/26/2014 AMADA GARCÍA, JAYDE Pcak Ot V28.81 01/10/2015 Ot 813.42 01/10/2015 Ot E000.8 01/10/2015 Ot E849.0 01/10/2015 Ot E884.2 01/10/2015 Ot 078.10 01/10/2015 Ot V72.63 01/10/2015 Ot V74.8 01/10/2015 Ot 078.10 01/10/2015 Ot 314.01 01/10/2015 Ot V22.1 01/10/2015 JAYDE YBARRA MD Ot V28.81 01/27/2015 AMADA GARCÍA, JAYDE Pack Ot 660.41 SHOULDER DYSTOCIA-DELIV 01/27/2015 AMADA GARCÍA, JAYDE Pack Ot V06.1 [id number], COMBINED [ 01/27/2015 JAYDE YBARRA MD Ot V27.0 DELIVER-SINGLE LIVEBORN 02/03/2016 Ot 078.10 VIRAL WARTS , UNSPECIFIED 02/03/2016 Ot V72.63 PRE- PROCEDURAL LABORATORY EXAMINATION 02/03/2016 Ot V74.8 SCREEN- BACTERIAL DIS NEC 02/03/2016 Ot 078.10 VIRAL WARTS , UNSPECIFIED 02/03/2016 Ot 314.01 ATTN DEFICIT W HYPERACT 02/03/2016 Ot V22.1 SUPERVIS [facility] NORMAL PREG 02/03/2016 JAYDE YBARRA MD Ot V28.81 ENCOUNTER FOR ANATOMIC SURVEY 02/03/2016 Ot 078.10 VIRAL WARTS , UNSPECIFIED 02/03/2016 Ot V72.63 PRE- PROCEDURAL LABORATORY EXAMINATION 02/03/2016 Ot V74.8 SCREEN- BACTERIAL DIS NEC 02/03/2016 Ot 078.10 VIRAL WARTS , UNSPECIFIED 02/03/2016 Ot 314.01 ATTN DEFICIT W HYPERACT 02/03/2016 Ot V22.1 SUPERVIS OT NORMAL PREG 02/03/2016 JAYDE YBARRA MD Ot V28.81 ENCOUNTER FOR ANATOMIC SURVEY 02/03/2016 FILIBERTO BECKETT Ot J40 BRONCHITIS, NOT SPECIFIED ACUTE OR CH 02/03/2016 FILIBERTO BECKETT Ot N39.0 URINARY TRACT INFECTION, SITE NOT SPECIF 02/03/2016 FILIBERTO BECKETT Ot R07.89 OTHER CHEST PAIN 02/05/2016 PAUL LEY DO Ot F17.210 NICOTINE DEPENDENCE, CIGARETTES, UNCOMPL 02/05/2016 PAUL LEY DO Ot J40 BRONCHITIS, NOT SPECIFIED ACUTE OR CH 02/05/2016 PAUL LEY DO Ot R06.02 SHORTNESS OF BREATH 02/05/2016 PAUL LEY DO Ot R07.89 OTHER CHEST PAIN 05/09/2016 CHILO GARCÍA, MANOJ Dave Ot F17.210 NICOTINE DEPENDENCE, CIGARETTES, UNCOMPL 05/09/2016 CHILO GARCÍA, MANOJ Dave Ot J02.9 ACUTE PHARYNGITIS, UNSPECIFIED 05/10/2016 CHILO GARCÍA, MANOJ Dave Ot F17.210 NICOTINE DEPENDENCE, CIGARETTES, UNCOMPL 05/10/2016 CHILO GARCÍA, MANOJ Dave Ot J02.9 ACUTE PHARYNGITIS, UNSPECIFIED 05/23/2016 Ot 078.10 VIRAL WARTS , UNSPECIFIED 05/23/2016 Ot V72.63 PRE- PROCEDURAL LABORATORY EXAMINATION 05/23/2016 Ot V74.8 SCREEN- BACTERIAL DIS NEC 05/23/2016 Ot 078.10 VIRAL WARTS , UNSPECIFIED 05/23/2016 Ot 314.01 ATTN DEFICIT W HYPERACT 05/23/2016 Ot V22.1 SUPERVIS OT NORMAL PREG 05/23/2016 JAYDE YBARRA MD Ot V28.81 ENCOUNTER FOR ANATOMIC SURVEY 08/16/2016 Ot 078.10 VIRAL WARTS , UNSPECIFIED 08/16/2016 Ot V72.63 PRE- PROCEDURAL LABORATORY EXAMINATION 08/16/2016 Ot V74.8 SCREEN- BACTERIAL DIS NEC 08/16/2016 Ot 078.10 VIRAL WARTS , UNSPECIFIED 08/16/2016 Ot 314.01 ATTN DEFICIT W HYPERACT 08/16/2016 Ot V22.1 SUPERVIS OT NORMAL PREG 08/16/2016 JAYDE YBARRA MD Ot V28.81 ENCOUNTER FOR ANATOMIC SURVEY 08/16/2016 Ot 078.10 VIRAL WARTS , UNSPECIFIED 08/16/2016 Ot V72.63 PRE- PROCEDURAL LABORATORY EXAMINATION 08/16/2016 Ot V74.8 SCREEN- BACTERIAL DIS NEC 08/16/2016 Ot 078.10 VIRAL WARTS , UNSPECIFIED 08/16/2016 Ot 314.01 ATTN DEFICIT W HYPERACT 08/16/2016 Ot V22.1 SUPERVIS OTH NORMAL PREG 08/16/2016 JAYDE YBARRA MD Ot V28.81 ENCOUNTER FOR ANATOMIC SURVEY 08/23/2016 Ot 078.10 VIRAL WARTS , UNSPECIFIED 08/23/2016 Ot V72.63 PRE- PROCEDURAL LABORATORY EXAMINATION 08/23/2016 Ot V74.8 SCREEN- BACTERIAL DIS NEC 08/23/2016 Ot 078.10 VIRAL WARTS , UNSPECIFIED 08/23/2016 Ot 314.01 ATTN DEFICIT W HYPERACT 08/23/2016 Ot V22.1 SUPERVIS OTH NORMAL PREG 08/23/2016 JAYDE YBARRA MD Ot V28.81 ENCOUNTER FOR ANATOMIC SURVEY 08/23/2016 DIAN MASTERS APRON CLEANER Ot N30.01 ACUTE CYSTITIS WITH HEMATURIA 08/23/2016 DIAN MASTERS APRON CLEANER Ot N30.01 ACUTE CYSTITIS WITH HEMATURIA 08/24/2016 DIAN MASTERS APRON CLEANER Ot N30.01 ACUTE CYSTITIS WITH HEMATURIA 08/30/2016 DIAN MASTERS APRON CLEANER Ot N30.01 ACUTE CYSTITIS WITH HEMATURIA 08/30/2016 Ot 078.10 VIRAL WARTS , UNSPECIFIED 08/30/2016 Ot V72.63 PRE- PROCEDURAL LABORATORY EXAMINATION 08/30/2016 Ot V74.8 SCREEN- BACTERIAL DIS NEC 08/30/2016 Ot 078.10 VIRAL WARTS , UNSPECIFIED 08/30/2016 Ot 314.01 ATTN DEFICIT W HYPERACT 08/30/2016 Ot V22.1 SUPERVIS OT NORMAL PREG 08/30/2016 JAYDE YBARRA MD Ot V28.81 ENCOUNTER FOR ANATOMIC SURVEY 08/30/2016 DIAN MASTERS APRON CLEANER Ot N30.01 ACUTE CYSTITIS WITH HEMATURIA 08/31/2016 DIAN MASTERS APRON CLEANER Ot N30.01 ACUTE CYSTITIS WITH HEMATURIA 09/07/2016 ELIZABETH CHOW APRN Ot E27.9 DISORDER OF ADRENAL GLAND, UNSPECIFIED 09/07/2016 ELIZABETH CHOW APRN Ot F17.210 NICOTINE DEPENDENCE, CIGARETTES, UNCOMPL 09/07/2016 ELIZABETH CHOW APRN Ot K52.9 NONINFECTIVE GASTROENTERITIS AND COLITIS 09/07/2016 CHOW, PETER J APRON CLEANER Ot K87 DISORD OF GB, BILIARY TRAC AND PANCREAS 09/07/2016 ELIZABETH CHOW APRON CLEANER Ot R19.7 DIARRHEA, UNSPECIFIED 09/07/2016 Ot 078.10 VIRAL WARTS , UNSPECIFIED 09/07/2016 Ot V72.63 PRE- PROCEDURAL LABORATORY EXAMINATION 09/07/2016 Ot V74.8 SCREEN- BACTERIAL DIS NEC 09/07/2016 Ot 078.10 VIRAL WARTS , UNSPECIFIED 09/07/2016 Ot 314.01 ATTN DEFICIT W HYPERACT 09/07/2016 Ot V22.1 SUPERVIS OT NORMAL PREG 09/07/2016 JAYDE YBARRA MD Ot V28.81 ENCOUNTER FOR ANATOMIC SURVEY 09/07/2016 DIAN MASTERS APRON CLEANER Ot N30.01 ACUTE CYSTITIS WITH HEMATURIA 09/09/2016 ELIZABETH CHOW APRN Ot E27.9 DISORDER OF ADRENAL GLAND, UNSPECIFIED 09/09/2016 ELIZABETH CHOW APRN Ot F17.210 NICOTINE DEPENDENCE, CIGARETTES, UNCOMPL 09/09/2016 ELIZABETH CHOW APRN Ot K52.9 NONINFECTIVE GASTROENTERITIS AND COLITIS 09/09/2016 ELIZABETH CHOW APRON CLEANER Ot K87 DISORD OF GB, BILIARY TRAC AND PANCREAS 09/09/2016 ELIZABETH CHOW APRN Ot R19.7 DIARRHEA, UNSPECIFIED 11/05/2017 Ot V22.1 SUPERVIS OTH NORMAL PREG 11/05/2017 JAYDE YBARRA MD Ot V28.81 ENCOUNTER FOR ANATOMIC SURVEY 11/05/2017 DIAN MASTERS APRN Ot N30.01 ACUTE CYSTITIS WITH HEMATURIA 11/06/2017 CHILO GARCÍA, MANOJ Dave Ot F32.9 MAJOR DEPRESSIVE DISORDER, SINGLE EPISOD 11/06/2017 CHILO GARCÍA, MANOJ Dave Ot J45.909 UNSPECIFIED ASTHMA, UNCOMPLICATED 11/06/2017 CHILO GARCÍA, MANOJ Dave Ot S01.551A OPEN BITE OF LIP, INITIAL ENCOUNTER 11/06/2017 CHILO GARCÍA, MANOJ Dave Ot W54.0XXA BITTEN BY DOG, INITIAL ENCOUNTER 11/06/2017 CHILO GARCÍA, MANOJ Dave Ot Z23 ENCOUNTER FOR IMMUNIZATION 11/06/2017 CHILO GARCÍA, MANOJ T Ot Z77.22 CNTCT W AND EXPSR TO ENVIRON TOBACCO SMO 11/06/2017 CHILO GARCÍA, MANOJ Dave Ot Z80.3 FAMILY HISTORY OF MALIGNANT NEOPLASM OF 11/06/2017 CHILO GARCÍA, MANOJ Dave Ot Z97.5 PRESENCE OF (INTRAUTERINE) CONTRACEPTIVE Procedures Code Description [place] [address] PSYCH IND W/MED CK 20 04/23/2012 26473 PURE TONE HEARING TEST AIR 02/05/2013 91173 TEST, URINE (IN- HOUSE) 12/22/2013 93177 GC/CHLAM URINE (STATE) 12/22/2013 85577 NEBULIZER TREATMENT 01/19/2014 51991 OXIMETRY 01/19/2014 56898 STREP A (IN-HOUSE) 02/26/2014 37423 THERAPUTIC INJ SQ/IM 04/28/2014 J1040 DEPO MEDROL 80 MG INJ 04/28/2014 43822 ROUTINE VENIPUNCTURE 05/31/2014 64149 UA W/ CULTURE IF INDICATED 05/31/2014 88227 CBC 05/31/2014 08563 CRP 05/31/2014 96.49 OTHER INSTILLATION 01/24/2015 73.6 EPISIOTOMY 01/25/2015 Results Test Result Range Complete blood count (CBC) with automated white blood cell (WBC) differential - 02/03/16 10:55 Blood leukocytes automated count (number/volume) 5.7 10*3/uL 4.3-11.0 Blood erythrocytes automated count (number/volume) 4.63 10*6/uL 4.35-5.85 Venous blood hemoglobin measurement (mass/volume) 11.6 g/dL 11.5-16.0 Blood hematocrit (volume fraction) 36 % 35-52 Automated erythrocyte mean corpuscular volume 77 [foz_us] 80-99 Automated erythrocyte mean corpuscular hemoglobin (mass per erythrocyte) 25 pg 25-34 Automated erythrocyte mean corpuscular hemoglobin concentration measurement ( mass/volume) 32 g/dL 32-36 Automated erythrocyte distribution width ratio 14.3 % 10.0-14.5 Automated blood platelet count (count/volume) 321 10*3/uL 130-400 Automated blood platelet mean volume measurement 10.1 [foz_us] 7.4-10.4 Automated blood neutrophils/100 leukocytes 53 % 42-75 Automated blood lymphocytes/100 leukocytes 35 % 12-44 Blood monocytes/100 leukocytes 9 % 0-12 Automated blood eosinophils/100 leukocytes 2 % 0-10 Automated blood basophils/100 leukocytes 1 % 0-10 Blood neutrophils automated count (number/volume) 3.1 10*3 1.8-7.8 Blood lymphocytes automated count (number/volume) 2.0 10*3 1.0-4.0 Blood monocytes automated count (number/volume) 0.5 10*3 0.0-1.0 Automated eosinophil count 0.1 10*3/uL 0.0-0.3 Automated blood basophil count (count/volume) 0.0 10*3/uL 0.0-0.1 Serum or plasma choriogonadotropin ( test) detection - 02/03/16 10:55 Serum or plasma choriogonadotropin ( test) detection NEGATIVE NEGATIVE Comprehensive metabolic panel - 02/03/16 10:55 Serum or plasma sodium measurement (moles/volume) 140 mmol/L 135-145 Serum or plasma potassium measurement (moles/volume) 3.9 mmol/L 3.6-5.0 Serum or plasma chloride measurement (moles/volume) 110 mmol/L 98-107 Carbon dioxide 23 mmol/L 21-32 Serum or plasma anion gap determination (moles/volume) 7 mmol/L 5-14 Serum or plasma urea nitrogen measurement (mass/volume) 9 mg/dL 7-18 Serum or plasma creatinine measurement (mass/volume) 0.71 mg/dL 0.60-1.30 Serum or plasma urea nitrogen/creatinine mass ratio 13 NRG Serum or plasma creatinine measurement with calculation of estimated glomerular filtration rate > NRG Serum or plasma glucose measurement (mass/volume) 83 mg/dL 70-105 Serum or plasma calcium measurement (mass/volume) 9.2 mg/dL 8.5-10.1 Serum or plasma total bilirubin measurement (mass/volume) 0.4 mg/dL 0.1-1.0 Serum or plasma alkaline phosphatase measurement (enzymatic activity/volume) 102 U/L 60-350 Serum or plasma aspartate aminotransferase measurement (enzymatic activity/ volume) 15 U/L 5-34 Serum or plasma alanine aminotransferase measurement (enzymatic activity/volume ) 16 U/L 0-55 Serum or plasma protein measurement (mass/volume) 7.7 g/dL 6.4-8.2 Serum or plasma albumin measurement (mass/volume) 4.4 g/dL 3.2-4.5 Lipase - 02/03/16 10:55 Lipase 12 U/L 8-78 Complete urinalysis with reflex to culture - 02/03/16 11:07 Urine color determination DELMER NRG Urine clarity determination VERY CLOUDY NRG Urine pH measurement by test strip 5 5-9 Specific gravity of urine by test strip 1.020 1.016- 1.022 Urine protein assay by test strip, semi-quantitative 2+ NEGATIVE Urine glucose detection by automated test strip NEGATIVE NEGATIVE Erythrocytes detection in urine sediment by light microscopy 5+ NEGATIVE Urine ketones detection by automated test strip NEGATIVE NEGATIVE Urine nitrite detection by test strip NEGATIVE NEGATIVE Urine total bilirubin detection by test strip NEGATIVE NEGATIVE Urine urobilinogen measurement by automated test strip (mass/volume) NORMAL NORMAL Urine leukocyte esterase detection by dipstick 3+ NEGATIVE Automated urine sediment erythrocyte count by microscopy (number/high power field) > [HPF] NRG Automated urine sediment leukocyte count by microscopy (number/high power field ) [HPF] NRG Bacteria detection in urine sediment by light microscopy MODERATE NRG Squamous epithelial cells detection in urine sediment by light microscopy 10-25 NRG Crystals detection in urine sediment by light microscopy NONE NRG Casts detection in urine sediment by light microscopy NONE NRG Mucus detection in urine sediment by light microscopy NEGATIVE NRG Complete urinalysis with reflex to culture YES NRG Bacterial urine culture - 02/03/16 11:07 Bacterial urine culture [id number] NRG COLONY COUNT 10,000/ML - 100,000/ML NRG [place];REPORTABLE SEE COMMENT NRG Complete urinalysis with reflex to culture - 02/05/16 19:20 Urine color determination YELLOW NRG Urine clarity determination CLEAR NRG Urine pH measurement by test strip 6 5-9 Specific gravity of urine by test strip 1.020 1.016- 1.022 Urine protein assay by test strip, semi-quantitative NEGATIVE NEGATIVE Urine glucose detection by automated test strip NEGATIVE NEGATIVE Erythrocytes detection in urine sediment by light microscopy 2+ NEGATIVE Urine ketones detection by automated test strip NEGATIVE NEGATIVE Urine nitrite detection by test strip NEGATIVE NEGATIVE Urine total bilirubin detection by test strip NEGATIVE NEGATIVE Urine urobilinogen measurement by automated test strip (mass/volume) NORMAL NORMAL Urine leukocyte esterase detection by dipstick 1+ NEGATIVE Automated urine sediment erythrocyte count by microscopy (number/high power field) [HPF] NRG Automated urine sediment leukocyte count by microscopy (number/high power field ) [HPF] NRG Bacteria detection in urine sediment by light microscopy FEW NRG Squamous epithelial cells detection in urine sediment by light microscopy 10-25 NRG Crystals detection in urine sediment by light microscopy NONE NRG Casts detection in urine sediment by light microscopy NONE NRG Mucus detection in urine sediment by light microscopy NEGATIVE NRG Complete urinalysis with reflex to culture NO NRG Urine drug screening test - 02/05/16 19:20 Urine phencyclidine detection by screening method NEGATIVE NEGATIVE Urine benzodiazepines detection by screening method NEGATIVE NEGATIVE Urine cocaine detection NEGATIVE NEGATIVE Urine amphetamines detection by screening method NEGATIVE NEGATIVE Urine methamphetamine detection by screening method NEGATIVE NEGATIVE Urine cannabinoids detection by screening method POSITIVE NEGATIVE Urine opiates detection by screening method NEGATIVE NEGATIVE Urine barbiturates detection NEGATIVE NEGATIVE Screening urine tricyclic antidepressants detection NEGATIVE NEGATIVE Urine methadone detection by screening method NEGATIVE NEGATIVE Urine oxycodone detection NEGATIVE NEGATIVE Urine propoxyphene detection NEGATIVE NEGATIVE Urine buprenophrine screen NEGATIVE NEGATIVE Streptococcus pyogenes antigen detection - 05/09/16 22:05 Streptococcus pyogenes antigen detection NEGATIVE NEGATIVE Bacterial throat culture - 05/09/16 22:05 Bacterial throat culture NBS NRG Complete blood count (CBC) with automated white blood cell (WBC) differential - 09/07/16 15:50 Blood leukocytes automated count (number/volume) 11.3 10*3/uL 4.3-11.0 Blood erythrocytes automated count (number/volume) 4.40 10*6/uL 4.35-5.85 Venous blood hemoglobin measurement (mass/volume) 11.4 g/dL 11.5-16.0 Blood hematocrit (volume fraction) 35 % 35-52 Automated erythrocyte mean corpuscular volume 79 [foz_us] 80-99 Automated erythrocyte mean corpuscular hemoglobin (mass per erythrocyte) 26 pg 25-34 Automated erythrocyte mean corpuscular hemoglobin concentration measurement ( mass/volume) 33 g/dL 32-36 Automated erythrocyte distribution width ratio 14.5 % 10.0-14.5 Automated blood platelet count (count/volume) 269 10*3/uL 130-400 Automated blood platelet mean volume measurement 10.3 [foz_us] 7.4-10.4 Automated blood neutrophils/100 leukocytes 69 % 42-75 Automated blood lymphocytes/100 leukocytes 21 % 12-44 Blood monocytes/100 leukocytes 9 % 0-12 Automated blood eosinophils/100 leukocytes 0 % 0-10 Automated blood basophils/100 leukocytes 0 % 0-10 Blood neutrophils automated count (number/volume) 7.8 10*3 1.8-7.8 Blood lymphocytes automated count (number/volume) 2.4 10*3 1.0-4.0 Blood monocytes automated count (number/volume) 1.0 10*3 0.0-1.0 Automated eosinophil count 0.1 10*3/uL 0.0-0.3 Automated blood basophil count (count/volume) 0.0 10*3/uL 0.0-0.1 Complete urinalysis with reflex to culture - 09/07/16 15:50 Urine color determination YELLOW NRG Urine clarity determination CLEAR NRG Urine pH measurement by test strip 6 5-9 Specific gravity of urine by test strip 1.015 1.016- 1.022 Urine protein assay by test strip, semi-quantitative NEGATIVE NEGATIVE Urine glucose detection by automated test strip NEGATIVE NEGATIVE Erythrocytes detection in urine sediment by light microscopy NEGATIVE NEGATIVE Urine ketones detection by automated test strip NEGATIVE NEGATIVE Urine nitrite detection by test strip NEGATIVE NEGATIVE Urine total bilirubin detection by test strip NEGATIVE NEGATIVE Urine urobilinogen measurement by automated test strip (mass/volume) NORMAL NORMAL Urine leukocyte esterase detection by dipstick 2+ NEGATIVE Automated urine sediment erythrocyte count by microscopy (number/high power field) NONE NRG Automated urine sediment leukocyte count by microscopy (number/high power field ) [HPF] NRG Bacteria detection in urine sediment by light microscopy NEGATIVE NRG Squamous epithelial cells detection in urine sediment by light microscopy 5-10 NRG Crystals detection in urine sediment by light microscopy NONE NRG Casts detection in urine sediment by light microscopy NONE NRG Mucus detection in urine sediment by light microscopy NEGATIVE NRG Complete urinalysis with reflex to culture NO NRG Comprehensive metabolic panel - 09/07/16 15:50 Serum or plasma sodium measurement (moles/volume) 140 mmol/L 135-145 Serum or plasma potassium measurement (moles/volume) 3.2 mmol/L 3.6-5.0 Serum or plasma chloride measurement (moles/volume) 106 mmol/L 98-107 Carbon dioxide 24 mmol/L 21-32 Serum or plasma anion gap determination (moles/volume) 10 mmol/L 5-14 Serum or plasma urea nitrogen measurement (mass/volume) 9 mg/dL 7-18 Serum or plasma creatinine measurement (mass/volume) 0.76 mg/dL 0.60-1.30 Serum or plasma urea nitrogen/creatinine mass ratio 12 NRG Serum or plasma creatinine measurement with calculation of estimated glomerular filtration rate > NRG Serum or plasma glucose measurement (mass/volume) 98 mg/dL 70-105 Serum or plasma calcium measurement (mass/volume) 9.0 mg/dL 8.5-10.1 Serum or plasma total bilirubin measurement (mass/volume) 0.4 mg/dL 0.1-1.0 Serum or plasma alkaline phosphatase measurement (enzymatic activity/volume) 82 U/L 40-136 Serum or plasma aspartate aminotransferase measurement (enzymatic activity/ volume) 13 U/L 5-34 Serum or plasma alanine aminotransferase measurement (enzymatic activity/volume ) 12 U/L 0-55 Serum or plasma protein measurement (mass/volume) 7.2 g/dL 6.4-8.2 Serum or plasma albumin measurement (mass/volume) 4.0 g/dL 3.2-4.5 Lipase - 09/07/16 15:50 Lipase 23 U/L 8-78 Encounters ACCT No. Visit Date/Time Discharge Status Pt. Type Provider Facility Loc./Unit Complaint [id number] 08/26/2014 10:26:00 08/26/2014 23:59:59 CLS Outpatient UTE ORTIZ APRN [id number] 07/26/2014 15:46:00 07/26/2014 23:59:59 CLS Outpatient INDIA SHAY DO [id number] 05/31/2014 12:59:00 05/31/2014 23:59:59 CLS Outpatient FREYA MARTINES APRN [id number] 05/26/2014 14:32:00 05/26/2014 23:59:59 CLS Outpatient UTE ORTIZ APRN [id number] 04/28/2014 09:29:00 04/28/2014 23:59:59 CLS Outpatient UTE ORTIZ APRN [id number] 04/01/2014 12:36:00 04/01/2014 23:59:59 CLS Outpatient FREYA MARTINES APRN [id number] 03/18/2014 15:10:00 03/18/2014 23:59:59 CLS Outpatient UTE ORTIZ APRN [id number] 02/26/2014 08:45:00 02/26/2014 23:59:59 CLS Outpatient UTE ORTIZ APRN [id number] 01/19/2014 08:55:00 01/19/2014 23:59:59 CLS Outpatient UTE ORTIZ APRN [id number] 12/22/2013 17:29:00 12/22/2013 23:59:59 CLS Outpatient JASPAL CONRAD [place] Fernandez [id number] 02/05/2013 15:22:00 02/05/2013 23:59:59 CLS Outpatient PATRICE DIAS MD [id number] 07/08/2012 15:03:00 07/08/2012 23:59:59 CLS Outpatient JASPAL CONRAD [place] Fernandez [id number] 06/25/2012 13:29:00 06/25/2012 23:59:59 CLS Outpatient JASPAL CONRADINDIA [id number] 06/19/2012 16:07:00 06/19/2012 23:59:59 CLS Outpatient LANDY UPNCHIQUITA [id number] 04/15/2012 16:22:00 04/15/2012 23:59:59 CLS Outpatient BILL APRON CLEANERCHIQUITA [id number] 09/16/2012 15:45:00 Document Registration [id number] 09/13/2014 15:38:27 ACT Document Registration [id number] 11/05/2017 15:28:00 11/05/2017 17:15:00 DIS Outpatient MANOJ WOO MD [facility] ER DOG BITE TO LIP [id number] 09/07/2016 15:36:00 09/07/2016 17:14:00 DIS Emergency ELIZABETH CHOW APRON CLEANER [facility] ER ABD PAIN [id number] 08/16/2016 15:49:00 08/16/2016 23:59:59 CLS Outpatient DIAN MASTESR APRON CLEANER [facility] RAD N30.01 [id number] 05/09/2016 21:37:00 05/09/2016 22:47:00 DIS Emergency MANOJ WOO MD [facility] ER SORE THROAT [id number] 02/05/2016 18:10:00 02/05/2016 20:28:00 DIS Emergency PAUL LEY DO [facility] ER R SIDE/CHEST PAIN/SOB [id number] 02/03/2016 10:03:00 02/03/2016 12:55:00 DIS Emergency FILIBERTO BECKETT [facility] ER CHEST/RIGHT ARM PAIN [id number] 01/24/2015 19:16:00 01/27/2015 12:00:00 DIS Inpatient JAYDE YBARRA MD [facility] LDRP INDUCTION [id number] 09/13/2014 15:37:00 09/13/2014 23:59:59 CLS Outpatient JAYDE YBARRA MD [facility] RAD SURVEY [id number] 07/26/2014 10:17:00 Document Registration [id number] 05/22/2012 21:20:00 Document Registration [id number] 11/29/2011 05:41:00 Document Registration [id number] 11/26/2011 09:01:00 Document Registration [id number] 07/28/2010 11:35:00 Document Registration
--- NOTE | 2018-03-08 09:32 | ED Cough/URI ---
General Chief Complaint: Cough/Cold/Flu Symptoms Stated Complaint: COLD SYMPTOMS Source: patient Exam Limitations: no limitations History of Present Illness Date Seen by Provider: Mar 08, 2018 Time Seen by Provider: 09:36 Initial Comments This 22-year-old white female presents with a complaint of nasal congestion, cough, general malaise, and small amount of diarrhea for the last 24 hours. The patient is taking no medications or treatment for present illness The patient has had no black or tarry stools, hematemesis, documented fever or chill, productive cough, palpitations, or chest pain. Allergies and Home Medications Allergies Coded Allergies: No Known Drug Allergies (Unverified , 11/29/11) Home Medications Amoxicillin/Potassium Clav 1 Each Tablet, 1 EACH PO BID Prescribed by: MANOJ QUIROZ on 11/05/17 170 Ciprofloxacin HCl 500 Mg Tablet, 500 MG PO BID Prescribed by: ELIZABETH CHOW on 09/07/16 1706 Patient Home Medication List Home Medication List Reviewed: Yes Review of Systems Review of Systems Constitutional: see HPI, malaise EENTM: see HPI Respiratory: see HPI, cough (nonproductive.) Cardiovascular: No chest pain, No palpitations Gastrointestinal: No abdominal pain; diarrhea; No nausea, No vomiting Genitourinary: no symptoms reported Musculoskeletal: no symptoms reported Skin: no symptoms reported Psychiatric/Neurological: No Symptoms Reported Hematologic/Lymphatic: No Symptoms Reported Immunological/Allergic: no symptoms reported Past Fhwztjw-Xduyvn-Hfnyrs Hx Past Med/Social Hx: Reviewed Nursing Past Med/Soc Hx Patient Social History Type Used: Cigarettes 2nd Hand Smoke Exposure: Yes Recent Foreign Travel: No Contact w/Someone Who Travel: No Recent Hopitalizations: No Immunizations Up To Date Tetanus Booster (TDap): Unknown Date of Influenza Vaccine: Feb 11, 2012 Seasonal Allergies Seasonal Allergies: No Past Medical History Surgeries: Yes (BMT'S; EAR DRUM REPAIR, UMBILICAL HERNIA; REMOVAL OF PLANTAR WARTS) Ear Surgery Respiratory: Yes Asthma Cardiac: No Neurological: No 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 Disorders: No Female 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 Disorders: Denies [employer] History: IUD Sexually Transmitted Disease: No Gastrointestinal: No Musculoskeletal: No Endocrine: No HEENT: Yes Chronic Ear Infection Cancer: No Psychosocial: Yes Depression Integumentary: No Blood Disorders: No Adverse Reaction/Blood Tranf: No Family Medical History Autism (Brothers) Diabetes mellitus (Father) FH: Down syndrome (Brother) FH: breast cancer (Maternal side) FH: stroke Heart murmur (Brother) Myocardial infarction (Grandfather) Physical Exam Vital Signs - First Documented 03/08/18 09:14 Temp 100.6 Pulse 101 Resp 20 B/P (MAP) 145/79 (101) Pulse Ox 97 O2 Delivery Room Air Capillary Refill : Height: 5'1.00" Weight: 215lbs. oz. 97.701877bh; 35.15 BMI Method:Stated General Appearance: no apparent distress Eyes: Bilateral Eye Normal Inspection HEENT: normal ENT inspection Neck: normal inspection Respiratory: lungs clear, normal breath sounds Cardiovascular: regular rate, rhythm Gastrointestinal: normal bowel sounds, non tender Extremities: normal range of motion, non-tender Neurologic/Psychiatric: no motor/sensory deficits, alert, normal mood/affect Skin: normal color, warm/dry Progress/Results/Core Measures Suspected Sepsis SIRS Temperature: Pulse: Respiratory Rate: Laboratory Tests 03/08/18 09:32: White Blood Count 8.0 Blood Pressure / Mean: Laboratory Tests 03/08/18 09:32: Platelet Count 240 Results/Orders Lab Results Laboratory Tests Test 03/08/18 09:18 03/08/18 09:32 Range/Units Group A Streptococcus Screen NEGATIVE NEGATIVE White Blood Count 8.0 4.3-11.0 10^3/uL Red Blood Count 4.54 4.35-5.85 10^6/uL Hemoglobin 12.5 11.5-16.0 G/DL Hematocrit 37 35-52 % Mean Corpuscular Volume 82 80-99 FL Mean Corpuscular Hemoglobin 28 25-34 PG Mean Corpuscular Hemoglobin Concent 34 32-36 G/DL Red Cell Distribution Width 13.3 10.0-14.5 % Platelet Count 240 130-400 10^3/uL Mean Platelet Volume 10.4 7.4-10.4 FL Neutrophils (%) (Auto) 71 42-75 % Lymphocytes (%) (Auto) 18 12-44 % Monocytes (%) (Auto) 10 0-12 % Eosinophils (%) (Auto) 1 0-10 % Basophils (%) (Auto) 0 0-10 % Neutrophils # (Auto) 5.7 1.8-7.8 X 10^3 Lymphocytes # (Auto) 1.4 1.0-4.0 X 10^3 Monocytes # (Auto) 0.8 0.0-1.0 X 10^3 Eosinophils # (Auto) 0.1 0.0-0.3 10^3/uL Basophils # (Auto) 0.0 0.0-0.1 10^3/uL Micro Results Microbiology 03/08/18 Influenza Types A,B Antigen (HUNTER) - Final, Complete My Orders Orders - KELLY GUEVARA MD Influenza A And B Antigens (03/08/18 09:24) Cbc With Automated Diff (03/08/18 09:24) Chest 1 View, Ap/Pa Only (03/08/18 09:24) Rapid Strep A Screen (03/08/18 10:52) Vital Signs/I&O 03/08/18 09:14 Temp 100.6 Pulse 101 Resp 20 B/P (MAP) 145/79 (101) Pulse Ox 97 O2 Delivery Room Air Capillary Refill : Progress Note : Time: 11:11 Progress Note The patient's laboratory evaluation including chest x-ray, CBC, strep, and influenza A and B were negative. Patient was informed of the laboratory findings. After discussion of treatment options the patient will utilize ibuprofen and/or Tylenol for discomfort, rest at home this , and follow up with [facility] on Saturday if she has any residual symptoms. I invited the patient to return the emergency Department should any further problems or questions. ECG Initial ECG Impression Date: Mar 08, 2018 Departure Impression Primary Impression: Viral syndrome Disposition: HOME, SELF-CARE Condition: Unchanged Departure-Patient Inst. Decision time for Depature: 11:13 Referrals: [facility] (PCP/Family) Primary Care Physician Patient Instructions: Viral Upper Respiratory Infection, Adult (DC) Add. Discharge Instructions: Ibuprofen and Tylenol for discomfort. Rest at home this weekend. Follow up with [facility] on Saturday. Return if any acute problems or questions. All discharge instructions reviewed with patient and/or family. Voiced understanding. KELLY GUEVARA MD Mar 08, 2018 09:32
[2018-03-08 09:40] LABS: BASOPHILS % (AUTO) 0 % (0-10); EOSINOPHILS # (AUTO) 0.1 10^3/uL (0.0-0.3); EOSINOPHILS % (AUTO) 1 % (0-10); HEMATOCRIT 37 % (35-52); HEMOGLOBIN 12.5 G/DL (11.5-16.0); LYMPHOCYTES # (AUTO) 1.4 X 10^3 (1.0-4.0); LYMPHOCYTES % (AUTO) 18 % (12-44); MEAN CORPUSCULAR HEMOGLOBIN 28 PG (25-34); MEAN CORPUSCULAR HGB CONC 34 G/DL (32-36); MEAN CORPUSCULAR VOLUME 82 FL (80-99); MEAN PLATELET VOLUME 10.4 FL (7.4-10.4); MONOCYTES # (AUTO) 0.8 X 10^3 (0.0-1.0); MONOCYTES % (AUTO) 10 % (0-12); NEUTROPHILS # (AUTO) 5.7 X 10^3 (1.8-7.8); NEUTROPHILS % (AUTO) 71 % (42-75); PLATELET COUNT 240 10^3/uL (130-400); RED BLOOD COUNT 4.54 10^6/uL (4.35-5.85); RED CELL DISTRIBUTION WIDTH 13.3 % (10.0-14.5)
--- NOTE | 2018-03-08 10:21 | Diagnostic Imaging Report ---
INDICATION: Fever, pain and diarrhea. Exam compared with 02/05/2016 Lungs are clear. The heart and vessels normal. There is no effusion or pneumothorax. There has been no change. IMPRESSION: Stable negative chest. Dictated by: Dictated on workstation # [id number]
[2018-03-08 11:21] VITALS: BP 145/79
== END 2018-03-08 11:20 | disposition home or self-care (01) ==
LOC: EDUNIT# 09:01 → ER 09:03
DX: B34.9 Viral infection, unspecified (principal); J45.909 Unspecified asthma, uncomplicated; F32.9 Major depressive disorder, single episode, unspecified; Z87.19 Personal history of other diseases of the digestive system; Z80.3 Family history of malignant neoplasm of breast; Z77.22 Contact with and (suspected) exposure to environmental tobacco smoke (acute) (chronic); Z82.49 Family history of ischemic heart disease and other diseases of the circulatory system; Z98.890 Other specified postprocedural states; Z97.5 Presence of (intrauterine) contraceptive device
CPT/HCPCS: 36415; 71045; 85025; 87430; 87804

== ENCOUNTER 2018-03-10 07:57 | Emergency (ER) | payer SELFPAY ==
[~2018-03-10] VITALS: Ht 154.9 cm; Wt 97.5 kg
--- OUTSIDE RECORDS SUMMARY | 2018-03-10 08:06 | XMS REPORT | Continuity of Care Document ---
Author Author [facility] Address Unknown Phone Unavailable Allergies Active Description Code Type Severity Reaction Onset Reported/Identified Relationship to Patient Clinical Status Yes No Known Drug Allergies [id number] Drug Allergy Unknown N/A 11/29/2011 Medications There [...] STREPTOCOCCUS, GROUP A: BETA HEMOLYTIC 08/02/2009 [employer], UTE A 034.0 PHARYNGITIS STREPTOCOCCUS, GROUP A: BETA HEMOLYTIC 08/02/2009 [employer], UTE A 034.0 PHARYNGITIS STREPTOCOCCUS, GROUP A: BETA HEMOLYTIC 08/02/2009 [employer], UTE A 034.0 PHARYNGITIS STREPTOCOCCUS, GROUP A: BETA HEMOLYTIC 08/02/2009 MARISEL MARTINES APRNIA R 034.0 PHARYNGITIS STREPTOCOCCUS, GROUP A: BETA HEMOLYTIC 08/02/2009 [employer], UTE A 034.0 PHARYNGITIS STREPTOCOCCUS, GROUP A: BETA HEMOLYTIC 08/02/2009 [employer], UTE A 034.0 PHARYNGITIS STREPTOCOCCUS, GROUP A: [...] V06.5 DT, TETANUS-DIPHTHERIA [Td] ,TDAP 07/20/2010 [employer], UTE A V06.5 DT, TETANUS-DIPHTHERIA [Td] ,TDAP 07/20/2010 [employer], UTE A V06.5 DT, TETANUS-DIPHTHERIA [Td] ,TDAP 07/20/2010 CONRAD RODRIGUEZ, FREYA R V06.5 DT, TETANUS-DIPHTHERIA [Td] ,TDAP 07/20/2010 [employer], UTE A V06.5 DT, TETANUS-DIPHTHERIA [Td] ,TDAP 07/20/2010 [employer], UTE A V06.5 DT, TETANUS-DIPHTHERIA [Td] ,TDAP [...] E884.2 ACCIDENTAL FALL FROM CHAIR 07/28/2010 [employer], UTE A 719.08 EFFUSION OF JOINT OF OTHER SPECIFIED SITES 07/28/2010 [employer], UTE A 813.80 CLOSED FRACTURE OF UNSPECIFIED PART OF FOREARM 07/28/2010 [employer], UTE A 959.3 OTHER AND UNSPECIFIED INJURY TO ELBOW FOREARM AND WRIST 07/28/2010 [employer], UTE A E849.0 HOME ACCIDENTS 07/28/2010 [employer], UTE A E884.2 ACCIDENTAL FALL FROM CHAIR 07/28/2010 [employer], UTE A 719.08 EFFUSION OF JOINT OF OTHER SPECIFIED SITES 07/28/2010 [employer], UTE A 813.80 CLOSED FRACTURE OF UNSPECIFIED PART OF FOREARM 07/28/2010 [employer], UTE A 959.3 OTHER AND UNSPECIFIED INJURY TO ELBOW FOREARM AND WRIST 07/28/2010 [employer], UTE A E849.0 HOME ACCIDENTS 07/28/2010 [employer], UTE A E884.2 ACCIDENTAL FALL FROM CHAIR 07/28/2010 [employer], UTE A 719.08 EFFUSION OF JOINT OF OTHER SPECIFIED SITES 07/28/2010 [employer], UTE A 813.80 CLOSED FRACTURE OF UNSPECIFIED PART OF FOREARM 07/28/2010 [employer], UTE A 959.3 OTHER AND UNSPECIFIED INJURY TO ELBOW FOREARM AND WRIST 07/28/2010 [employer], UTE A E849.0 HOME ACCIDENTS 07/28/2010 [employer], UTE A E884.2 ACCIDENTAL FALL FROM CHAIR [...] E884.2 ACCIDENTAL FALL FROM CHAIR 07/28/2010 [employer], UTE A 719.08 EFFUSION OF JOINT OF OTHER SPECIFIED SITES 07/28/2010 [employer], UTE A 813.80 CLOSED FRACTURE OF UNSPECIFIED PART OF FOREARM 07/28/2010 [employer], UTE A 959.3 OTHER AND UNSPECIFIED INJURY TO ELBOW FOREARM AND WRIST 07/28/2010 [employer], UTE A E849.0 HOME ACCIDENTS 07/28/2010 [employer], UTE A E884.2 ACCIDENTAL FALL FROM CHAIR 07/28/2010 [employer], UTE A 719.08 EFFUSION OF JOINT OF OTHER SPECIFIED SITES 07/28/2010 [employer], UTE A 813.80 CLOSED FRACTURE OF UNSPECIFIED PART OF FOREARM 07/28/2010 [employer], UTE A 959.3 OTHER AND UNSPECIFIED INJURY TO ELBOW FOREARM AND WRIST 07/28/2010 [employer], UTE A E849.0 HOME ACCIDENTS 07/28/2010 [employer], UTE A E884.2 ACCIDENTAL FALL FROM CHAIR 07/28/2010 CONRAD RODRIGUEZ FREYA R 719.08 EFFUSION OF JOINT OF OTHER SPECIFIED SITES 07/28/2010 [employer], FREYA R 813.80 CLOSED FRACTURE OF UNSPECIFIED PART OF FOREARM 07/28/2010 [employer], FREYA R 959.3 OTHER AND UNSPECIFIED INJURY TO ELBOW FOREARM AND WRIST 07/28/2010 [employer], FREYA R E849.0 HOME ACCIDENTS 07/28/2010 [employer], FREYA R E884.2 ACCIDENTAL FALL FROM CHAIR [...] E884.2 ACCIDENTAL FALL FROM CHAIR 07/28/2010 [employer], UTE A 719.08 EFFUSION OF JOINT OF OTHER SPECIFIED SITES 07/28/2010 [employer] UTE A 813.80 CLOSED FRACTURE OF UNSPECIFIED PART OF FOREARM 07/28/2010 [employer], UTE A 959.3 OTHER AND UNSPECIFIED INJURY TO ELBOW FOREARM AND WRIST 07/28/2010 [employer] UTE A E849.0 HOME ACCIDENTS 07/28/2010 [employer], UTE A E884.2 ACCIDENTAL FALL FROM CHAIR 09/15/2010 LANDY RODRIGUEZ CHIQUITA KEARA 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 09/15/2010 LANDY RODRIGUEZ CHIQUITA KEARA 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 09/15/2010 SHAY DO, INDIA K 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 09/15/2010 SHAY DO, INDIA K 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 09/15/2010 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 09/15/2010 PATRICE DIAS MD 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 09/15/2010 SHAY DO, INDIA K 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 09/15/2010 [employer], UTE A 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 09/15/2010 [employer], UTE A 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 09/15/2010 [employer], UTE A 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 09/15/2010 [employer], FREYA R 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 09/15/2010 [employer], UTE A 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 09/15/2010 [employer], UTE A 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 09/15/2010 [employer], FREYA R 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 09/15/2010 SHAY DO, INDIA K 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 09/15/2010 [employer], UTE A 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 02/15/2011 [employer], CHIQUITA SARAH 314.00 ADHD INATTENTIVE 02/15/2011 [employer], CHIQUITA SARAH 314.00 ADHD INATTENTIVE 02/15/2011 SHAY DO, INDIA K 314.00 ADHD INATTENTIVE 02/15/2011 SHAY DO, INDIA K 314.00 ADHD INATTENTIVE 02/15/2011 314.00 ADHD INATTENTIVE 02/15/2011 PATRICE DIAS MD 314.00 ADHD INATTENTIVE 02/15/2011 SHAY DO, INDIA K 314.00 ADHD INATTENTIVE 02/15/2011 [employer], UTE A 314.00 ADHD INATTENTIVE 02/15/2011 [employer], UTE A 314.00 ADHD INATTENTIVE 02/15/2011 [employer], UTE A 314.00 ADHD INATTENTIVE 02/15/2011 [employer], FREYA R 314.00 ADHD INATTENTIVE 02/15/2011 [employer], UTE A 314.00 ADHD INATTENTIVE 02/15/2011 [employer], UTE A 314.00 ADHD INATTENTIVE 02/15/2011 [employer], FREYA R 314.00 ADHD INATTENTIVE 02/15/2011 SHAY DO, INDIA K 314.00 ADHD INATTENTIVE 02/15/2011 [employer], UTE A 314.00 ADHD INATTENTIVE 04/17/2011 [employer], CHIQUITA SARAH 462 ACUTE PHARYNGITIS 04/17/2011 [employer], CHIQUITA KEARA 462 ACUTE PHARYNGITIS 04/17/2011 SHAY DO, INDIA K 462 ACUTE PHARYNGITIS 04/17/2011 SHAY DO, INDIA K 462 ACUTE PHARYNGITIS 04/17/2011 462 ACUTE PHARYNGITIS 04/17/2011 PATRICE DIAS MD 462 ACUTE PHARYNGITIS 04/17/2011 SHAY DO, INDIA K 462 ACUTE PHARYNGITIS 04/17/2011 [employer], UTE A 462 ACUTE PHARYNGITIS 04/17/2011 [employer], UTE A 462 ACUTE PHARYNGITIS 04/17/2011 [employer], UTE A 462 ACUTE PHARYNGITIS 04/17/2011 [employer] FREYA R 462 ACUTE PHARYNGITIS 04/17/2011 [employer], UTE A 462 ACUTE PHARYNGITIS 04/17/2011 [employer], UTE A 462 ACUTE PHARYNGITIS 04/17/2011 [employer] INTERNSHIPMARY KelleyFREYA R 462 ACUTE PHARYNGITIS 04/17/2011 SHAY DO, INDIA K 462 ACUTE PHARYNGITIS 04/17/2011 [employer], UTE A 462 ACUTE PHARYNGITIS 05/17/2011 LANDY RODRIGUEZ, CHIQUITA CAUSEYH 372.30 CONJUNCTIVITIS UNSPECIFIED 05/17/2011 [employer], CHIQUITA SARAH 465.9 UPPER RESPIRATORY INFECTION 05/17/2011 [employer], CHIQUITA SARAH 372.30 CONJUNCTIVITIS UNSPECIFIED 05/17/2011 [employer], CHIQUITA SARAH 465.9 UPPER RESPIRATORY INFECTION 05/17/2011 [...] K 465.9 UPPER RESPIRATORY INFECTION 05/17/2011 [employer], UTE A 372.30 CONJUNCTIVITIS UNSPECIFIED 05/17/2011 [employer], UTE A 465.9 UPPER RESPIRATORY INFECTION 05/17/2011 [employer], UTE A 372.30 CONJUNCTIVITIS UNSPECIFIED 05/17/2011 [employer], UTE A 465.9 UPPER RESPIRATORY INFECTION 05/17/2011 [employer], UTE A 372.30 CONJUNCTIVITIS UNSPECIFIED 05/17/2011 [employer], UTE A 465.9 UPPER RESPIRATORY INFECTION 05/17/2011 [employer], FREYA R 372.30 CONJUNCTIVITIS UNSPECIFIED 05/17/2011 [employer], FREYA R 465.9 UPPER RESPIRATORY INFECTION 05/17/2011 [employer], UTE A 372.30 CONJUNCTIVITIS UNSPECIFIED 05/17/2011 [employer], UTE A 465.9 UPPER RESPIRATORY INFECTION 05/17/2011 [employer], UTE A 372.30 CONJUNCTIVITIS UNSPECIFIED 05/17/2011 [employer], UTE A 465.9 UPPER RESPIRATORY INFECTION 05/17/2011 [employer], FREYA R 372.30 CONJUNCTIVITIS UNSPECIFIED 05/17/2011 [employer], FREYA R 465.9 UPPER RESPIRATORY INFECTION 05/17/2011 SHAY DO, INDIA K 372.30 CONJUNCTIVITIS UNSPECIFIED 05/17/2011 SHAY DO, INDIA K 465.9 UPPER RESPIRATORY INFECTION 05/17/2011 [employer], UTE A 372.30 CONJUNCTIVITIS UNSPECIFIED 05/17/2011 [employer], UTE A 465.9 UPPER RESPIRATORY INFECTION 10/31/2011 LANDY RODRIGUEZ CHIQUITA KEARA 078.10 WARTS 10/31/2011 [employer], CHIQUITA KEARA 078.10 WARTS 10/31/2011 SHAY DO, INDIA K 078.10 WARTS 10/31/2011 SHAY DO, INDIA K 078.10 WARTS 10/31/2011 078.10 WARTS 10/31/2011 PATRICE DIAS MD 078.10 WARTS 10/31/2011 SHAY DO, INDIA K 078.10 WARTS 10/31/2011 [employer], UTE A 078.10 WARTS 10/31/2011 [employer], UTE A 078.10 WARTS 10/31/2011 [employer], UTE A 078.10 WARTS 10/31/2011 [employer], FREYA R 078.10 WARTS 10/31/2011 [employer], UTE A 078.10 WARTS 10/31/2011 [employer], UTE A 078.10 WARTS 10/31/2011 [employer], FREYA R 078.10 WARTS 10/31/2011 SHAY DO, INDIA K 078.10 WARTS 10/31/2011 [employer], UTE A 078.10 WARTS 11/19/2011 [employer], CHIQUITA KEARA 078.12 PLANTAR WART 11/19/2011 [employer], CHIQUITA KEARA 078.19 WARTS, COMMON 11/19/2011 [employer], CHIQUITA KEARA 078.12 PLANTAR WART 11/19/2011 [employer], CHIQUITA KEARA 078.19 WARTS, COMMON 11/19/2011 SHAY [...] INDIA K 078.19 WARTS, COMMON 11/19/2011 [employer], UTE A 078.12 PLANTAR WART 11/19/2011 [employer], UTE A 078.19 WARTS, COMMON 11/19/2011 [employer], UTE A 078.12 PLANTAR WART 11/19/2011 [employer], UTE A 078.19 WARTS, COMMON 11/19/2011 [employer], UTE A 078.12 PLANTAR WART 11/19/2011 [employer], UTE A 078.19 WARTS, COMMON 11/19/2011 [employer], FREYA R 078.12 PLANTAR WART 11/19/2011 [employer], FREYA R 078.19 WARTS, COMMON 11/19/2011 [employer], UTE A 078.12 PLANTAR WART 11/19/2011 [employer], UTE A 078.19 WARTS, COMMON 11/19/2011 [employer], UTE A 078.12 PLANTAR WART 11/19/2011 [employer], UTE A 078.19 WARTS, COMMON 11/19/2011 [employer], FREYA R 078.12 PLANTAR WART 11/19/2011 [employer], FREYA R 078.19 WARTS, COMMON 11/19/2011 SHAY DO, INDIA K 078.12 PLANTAR WART 11/19/2011 SHAY DO, INDIA K 078.19 WARTS, COMMON 11/19/2011 [employer], UTE A 078.12 PLANTAR WART 11/19/2011 [employer], UTE A 078.19 WARTS, COMMON 12/10/2011 [employer], CHIQUITA KEARA V45.89 OTHER POSTSURGICAL STATUS 12/10/2011 BILLBE RODRIGUEZ CHIQUITA SARAH V45.89 OTHER POSTSURGICAL STATUS 12/10/2011 SHAY DO, INDIA K V45.89 OTHER POSTSURGICAL STATUS 12/10/2011 SHAY DO, INDIA K V45.89 OTHER POSTSURGICAL STATUS 12/10/2011 V45.89 OTHER POSTSURGICAL STATUS 12/10/2011 PATRICE DIAS MD V45.89 OTHER POSTSURGICAL STATUS 12/10/2011 SHAY DO, INDIA K V45.89 OTHER POSTSURGICAL STATUS 12/10/2011 [employer], UTE A V45.89 OTHER POSTSURGICAL STATUS 12/10/2011 [employer], UTE A V45.89 OTHER POSTSURGICAL STATUS 12/10/2011 [employer], UTE A V45.89 OTHER POSTSURGICAL STATUS 12/10/2011 [employer], FREYA R V45.89 OTHER POSTSURGICAL STATUS 12/10/2011 [employer], UTE A V45.89 OTHER POSTSURGICAL STATUS 12/10/2011 [employer], UTE A V45.89 OTHER POSTSURGICAL STATUS 12/10/2011 FREYA MARTINES APRN V45.89 OTHER POSTSURGICAL STATUS 12/10/2011 INDIA SHAY DO V45.89 OTHER POSTSURGICAL STATUS 12/10/2011 [employer], UTE A V45.89 OTHER POSTSURGICAL STATUS 12/17/2011 LANDY HR INTERNSHIPCHIQUITA V58.32 ENCOUNTER FOR REMOVAL OF SUTURES 12/17/2011 [...] ENCOUNTER FOR REMOVAL OF SUTURES 12/17/2011 [employer], UTE A V58.32 ENCOUNTER FOR REMOVAL OF SUTURES 12/17/2011 [employer] UTE A V58.32 ENCOUNTER FOR REMOVAL OF SUTURES 12/17/2011 [employer], UTE A V58.32 ENCOUNTER FOR REMOVAL OF SUTURES 12/17/2011 FREYA MARTINES APRN R V58.32 ENCOUNTER FOR REMOVAL OF SUTURES 12/17/2011 [employer], UTE A V58.32 ENCOUNTER FOR REMOVAL OF SUTURES 12/17/2011 [employer], UTE A V58.32 ENCOUNTER FOR REMOVAL OF SUTURES 12/17/2011 FREYA MARTINES APRN R V58.32 ENCOUNTER FOR REMOVAL OF SUTURES 12/17/2011 MOLLY SHAY DOA K V58.32 ENCOUNTER FOR REMOVAL OF SUTURES 12/17/2011 [employer], UTE A V58.32 ENCOUNTER FOR REMOVAL OF SUTURES 05/23/2012 Ot 787.03 VOMITING ALONE 05/23/2012 Ot 789.03 ABDOMINAL PAIN, RIGHT LOWER QUADRANT 06/25/2012 INDIA SHAY DO V72.85 OTHER SPECIFIED EXAMINATION 06/25/2012 INDIA SHAY DO V72.85 OTHER SPECIFIED EXAMINATION 06/25/2012 V72.85 OTHER SPECIFIED EXAMINATION 06/25/2012 PATRICE DIAS MD V72.85 OTHER SPECIFIED EXAMINATION 06/25/2012 SHAY DO, INDIA K V72.85 OTHER SPECIFIED EXAMINATION 06/25/2012 [employer], UTE A V72.85 OTHER SPECIFIED EXAMINATION 06/25/2012 [employer], UTE A V72.85 OTHER SPECIFIED EXAMINATION 06/25/2012 [employer], UTE A V72.85 OTHER SPECIFIED EXAMINATION 06/25/2012 CON[employer] HR INTERNSHIPMARYFREYA R V72.85 OTHER SPECIFIED EXAMINATION 06/25/2012 [employer], UTE A V72.85 OTHER SPECIFIED EXAMINATION 06/25/2012 [employer], UTE A V72.85 OTHER SPECIFIED EXAMINATION 06/25/2012 CONRAD RODRIGUEZ FREYA R V72.85 OTHER SPECIFIED EXAMINATION 06/25/2012 SHAY DO INDIA K V72.85 OTHER SPECIFIED EXAMINATION 06/25/2012 [employer], UTE A V72.85 OTHER SPECIFIED EXAMINATION 07/08/2012 [...] V76.19 OTHER SCREENING BREAST EXAMINATION 07/08/2012 [employer], UTE A 682.2 CELLULITIS AND ABSCESS OF TRUNK 07/08/2012 [employer], UTE A V76.19 OTHER SCREENING BREAST EXAMINATION 07/08/2012 [employer], UTE A 682.2 CELLULITIS AND ABSCESS OF TRUNK 07/08/2012 [employer], UTE A V76.19 OTHER SCREENING BREAST EXAMINATION 07/08/2012 [employer], UTE A 682.2 CELLULITIS AND ABSCESS OF TRUNK 07/08/2012 [employer], UTE A V76.19 OTHER SCREENING BREAST EXAMINATION 07/08/2012 [employer], FREYA R 682.2 CELLULITIS AND ABSCESS OF TRUNK 07/08/2012 [employer], FREYA R V76.19 OTHER SCREENING BREAST EXAMINATION 07/08/2012 [employer], UTE A 682.2 CELLULITIS AND ABSCESS OF TRUNK 07/08/2012 [employer], UTE A V76.19 OTHER SCREENING BREAST EXAMINATION 07/08/2012 [employer], UTE A 682.2 CELLULITIS AND ABSCESS OF TRUNK 07/08/2012 [employer], UTE A V76.19 OTHER SCREENING BREAST EXAMINATION 07/08/2012 [employer], FREYA R 682.2 CELLULITIS AND ABSCESS OF TRUNK 07/08/2012 [employer], FREYA R V76.19 OTHER SCREENING BREAST EXAMINATION 07/08/2012 SHAY DO, INDIA K 682.2 CELLULITIS AND ABSCESS OF TRUNK 07/08/2012 SHAY DO, INDIA K V76.19 OTHER SCREENING BREAST EXAMINATION 07/08/2012 [employer], UTE A 682.2 CELLULITIS AND ABSCESS OF TRUNK 07/08/2012 [employer], UTE A V76.19 OTHER SCREENING BREAST EXAMINATION 02/05/2013 LARISSA GACRÍA, PATRICE 736.89 OTHER ACQUIRED DEFORMITY OF OTHER [...] INDIA K V20.2 WELL CHILD 02/05/2013 [employer], UTE A 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 02/05/2013 [employer], UTE A V03.89 MENINGOCOCCAL DX 02/05/2013 [employer], UTE A V04.81 FLU SHOT 02/05/2013 [employer], UTE A V20.2 WELL CHILD 02/05/2013 [employer], UTE A 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 02/05/2013 [employer], UTE A V03.89 MENINGOCOCCAL DX 02/05/2013 [employer], UTE A V04.81 FLU SHOT 02/05/2013 [employer], UTE A V20.2 WELL CHILD 02/05/2013 [employer], UTE A 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 02/05/2013 [employer], UTE A V03.89 MENINGOCOCCAL DX 02/05/2013 [employer], UTE A V04.81 FLU SHOT 02/05/2013 [employer], UTE A V20.2 WELL CHILD 02/05/2013 [employer], FREYA R 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 02/05/2013 [employer], FREYA R V03.89 MENINGOCOCCAL DX 02/05/2013 [employer] FREYA R V04.81 FLU SHOT 02/05/2013 [employer] FREYA R V20.2 WELL CHILD 02/05/2013 [employer], UTE A 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 02/05/2013 [employer], UTE A V03.89 MENINGOCOCCAL DX 02/05/2013 [employer], UTE A V04.81 FLU SHOT 02/05/2013 [employer], UTE A V20.2 WELL CHILD 02/05/2013 [employer], UTE A 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 02/05/2013 [employer], UTE A V03.89 MENINGOCOCCAL DX 02/05/2013 [employer], TUE A V04.81 FLU SHOT 02/05/2013 [employer], UTE A V20.2 WELL CHILD 02/05/2013 [employer], FREYA R 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 02/05/2013 [employer], FREYA R V03.89 MENINGOCOCCAL DX 02/05/2013 [employer], FREYA R V04.81 FLU SHOT 02/05/2013 [employer], FREYA R V20.2 WELL CHILD 02/05/2013 SHAY DO, INDIA K 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 02/05/2013 SHAY DO, INDIA K V03.89 MENINGOCOCCAL DX 02/05/2013 SHAY DO, INDIA K V04.81 FLU SHOT 02/05/2013 SHAY DO, INDIA K V20.2 WELL CHILD 02/05/2013 TYREEE [employer]NS[employer], UTE A 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 02/05/2013 [employer], UTE A V03.89 MENINGOCOCCAL DX 02/05/2013 [employer], UTE A V04.81 FLU SHOT 02/05/2013 [employer], UTE A V20.2 WELL CHILD 12/22/2013 JASPAL CONRAD INDIA K V25.09 CONTRACEPTIVE COUNSELING - GENERAL 12/22/2013 JASPAL CONRAD IND[place] K V74.5 STD SCREEN 12/22/2013 [employer], UTE A V25.09 CONTRACEPTIVE COUNSELING - GENERAL 12/22/2013 [employer], UTE A V74.5 STD SCREEN 12/22/2013 [employer], UTE A V25.09 CONTRACEPTIVE COUNSELING - GENERAL 12/22/2013 [employer], UTE A V74.5 STD SCREEN 12/22/2013 [employer], UTE A V25.09 CONTRACEPTIVE COUNSELING - GENERAL 12/22/2013 [employer], UTE A V74.5 STD SCREEN 12/22/2013 MARY MARTINES APRNRICIA R V25.09 CONTRACEPTIVE COUNSELING - GENERAL 12/22/2013 CONRAD RODRIGUEZ FREYA R V74.5 STD SCREEN 12/22/2013 [employer], UTE A V25.09 CONTRACEPTIVE COUNSELING - GENERAL 12/22/2013 [employer], UTE A V74.5 STD SCREEN 12/22/2013 [employer], UTE A V25.09 CONTRACEPTIVE COUNSELING - GENERAL 12/22/2013 [employer], UTE A V74.5 STD SCREEN 12/22/2013 MARY MARTINES APRNRICIA R V25.09 CONTRACEPTIVE COUNSELING - GENERAL 12/22/2013 MARY MARTINES APRNRICIA R V74.5 STD SCREEN 12/22/2013 SHAY DO, [place] K V25.09 CONTRACEPTIVE COUNSELING - GENERAL 12/22/2013 SHAY DO, [place] K V74.5 STD SCREEN 12/22/2013 [employer], UTE A V25.09 CONTRACEPTIVE COUNSELING - GENERAL 12/22/2013 [employer], UTE A V74.5 STD SCREEN 01/19/2014 [employer], UTE A 491.21 BRONCHITIS AECB 01/19/2014 [employer], UTE A 786.07 WHEEZING 01/19/2014 [employer], UTE A 786.2 COUGH 01/19/2014 [employer], UTE A 491.21 BRONCHITIS AECB 01/19/2014 [employer], UTE A 786.07 WHEEZING 01/19/2014 [employer], UTE A 786.2 COUGH 01/19/2014 [employer], UTE A 491.21 BRONCHITIS AECB 01/19/2014 [employer], UTE A 786.07 WHEEZING 01/19/2014 [employer], UTE A 786.2 COUGH 01/19/2014 M[employer], FREYA R 491.21 BRONCHITIS AECB 01/19/2014 [employer], FREYA R 786.07 WHEEZING 01/19/2014 M[employer], FREYA R 786.2 COUGH 01/19/2014 [employer], UTE A 491.21 BRONCHITIS AECB 01/19/2014 [employer], UTE A 786.07 WHEEZING 01/19/2014 [employer], UTE A 786.2 COUGH 01/19/2014 [employer], UTE A 491.21 BRONCHITIS AECB 01/19/2014 [employer], UTE A 786.07 WHEEZING 01/19/2014 [employer], UTE A 786.2 COUGH 01/19/2014 [employer], FREYA R 491.21 BRONCHITIS AECB 01/19/2014 [employer], FREYA R 786.07 WHEEZING 01/19/2014 [employer], FREYA R 786.2 COUGH 01/19/2014 SHAY DO, IND[place] K 491.21 BRONCHITIS AECB 01/19/2014 SHAY DO, IND[place] K 786.07 WHEEZING 01/19/2014 SHAY DO, IND[place] K 786.2 COUGH 01/19/2014 [employer], UTE A 491.21 BRONCHITIS AECB 01/19/2014 [employer], UTE A 786.07 WHEEZING 01/19/2014 [employer], UTE A 786.2 COUGH 03/18/2014 [employer], UTE A 477.9 RHINITIS 03/18/2014 [employer], UTE A E869.4 SECOND HAND TOBACCO SMOKE 03/18/2014 [employer], FREYA R 477.9 RHINITIS 03/18/2014 [employer], FREYA R E869.4 SECOND HAND TOBACCO SMOKE 03/18/2014 [employer], UTE A 477.9 RHINITIS 03/18/2014 [employer], UTE A E869.4 SECOND HAND TOBACCO SMOKE 03/18/2014 [employer], UTE A 477.9 RHINITIS 03/18/2014 [employer], UTE A E869.4 SECOND HAND TOBACCO SMOKE 03/18/2014 [employer], FREYA R 477.9 RHINITIS 03/18/2014 [employer], FREYA R E869.4 SECOND HAND TOBACCO SMOKE 03/18/2014 SHAY DO, IND[place] K 477.9 RHINITIS 03/18/2014 SHAY DO, [place] K E869.4 SECOND HAND TOBACCO SMOKE 03/18/2014 [employer], UTE A 477.9 RHINITIS 03/18/2014 [employer], UTE A E869.4 SECOND HAND TOBACCO SMOKE 04/01/2014 CONRAD RODRIGUEZ, FREYA R 558.9 GASTROENTERITIS NONINFECTIOUS 04/01/2014 [employer], UTE A 558.9 GASTROENTERITIS NONINFECTIOUS 04/01/2014 [employer], UTE A 558.9 GASTROENTERITIS NONINFECTIOUS 04/01/2014 [employer], FREYA R 558.9 GASTROENTERITIS NONINFECTIOUS 04/01/2014 SHAY DO, IND[place] K 558.9 GASTROENTERITIS NONINFECTIOUS 04/01/2014 [employer], UTE A 558.9 GASTROENTERITIS NONINFECTIOUS 04/28/2014 [employer], UTE A 381.81 EUSTACHIAN TUBE DYSFUNCTION 04/28/2014 DIANA RODRIGUEZ, UTE A 381.81 EUSTACHIAN TUBE DYSFUNCTION 04/28/2014 MARISEL MARTINES APRNIA R 381.81 EUSTACHIAN TUBE DYSFUNCTION 04/28/2014 SHAY DO, [place] K 381.81 EUSTACHIAN TUBE DYSFUNCTION 04/28/2014 [employer], UTE A 381.81 EUSTACHIAN TUBE DYSFUNCTION 05/26/2014 KENOTTE JENNIFER UTE A 787.02 NAUSEA ALONE 05/26/2014 [employer], UTE A 789.03 ABDOMINAL PAIN RIGHT LOWER QUADRANT 05/26/2014 MARISEL MARTINES APRNIA R 787.02 NAUSEA ALONE 05/26/2014 MARY MARTINES APRNRICIA R 789.03 ABDOMINAL PAIN RIGHT LOWER QUADRANT 05/26/2014 SHAY DO, [place] K 787.02 NAUSEA ALONE 05/26/2014 SHAY DO, [place] K 789.03 ABDOMINAL PAIN RIGHT LOWER QUADRANT 05/26/2014 KENOTTHannah RODRIGUEZ UTE A 787.02 NAUSEA ALONE 05/26/2014 [employer] UTE A 789.03 ABDOMINAL PAIN RIGHT LOWER QUADRANT 05/31/2014 MARY MARTINES APRNRICIA R 789.09 ABDOMINAL PAIN OTHER SPECIFIED SITE 05/31/2014 SHAY DO, [place] K 789.09 ABDOMINAL PAIN OTHER SPECIFIED SITE 05/31/2014 [employer], UTE A 789.09 ABDOMINAL PAIN OTHER SPECIFIED SITE 07/26/2014 SHAY DO, [place] K 493.90 ASTHMA UNSPECIFIED 07/26/2014 SHAY DO, [place] K 784.7 EPISTAXIS 07/26/2014 SHAY DO, [place] K V20.0 HEALTH SUPERVISION OF [place]OUNDL[place] 07/26/2014 SHAY DO, [place] K V22.2 STATE INCIDENTAL 07/26/2014 [employer], UTE A 493.90 ASTHMA UNSPECIFIED 07/26/2014 TYREEE JENNIFER UTE A 784.7 EPISTAXIS 07/26/2014 [employer], UTE A V20.0 HEALTH SUPERVISION OF [place]OUNDL[place] 07/26/2014 DIANA RODRIGUEZ UTE A V22.2 STATE INCIDENTAL 08/10/2014 Ot V22.1 08/26/2014 DIANA RODRIGUEZ UTE A 709.9 SKIN LESIONS 10/26/2014 AMADA GARCÍA, JAYDE Pack Ot V28.81 01/10/2015 Ot 813.42 01/10/2015 Ot E000.8 01/10/2015 Ot E849.0 01/10/2015 Ot E884.2 01/10/2015 Ot 078.10 01/10/2015 Ot V72.63 01/10/2015 Ot V74.8 01/10/2015 Ot 078.10 01/10/2015 Ot 314.01 01/10/2015 Ot V22.1 01/10/2015 JAYDE YBARRA MD Ot V28.81 01/27/2015 AMADA GARCÍA, JAYDE Pack Ot 660.41 SHOULDER DYSTOCIA-DELIV 01/27/2015 AMADA GARCÍA, JAYDE Pack Ot V06.1 [id number], COMBINED [ 01/27/2015 JAYDE YBARRA MD Ot V27.0 DELIVER-SINGLE LIVEBORN 02/03/2016 Ot 078.10 VIRAL WARTS , UNSPECIFIED 02/03/2016 Ot V72.63 PRE- PROCEDURAL LABORATORY EXAMINATION 02/03/2016 Ot V74.8 SCREEN- BACTERIAL DIS NEC 02/03/2016 Ot 078.10 VIRAL WARTS , UNSPECIFIED 02/03/2016 Ot 314.01 ATTN DEFICIT W HYPERACT 02/03/2016 Ot V22.1 SUPERVIS [facility] NORMAL PREG 02/03/2016 JAYDE YBARRA MD [...] ENCOUNTER FOR ANATOMIC SURVEY 08/23/2016 DIAN MASTERS [employer] INTER[employer] Ot N30.01 ACUTE CYSTITIS WITH HEMATURIA 08/23/2016 DIAN MASTERS HR INTERNSHIP Ot N30.01 ACUTE CYSTITIS WITH HEMATURIA 08/24/2016 DIAN MASTERS HR INTERNSHIP Ot N30.01 ACUTE CYSTITIS WITH HEMATURIA 08/30/2016 DIAN MASTERS HR INTERNSHIP Ot N30.01 ACUTE CYSTITIS WITH HEMATURIA 08/30/2016 Ot 078.10 VIRAL WARTS , UNSPECIFIED 08/30/2016 Ot V72.63 PRE- PROCEDURAL LABORATORY EXAMINATION 08/30/2016 Ot V74.8 SCREEN- BACTERIAL DIS NEC 08/30/2016 Ot 078.10 VIRAL WARTS , UNSPECIFIED 08/30/2016 Ot 314.01 ATTN DEFICIT W HYPERACT 08/30/2016 Ot V22.1 SUPERVIS OT NORMAL PREG 08/30/2016 JAYDE YBARRA MD Ot V28.81 ENCOUNTER FOR ANATOMIC SURVEY 08/30/2016 DIAN MASTERS [employer] Ot N30.01 ACUTE CYSTITIS WITH HEMATURIA 08/31/2016 DIAN MASTERS [employer] INTERNSH[employer] Ot N30.01 ACUTE CYSTITIS WITH HEMATURIA 09/07/2016 ELIZABETH CHOW APRN Ot E27.9 DISORDER OF ADRENAL GLAND, UNSPECIFIED 09/07/2016 ELIZABETH CHOW APRN Ot F17.210 NICOTINE DEPENDENCE, CIGARETTES, UNCOMPL 09/07/2016 ELIZABETH CHOW APRN Ot K52.9 NONINFECTIVE GASTROENTERITIS AND COLITIS 09/07/2016 CHOW, PETER J HR INTERNSHIP Ot K87 DISORD OF GB, BILIARY TRAC AND PANCREAS 09/07/2016 ELIZABETH CHOW HR INTERNSHIP Ot R19.7 DIARRHEA, UNSPECIFIED 09/07/2016 Ot 078.10 VIRAL WARTS , UNSPECIFIED 09/07/2016 Ot V72.63 PRE- PROCEDURAL LABORATORY EXAMINATION 09/07/2016 Ot V74.8 SCREEN- BACTERIAL DIS NEC 09/07/2016 Ot 078.10 VIRAL WARTS , UNSPECIFIED 09/07/2016 Ot 314.01 ATTN DEFICIT W HYPERACT 09/07/2016 Ot V22.1 SUPERVIS OT NORMAL PREG 09/07/2016 JAYDE YBARRA MD Ot V28.81 ENCOUNTER FOR ANATOMIC SURVEY 09/07/2016 DIAN MASTERS [employer] INTER[employer] Ot N30.01 ACUTE CYSTITIS WITH HEMATURIA 09/09/2016 ELIZABETH CHOW APRN Ot E27.9 DISORDER OF ADRENAL GLAND, UNSPECIFIED 09/09/2016 ELIZABETH CHOW APRN Ot F17.210 NICOTINE DEPENDENCE, CIGARETTES, UNCOMPL 09/09/2016 ELIZABETH CHOW APRN Ot K52.9 NONINFECTIVE GASTROENTERITIS AND COLITIS 09/09/2016 ELIZABETH CHOW HR INTERNSHIP Ot K87 DISORD OF GB, BILIARY TRAC [...] Procedures Code [place] [address] PSYCH IND W/MED CK 20 04/23/2012 70010 PURE TONE HEARING TEST AIR 02/05/2013 94318 TEST, URINE (IN- HOUSE) 12/22/2013 60442 GC/CHLAM URINE (STATE) 12/22/2013 20401 NEBULIZER TREATMENT 01/19/2014 58678 OXIMETRY 01/19/2014 26740 STREP A (IN-HOUSE) 02/26/2014 90440 THERAPUTIC INJ SQ/IM 04/28/2014 J1040 DEPO MEDROL 80 MG INJ 04/28/2014 37016 ROUTINE VENIPUNCTURE 05/31/2014 10523 UA W/ CULTURE IF INDICATED 05/31/2014 86550 CBC 05/31/2014 12601 CRP 05/31/2014 96.49 OTHER INSTILLATION 01/24/2015 73.6 [...] culture - 02/03/16 11:07 Bacterial urine culture [id number] NRG COLONY COUNT 10,000/ML - 100,000/ML NRG [...] calculation of estimated glomerular filtration rate > NR Serum or plasma glucose measurement (mass/volume) 98 [...] - 09/07/16 15:50 Lipase 23 U/L 8-78 Influenza virus A and B antigen detection - 03/08/18 09:18 FLU RESULT NEGATIVE FOR INFLUENZA A AND B ANTIGENS BY IA NRG Streptococcus pyogenes antigen detection - 03/08/18 09:18 Streptococcus pyogenes antigen detection NEGATIVE NEGATIVE Bacterial throat culture - 03/08/18 09:18 Bacterial throat culture RTF NR QUANTITY OF GROWTH . [facility] Complete blood count (CBC) with automated white blood cell (WBC) differential - 03/08/18 09:32 Blood leukocytes automated count (number/volume) 8.0 10*3/uL 4.3-11.0 Blood erythrocytes automated count (number/volume) 4.54 10*6/uL 4.35-5.85 Venous blood hemoglobin measurement (mass/volume) 12.5 g/dL 11.5-16.0 Blood hematocrit (volume fraction) 37 % 35-52 Automated erythrocyte mean corpuscular volume 82 [foz_us] 80-99 Automated erythrocyte mean corpuscular hemoglobin (mass per erythrocyte) 28 pg 25-34 Automated erythrocyte mean corpuscular hemoglobin concentration measurement ( mass/volume) 34 g/dL 32-36 Automated erythrocyte distribution width ratio 13.3 % 10.0-14.5 Automated blood platelet count (count/volume) 240 10*3/uL 130-400 Automated blood platelet mean volume measurement 10.4 [foz_us] 7.4-10.4 Automated blood neutrophils/100 leukocytes 71 % 42-75 Automated blood lymphocytes/100 leukocytes 18 % 12-44 Blood monocytes/100 leukocytes 10 % 0-12 Automated blood eosinophils/100 leukocytes 1 % 0-10 Automated blood basophils/100 leukocytes 0 % 0-10 Blood neutrophils automated count (number/volume) 5.7 10*3 1.8-7.8 Blood lymphocytes automated count (number/volume) 1.4 10*3 1.0-4.0 Blood monocytes automated count (number/volume) 0.8 10*3 0.0-1.0 Automated eosinophil count 0.1 10*3/uL 0.0-0.3 Automated blood basophil count (count/volume) 0.0 10*3/uL 0.0-0.1 Encounters ACCT No. Visit Date/Time Discharge Status Pt. Type Provider Facility Loc./Unit Complaint [id number] 08/26/2014 10:26:00 08/26/2014 23:59:59 CLS Outpatient KENCRISTOPHERHannah UTE RODRIGUEZ [id number] 07/26/2014 15:46:00 07/26/2014 23:59:59 CLS Outpatient INDIA SHAY DO [id number] 05/31/2014 12:59:00 05/31/2014 23:59:59 CLS Outpatient FREYA MARTINES APRN [id number] 05/26/2014 14:32:00 05/26/2014 23:59:59 CLS Outpatient TYREEHannah UTE RODRIGUEZ [id number] 04/28/2014 09:29:00 04/28/2014 23:59:59 CLS Outpatient TYREEHannah UTE RODRIGUEZ [id number] 04/01/2014 12:36:00 04/01/2014 23:59:59 CLS Outpatient FREYA MARTINES APRN [id number] 03/18/2014 15:10:00 03/18/2014 23:59:59 CLS Outpatient TYREEHannah UTE RODRIGUEZ [id number] 02/26/2014 08:45:00 02/26/2014 23:59:59 CLS Outpatient UTE ORTIZ APRN [id number] 01/19/2014 08:55:00 01/19/2014 23:59:59 CLS Outpatient UTE ORTIZ APRN [id number] 12/22/2013 17:29:00 12/22/2013 23:59:59 CLS Outpatient INDIA SHAY DO Jim [id number] 02/05/2013 15:22:00 02/05/2013 23:59:59 CLS Outpatient PATRICE DIAS MD [id number] 07/08/2012 15:03:00 07/08/2012 23:59:59 CLS Outpatient INDIA SHAY DO Jim [id number] 06/25/2012 13:29:00 06/25/2012 23:59:59 CLS Outpatient INDIA SHAY DO Jim [id number] 06/19/2012 16:07:00 06/19/2012 23:59:59 CLS Outpatient LANDY JENNIFERCHIQUITA [id number] 04/15/2012 16:22:00 04/15/2012 23:59:59 CLS Outpatient LANDY UPNCHIQUITA [id number] 09/16/2012 15:45:00 Document Registration [id number] 09/13/2014 15:38:27 ACT Document Registration [id number] 11/05/2017 15:28:00 11/05/2017 17:15:00 DIS Outpatient MANOJ WOO MD [facility] ER DOG BITE TO LIP [id number] 09/07/2016 15:36:00 09/07/2016 17:14:00 DIS Emergency ELIZABETH CHOW HR INTERNSHIP [facility] ER ABD PAIN [id number] 08/16/2016 15:49:00 08/16/2016 23:59:59 CLS Outpatient DIAN MASTERS HR INTERNSHIP [facility] RAD N30.01 [id number] 05/09/2016 21:37:00 05/09/2016 22:47:00 DIS Emergency MANOJ WOO MD [facility] ER SORE THROAT [id number] 02/05/2016 18:10:00 02/05/2016 20:28:00 DIS Emergency PAUL LEY DO [facility] ER R SIDE/CHEST PAIN/SOB [id number] 02/03/2016 10:03:00 02/03/2016 12:55:00 DIS Emergency FILIBERTO BECKETT [facility] ER CHEST/RIGHT ARM PAIN [id number] 01/24/2015 19:16:00 01/27/2015 12:00:00 DIS Inpatient JAYDE YBARRA MD [facility] LDRP INDUCTION [id number] 09/13/2014 15:37:00 09/13/2014 23:59:59 CLS Outpatient JAYDE YBARRA MD [facility] RAD SURVEY [id number] 03/08/2018 09:41:00 Document Registration [id number] 07/26/2014 10:17:00 Document Registration [id number] 05/22/2012 21:20:00 Document Registration [id number] 11/29/2011 05:41:00 Document Registration [id number] 11/26/2011 09:01:00 Document Registration [id number] 07/28/2010 11:35:00 Document Registration
[2018-03-10] MEDS ORDERED: NS IV 1000 ML 1,000 ML IV ONE (08:15)
[2018-03-10] MEDS ORDERED: ONDANSETRON 4 MG/2 ML (SDV) Z0FRAN IVP ONE (08:15)
[2018-03-10] MEDS ORDERED: KETOROLAC 30 MG/ML VIAL IVP ONE (08:15)
--- NOTE | 2018-03-10 08:33 | ED General ---
General Chief Complaint: Cough/Cold/Flu Symptoms Stated Complaint: VOMITING;FEVER Nursing Triage Note: ARRIVED VIA AMB TO ROOM 06 WEARING A MASK. STATES SHE WAS HERE SAT AND HAD A NEGITIVE FLU AND STREP AND IS NOT BETTER. Nursing Sepsis Screen: No Definite Risk Source of Information: Patient, Old Records Exam Limitations: No Limitations History of Present Illness Date Seen by Provider: Mar 10, 2018 Time Seen by Provider: 08:06 Initial Comments Patient presented to this emergency room a couple days ago with complaints of URI symptoms and diarrhea. She had influenza and strep testing performed at that time, both of which were negative. Final culture results from the original rapid strep screen are not resulted yet. She was discharged home with symptomatic care. She reports symptoms have worsened since then. She has had persistent headache, sore throat, muscle stiffness, especially in the neck, and high fevers that seemed to be refractory to Tylenol and ibuprofen. She has developed vomiting. She has not taken any antipyretics yet today. Headache and sore throat persisted this morning. Allergies and Home Medications Allergies Coded Allergies: No Known Drug Allergies (Unverified , 11/29/11) Home Medications Amoxicillin 500 Mg Capsule, 1,000 MG PO BID Prescribed by: MANOJ QUIROZ on 03/10/18911 Ondansetron 4 Mg Tab.rapdis, 4 MG SL Q4H PRN for NAUSEA/VOMITING-1ST LINE Prescribed by: MANOJ QUIROZ on 03/10/18911 Patient Home Medication List Home Medication List Reviewed: Yes Review of Systems Review of Systems Constitutional: see HPI EENTM: see HPI Respiratory: no symptoms reported Cardiovascular: no symptoms reported Gastrointestinal: see HPI Genitourinary: no symptoms reported : No Musculoskeletal: see HPI Skin: no symptoms reported Psychiatric/Neurological: See HPI Hematologic/Lymphatic: No Symptoms Reported Immunological/Allergic: no symptoms reported Past Dhgjrmi-Dqgtgq-Estkdm Hx Past Med/Social Hx: Reviewed and Corrections made Patient Social History Alcohol Use: Occasionally Uses Recreational Drug Use: No Smoking Status: Current Everyday Smoker Type Used: Cigarettes 2nd Hand Smoke Exposure: Yes Recent Foreign Travel: No Contact w/Someone Who Travel: No Recent Infectious Disease Expo: No Recent Hopitalizations: No Immunizations Up To Date Tetanus Booster (TDap): Unknown Date of Influenza Vaccine: Feb 11, 2012 Seasonal Allergies Seasonal Allergies: No Past Medical History Surgeries: Yes (BMT'S; EAR DRUM REPAIR, UMBILICAL HERNIA; REMOVAL OF PLANTAR WARTS) Abdominal (umbilical hernia), Ear Surgery Respiratory: Yes Asthma Cardiac: No Neurological: No : No 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 Disorders: Yes Female 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 Disorders: Denies, Polycystic Ovarian Dis [employer]AR[employer] AND [employer] History: IUD Sexually Transmitted Disease: No Gastrointestinal: No Musculoskeletal: No Endocrine: No HEENT: Yes Chronic Ear Infection Cancer: No Psychosocial: Yes Depression Integumentary: No Blood Disorders: No Adverse Reaction/Blood Tranf: No Family Medical History Reviewed Nursing Family Hx Autism (Brothers) Diabetes mellitus (Father) FH: Down syndrome (Brother) FH: breast cancer (Maternal side) FH: stroke Heart murmur (Brother) Myocardial infarction (Grandfather) Physical Exam Vital Signs Vital Signs - First Documented 03/10/18 08:03 Temp 98.0 Pulse 105 Resp 16 B/P (MAP) 133/76 (95) Pulse Ox 97 O2 Delivery Room Air Capillary Refill : Less Than 3 Seconds Height, Weight, BMI Height: 5'1.00" Weight: 215lbs. oz. 97.771176xt; 35.15 BMI Method:Stated General Appearance: WD/WN, Mild Distress, Obese HEENT: PERRL/EOMI, Normal ENT Inspection, Pharyngeal Erythema, TM Abnormal (L) (retracted), TM Abnormal (R) (retracted), Tonsillar Enlargement Neck: Normal Inspection, Supple, Other (no nuchal rigidity, negative Kernig's test) Respiratory: Lungs Clear, Normal Breath Sounds, No Accessory Muscle Use, No Respiratory Distress Cardiovascular: Regular Rate, Rhythm, No Edema, No Murmur Gastrointestinal: Non Tender, Soft Extremity: Normal Inspection, No Pedal Edema Neurologic/Psychiatric: Alert, Oriented x3, No Motor/Sensory Deficits, Normal Mood/Affect, diver helper II-XII Norm as Tested Skin: Normal Color, Warm/Dry Progress/Results/Core Measures Suspected Sepsis Recent Fever Within 48 Hours: No Infection Criteria Present: Suspected New Infection New/Unexplained Altered Menta: No Sepsis Screen: No Definite Risk SIRS Temperature:98.0 Pulse: 105 Respiratory Rate: 16 Laboratory Tests 03/10/18 08:25: White Blood Count 10.4 Blood Pressure 133 /76 Mean: 95 Laboratory Tests 03/10/18 08:25: Creatinine 0.76, Platelet Count 237, Total Bilirubin 0.3 Results/Orders Lab Results Laboratory Tests Test 03/10/18 08:13 03/10/18 08:25 Range/Units Group A Streptococcus Screen NEGATIVE NEGATIVE White Blood Count 10.4 4.3-11.0 10^3/uL Red Blood Count 4.15 L 4.35-5.85 10^6/uL Hemoglobin 11.3 L 11.5-16.0 G/DL Hematocrit 35 35-52 % Mean Corpuscular Volume 83 80-99 FL Mean Corpuscular Hemoglobin 27 25-34 PG Mean Corpuscular Hemoglobin Concent 33 32-36 G/DL Red Cell Distribution Width 13.6 10.0-14.5 % Platelet Count 237 130-400 10^3/uL Mean Platelet Volume 10.2 7.4-10.4 FL Neutrophils (%) (Auto) 67 42-75 % Lymphocytes (%) (Auto) 21 12-44 % Monocytes (%) (Auto) 11 0-12 % Eosinophils (%) (Auto) 1 0-10 % Basophils (%) (Auto) 0 0-10 % Neutrophils # (Auto) 7.0 1.8-7.8 X 10^3 Lymphocytes # (Auto) 2.2 1.0-4.0 X 10^3 Monocytes # (Auto) 1.1 H 0.0-1.0 X 10^3 Eosinophils # (Auto) 0.1 0.0-0.3 10^3/uL Basophils # (Auto) 0.0 0.0-0.1 10^3/uL Sodium Level 137 135-145 MMOL/L Potassium Level 3.9 3.6-5.0 MMOL/L Chloride Level 105 98-107 MMOL/L Carbon Dioxide Level 23 21-32 MMOL/L Anion Gap 9 5-14 MMOL/L Blood Urea Nitrogen 9 7-18 MG/DL Creatinine 0.76 0.60-1.30 MG/DL Estimat Glomerular Filtration Rate > 60 BUN/Creatinine Ratio 12 Glucose Level 107 H 70-105 MG/DL Calcium Level 9.2 8.5-10.1 MG/DL Corrected Calcium 9.2 8.5-10.1 MG/DL Total Bilirubin 0.3 0.1-1.0 MG/DL Aspartate Amino Transf (AST/SGOT) 11 5-34 U/L Alanine Aminotransferase (ALT/SGPT) 15 0-55 U/L Alkaline Phosphatase 73 40-136 U/L C-Reactive Protein High Sensitivity 16.54 H 0.00-0.50 MG/DL Total Protein 7.2 6.4-8.2 GM/DL Albumin 4.0 3.2-4.5 GM/DL Serum Test, Qualitative NEGATIVE NEGATIVE Monoscreen NEGATIVE NEGATIVE My Orders Orders - MANOJ WOO MD Cbc With Automated Diff (03/10/18 08:15) Comprehensive Metabolic Panel (03/10/18 08:15) Hs C Reactive Protein (03/10/18 08:15) Hcg,Qualitative Serum (03/10/18 08:15) Rapid Strep A Screen (03/10/18 08:15) Saline Lock/Iv-Start (03/10/18 08:15) Ns Iv 1000 Ml (Sodium Chloride 0.9%) (03/10/18 08:15) Ketorolac Injection (Toradol Injection) (03/10/18 08:15) Ondansetron Injection (Zofran Injectio (03/10/18 08:15) Monotest (03/10/18 08:17) Ceftriaxone For Iv Use (Rocephin For I (03/10/18 09:00) Medications Given in ED Current Medications Medications Dose Ordered Sig/Jose Route Start Time Stop Time Status Last Admin Dose Admin Ceftriaxone Sodium 1000 mg/ Sodium Chloride 50 ml @ 100 mls/hr ONCE ONCE IV 03/10/18 09:00 03/10/18 09:29 03/10/18 09:11 100 MLS/HR Ketorolac Tromethamine 15 mg ONCE ONCE IVP 03/10/18 08:15 03/10/18 08:17 DC 03/10/18 08:25 15 MG Ondansetron HCl 8 mg ONCE ONCE IVP 03/10/18 08:15 03/10/18 08:17 DC 03/10/18 08:25 8 MG Sodium Chloride 1,000 ml @ 0 mls/hr Q0M ONCE IV 03/10/18 08:15 03/10/18 08:17 DC 03/10/18 08:26 1,000 MLS/HR Vital Signs/I&O 03/10/18 08:03 Temp 98.0 Pulse 105 Resp 16 B/P (MAP) 133/76 (95) Pulse Ox 97 O2 Delivery Room Air Capillary Refill : Less Than 3 Seconds Blood Pressure Mean: 95 Progress Note #1: Time: 08:32 Progress Note Throat looks suspicious for mono or strep. A repeat rapid strep is being performed. Patient is tachycardic without fever. IV fluids will be initiated along with Toradol and Zofran for symptom management. Labs pending. Progress Note #2: Time: 09:17 Progress Note Patient is feeling significantly better after treatment. Given the appearance of her throat and elevated CRP, treatment with Rocephin was felt appropriate. She is being discharged with prescriptions and return precautions. Departure Impression Primary Impression: Pharyngitis Qualified Codes: J02.9 - Acute pharyngitis, unspecified Additional Impressions: Flu-like symptoms Nausea and vomiting Qualified Codes: R11.2 - Nausea with vomiting, unspecified Disposition: 01 HOME, SELF-CARE Condition: Improved Departure-Patient Inst. Decision time for Depature: 09:04 Referrals: [facility] (PCP/Family) Primary Care Physician Patient Instructions: Sore Throat in Adults Add. Discharge Instructions: Drink plenty of clear liquids. Gradually advance your diet with small quantities of bland food as tolerated. Uses Zofran (ondansetron) dissolved under your tongue every 4 hours as needed for nausea and vomiting. Take ibuprofen up to 600 mg every 6 hours as needed for pain or fever. Add Tylenol (acetaminophen) up to 1000 mg every 6 hours as needed for additional pain or fever relief. Return to care if you have worsening symptoms. Complete your antibiotic as prescribed. Dispose of toothbrush and any other oral instruments about mcfp through your antibiotic treatment so as to prevent reinfecting yourself. All discharge instructions reviewed with patient and/or family. Voiced understanding. Scripts Ondansetron (Zofran Odt) 4 Mg Tab.rapdis 4 MG SL Q4H PRN for NAUSEA/VOMITING-1ST LINE, #10 TAB Prov: MANOJ WOO MD 03/10/18 Amoxicillin (Amoxicillin) 500 Mg Capsule 1000 MG PO BID, #28 CAP Prov: MANOJ WOO MD 03/10/18 MANOJ WOO MD Mar 10, 2018 08:33
[2018-03-10 08:34] LABS: BASOPHILS % (AUTO) 0 % (0-10); EOSINOPHILS # (AUTO) 0.1 10^3/uL (0.0-0.3); EOSINOPHILS % (AUTO) 1 % (0-10); HEMATOCRIT 35 % (35-52); HEMOGLOBIN 11.3 G/DL (11.5-16.0); LYMPHOCYTES # (AUTO) 2.2 X 10^3 (1.0-4.0); LYMPHOCYTES % (AUTO) 21 % (12-44); MEAN CORPUSCULAR HEMOGLOBIN 27 PG (25-34); MEAN CORPUSCULAR HGB CONC 33 G/DL (32-36); MEAN CORPUSCULAR VOLUME 83 FL (80-99); MEAN PLATELET VOLUME 10.2 FL (7.4-10.4); MONOCYTES # (AUTO) 1.1 X 10^3 (0.0-1.0); MONOCYTES % (AUTO) 11 % (0-12); NEUTROPHILS % (AUTO) 67 % (42-75); PLATELET COUNT 237 10^3/uL (130-400); RED BLOOD COUNT 4.15 10^6/uL (4.35-5.85); RED CELL DISTRIBUTION WIDTH 13.6 % (10.0-14.5); WHITE BLOOD COUNT 10.4 10^3/uL (4.3-11.0)
[2018-03-10 08:59] LABS: ALANINE AMINOTRANSFERASE 15 U/L (0-55); ALKALINE PHOSPHATASE 73 U/L (40-136); BILIRUBIN,TOTAL 0.3 MG/DL (0.1-1.0); BUN/CREATININE RATIO 12; CALCIUM 9.2 MG/DL (8.5-10.1); CARBON DIOXIDE 23 MMOL/L (21-32); CHLORIDE 105 MMOL/L (98-107); CREATININE SERUM 0.76 MG/DL (0.60-1.30); GFR ESTIMATED > 60; GLUCOSE 107 MG/DL (70-105); POTASSIUM 3.9 MMOL/L (3.6-5.0); SODIUM 137 MMOL/L (135-145); TOTAL PROTEIN 7.2 GM/DL (6.4-8.2)
[2018-03-10] MEDS ORDERED: cefTRIAXone FOR IV USE 1,000 MG in NS (IVPB) 50 ML IV ONE (09:00)
[2018-03-10] MEDS ORDERED: ONDA4TAB8 SL (09:12)
[2018-03-10] MEDS ORDERED: AMOX500C2 PO (09:12)
[2018-03-10 09:39] VITALS: BP 106/58
== END 2018-03-10 09:39 | disposition home or self-care (01) ==
LOC: EDUNIT# 07:57 → ER 07:58
DX: J02.9 Acute pharyngitis, unspecified (principal); J10.1 Influenza due to other identified influenza virus with other respiratory manifestations; R11.2 Nausea with vomiting, unspecified; J45.909 Unspecified asthma, uncomplicated; F32.9 Major depressive disorder, single episode, unspecified; F17.210 Nicotine dependence, cigarettes, uncomplicated; Z97.5 Presence of (intrauterine) contraceptive device; Z87.448 Personal history of other diseases of urinary system; Z98.890 Other specified postprocedural states; Z87.19 Personal history of other diseases of the digestive system
CPT/HCPCS: 36415; 80053; 84703; 85025; 86141; 86308; 87430; 96361; 96365; 96375

== ENCOUNTER 2020-01-30 23:11 | Emergency (ER) | payer MEDICAID ==
[~2020-01-30] VITALS: Ht 155 cm; Wt 93.0 kg
[~2020-01-30 23:11] MED LIST changes: +ONDA4TAB8 SL
[2020-01-30] MEDS ORDERED: LACTATED RINGERS 1,000 ML IV ONE (23:53)
--- NOTE | 2020-01-30 23:59 | ED Abdominal Pain ---
General Chief Complaint: Abdominal/GI Problems Stated Complaint: RLQ PAIN, CHILLS Nursing Triage Note: right sided throbbing abdominal pain since 10am. no treatment. Sepsis Screen: No Definite Risk Source of Information: Patient Exam Limitations: No Limitations History of Present Illness Date Seen by Provider: Jan 30, 2020 Time Seen by Provider: 23:34 Initial Comments Patient presents to the ER by private conveyance from home with chief complaint of right lower quadrant pulsating/throbbing abdominal pain. Radiating to her right upper quadrant as well. She's not had any abdominal surgeries. The pain started about 10:00 this morning. She had fried eggs for breakfast. No previous abdominal workup. She is a not today per bedside test. No dysuria, discharge or hematuria. No nausea or vomiting but she had some nausea earlier. She did not take anything for pain at home stating she does not have anything to take. She does not routinely follow with a doctor. Allergies and Home Medications Allergies Coded Allergies: No Known Drug Allergies (Unverified , 11/29/11) Home Medications Amoxicillin 500 Mg Capsule, 1,000 MG PO BID Prescribed by: MANOJ QUIROZ on 03/10/18911 Ondansetron 4 Mg Tab.rapdis, 4 MG SL Q4H PRN for NAUSEA/VOMITING-1ST LINE Prescribed by: MANOJ QUIROZ on 03/10/18911 Patient Home Medication List Home Medication List Reviewed: Yes Review of Systems Review of Systems Constitutional: No chills, No fever, No malaise EENTM: No Blurred Vision, No Double Vision Respiratory: Denies Cough, Denies Shortness of Air Cardiovascular: Denies Chest Pain, Denies Lightheadedness Gastrointestinal: See HPI, Abdominal Pain; Denies Constipated, Denies Diarrhea; Nausea, Poor Fluid Intake; Denies Vomiting Genitourinary: Denies Burning, Denies Discharge Musculoskeletal: No back pain, No joint pain All Other Systems Reviewed Negative Unless Noted: Yes Past Jiilibr-Uybdns-Lhooue Hx Patient Social History Alcohol Use: Denies Use Recreational Drug Use: Yes Drug of Choice: cannibus Smoking Status: Current Everyday Smoker Type Used: Cigarettes 2nd Hand Smoke Exposure: Yes Recent Foreign Travel: No Contact w/Someone Who Travel: No Recent Infectious Disease Expo: No Recent Hopitalizations: No Physical Abuse: No Sexual Abuse: No Mistreated: No Fear: No Immunizations Up To Date Tetanus Booster (TDap): Unknown Date of Influenza Vaccine: Feb 11, 2012 Seasonal Allergies Seasonal Allergies: No Past Medical History Surgeries: Yes (BMT'S; EAR DRUM REPAIR, UMBILICAL HERNIA; REMOVAL OF PLANTAR WARTS) Abdominal, Ear Surgery Respiratory: Yes Asthma Cardiac: No Neurological: No : No 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 Disorders: Yes Female 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 Disorders: Denies, Polycystic Ovarian Dis 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 Sexually Transmitted Disease: No Genitourinary: No Gastrointestinal: No Musculoskeletal: No Endocrine: No HEENT: Yes Chronic Ear Infection Cancer: No Psychosocial: Yes Depression Integumentary: No Blood Disorders: No Adverse Reaction/Blood Tranf: No Family Medical History Autism (Brothers) Diabetes mellitus (Father) FH: Down syndrome (Brother) FH: breast cancer (Maternal side) FH: stroke Heart murmur (Brother) Myocardial infarction (Grandfather) Physical Exam Vital Signs Vital Signs - First Documented 01/30/20 23:33 Temp 37.3 Pulse 129 Resp 18 B/P (MAP) 122/63 (82) Pulse Ox 98 O2 Delivery Room Air Capillary Refill : Less Than 3 Seconds Height/Weight/BMI Height: 5'1.00" Weight: 215lbs. oz. 97.432290pv; 38.00 BMI Method:Stated General Appearance: WD/WN, mild distress HEENT: PERRL/EOMI, pharynx normal Respiratory: no respiratory distress, no accessory muscle use Cardiovascular: normal peripheral pulses, regular rate, rhythm, no edema, tachycardia Peripheral Pulses: 2+ Radial Pulses (R), 2+ Radial Pulses (L) Gastrointestinal: normal bowel sounds, guarding, tenderness (moderate right upper quadrant tenderness without Jackson sign. Right lower quadrant pain reliev ed by direct pressure and worsened by rebound.), other (negative for Rovsing sign but positive for right psoas sign) Extremities: normal range of motion, non-tender, normal capillary refill Neurologic/Psychiatric: alert, normal mood/affect, oriented x 3 Skin: normal color, warm/dry Progress/Results/Core Measures Results/Orders Lab Results Laboratory Tests Test 01/30/20 22:35 01/30/20 23:58 Range/Units Urine Color YELLOW Urine Clarity CLEAR Urine pH 8.0 5-9 Urine Specific [place] 1.015 L 1.016-1.022 Urine Protein TRACE H NEGATIVE Urine Glucose (UA) NEGATIVE NEGATIVE Urine Ketones NEGATIVE NEGATIVE Urine Nitrite NEGATIVE NEGATIVE Urine Bilirubin NEGATIVE NEGATIVE Urine Urobilinogen 0.2 < = 1.0 MG/DL Urine Leukocyte Esterase 3+ H NEGATIVE Urine RBC (Auto) TRACE-I NEGATIVE Urine RBC NONE /HPF Urine WBC >100 H /HPF Urine Squamous Epithelial Cells 5-10 /HPF Urine Crystals NONE /LPF Urine Bacteria TRACE /HPF Urine Casts NONE /LPF Urine Mucus MODERATE H /LPF Urine Trichomonas LARGE H /HPF Urine Culture Indicated NO White Blood Count 13.0 H 4.3-11.0 10^3/uL Red Blood Count 4.39 4.35-5.85 10^6/uL Hemoglobin 11.9 11.5-16.0 G/DL Hematocrit 35 35-52 % Mean Corpuscular Volume 81 80-99 FL Mean Corpuscular Hemoglobin 27 25-34 PG Mean Corpuscular Hemoglobin Concent 34 32-36 G/DL Red Cell Distribution Width 13.9 10.0-14.5 % Platelet Count 276 130-400 10^3/uL Mean Platelet Volume 10.0 7.4-10.4 FL Neutrophils (%) (Auto) 80 H 42-75 % Lymphocytes (%) (Auto) 9 L 12-44 % Monocytes (%) (Auto) 9 0-12 % Eosinophils (%) (Auto) 2 0-10 % Basophils (%) (Auto) 0 0-10 % Neutrophils # (Auto) 10.4 H 1.8-7.8 X 10^3 Lymphocytes # (Auto) 1.2 1.0-4.0 X 10^3 Monocytes # (Auto) 1.2 H 0.0-1.0 X 10^3 Eosinophils # (Auto) 0.2 0.0-0.3 10^3/uL Basophils # (Auto) 0.0 0.0-0.1 10^3/uL Sodium Level 135 135-145 MMOL/L Potassium Level 3.7 3.6-5.0 MMOL/L Chloride Level 103 98-107 MMOL/L Carbon Dioxide Level 22 21-32 MMOL/L Anion Gap 10 5-14 MMOL/L Blood Urea Nitrogen 9 7-18 MG/DL Creatinine 0.80 0.60-1.30 MG/DL Estimat Glomerular Filtration Rate > 60 BUN/Creatinine Ratio 11 Glucose Level 105 70-105 MG/DL Calcium Level 9.1 8.5-10.1 MG/DL Corrected Calcium 9.1 8.5-10.1 MG/DL Total Bilirubin 0.5 0.1-1.0 MG/DL Aspartate Amino Transf (AST/SGOT) 12 5-34 U/L Alanine Aminotransferase (ALT/SGPT) 23 0-55 U/L Alkaline Phosphatase 80 40-136 U/L Total Protein 7.1 6.4-8.2 GM/DL Albumin 4.0 3.2-4.5 GM/DL My Orders Orders - VINCENT JOHNSON Ua Culture If Indicated (01/30/20 23:17) Urine Bedside (01/30/20 23:17) Cbc With Automated Diff (01/30/20 23:53) Comprehensive Metabolic Panel (01/30/20 23:53) Ketorolac Injection (Toradol Injection) (01/31/20 00:00) Ed Iv/Invasive Line Start (01/30/20 23:53) Lactated Ringers (Lr 1000 Ml Iv Solution (01/30/20 23:53) Ct Abd/Pelv W (Appendicitis) (01/31/20 00:01) Medications Given in ED Current Medications Medications Dose Ordered Sig/Jose Route Start Time Stop Time Status Last Admin Dose Admin Iohexol 100 ml ONCE ONCE IV 01/31/20 00:45 01/31/20 00:55 DC 01/31/20 00:43 100 ML Ketorolac Tromethamine 30 mg ONCE ONCE IVP 01/31/20 00:00 01/31/20 00:01 DC 01/31/20 00:02 30 MG Lactated Ringer's 1,000 ml @ 0 mls/hr Q0M ONCE IV 01/30/20 23:53 01/30/20 23:57 DC 01/31/20 00:01 0 MLS/HR Sodium Chloride 80 ml ONCE ONCE IV 01/31/20 00:45 01/31/20 00:55 DC 01/31/20 00:43 80 ML Vital Signs/I&O 01/30/20 01/31/20 23:33 00:02 Temp 37.3 37.3 Pulse 129 Resp 18 B/P (MAP) 122/63 (82) Pulse Ox 98 O2 Delivery Room Air Blood Pressure Mean: 82 Progress Progress Note : Time: 23:58 Progress Note The patient has a concerning abdominal exam so were negative CT of her abdomen pelvis to rule out appendicitis as well as less likely cholecystitis. We'll get labs and a urinalysis. Liter of lactated Ringer's and Toradol for her pain. She's not having any nausea at this time. Diagnostic Imaging Diagonstic Imaging: CT Plain Films/CT/US/NM/MRI: abdomen, pelvis Reviewed: Reviewed by Me Departure Impression Primary Impression: Pyelonephritis Additional Impression: Adrenal adenoma Qualified Codes: D35.02 - Benign neoplasm of left adrenal gland Disposition: HOME, SELF-CARE Condition: Stable Departure-Patient Inst. Decision time for Depature: 01:25 Referrals: [facility] (PCP/Family) Primary Care Physician Patient Instructions: Kidney Infection (DC) Add. Discharge Instructions: You have an infection in your kidney. Drink lots of fluids to help flush it out. Cefdinir 1 capsule twice daily for the next 7 days. Tylenol 1000 mg every 8 hours as necessary for pain. Ibuprofen 800 mg every 8 hours as necessary for pain. Heating pads can be helpful. In the next month you can follow-up with your primary care doctor to discuss further appropriate imaging of your left adrenal tumor as mentioned on today's CT scan. All discharge instructions reviewed with patient and/or family. Voiced understanding. Scripts Cefdinir (Cefdinir) 300 Mg Capsule 300 MG PO BID, #14 CAP 0 Refills Prov: VINCENT JOHNSON 01/31/20 Copy Copies To 1: INDIA SHAY DO VINCENT JOHNSON Jan 30, 2020 23:58
[2020-01-31] MEDS ORDERED: KETOROLAC 30 MG/ML VIAL IVP ONE
[2020-01-31 00:11] LABS: BILIRUBIN,URINE NEGATIVE (NEGATIVE); CLARITY,URINE CLEAR; COLOR,URINE YELLOW; GLUCOSE, URINE (UA) NEGATIVE (NEGATIVE); KETONES,URINE NEGATIVE (NEGATIVE); LEUKOCYTE ESTERASE ,URINE 3+ (NEGATIVE); NITRITE,URINE NEGATIVE (NEGATIVE); PROTEIN,URINE TRACE (NEGATIVE)
[2020-01-31 00:11] LABS: BASOPHILS % (AUTO) 0 % (0-10); EOSINOPHILS # (AUTO) 0.2 10^3/uL (0.0-0.3); EOSINOPHILS % (AUTO) 2 % (0-10); HEMATOCRIT 35 % (35-52); HEMOGLOBIN 11.9 G/DL (11.5-16.0); LYMPHOCYTES # (AUTO) 1.2 X 10^3 (1.0-4.0); LYMPHOCYTES % (AUTO) 9 % (12-44); MEAN CORPUSCULAR HEMOGLOBIN 27 PG (25-34); MEAN CORPUSCULAR HGB CONC 34 G/DL (32-36); MEAN CORPUSCULAR VOLUME 81 FL (80-99); MONOCYTES # (AUTO) 1.2 X 10^3 (0.0-1.0); MONOCYTES % (AUTO) 9 % (0-12); NEUTROPHILS # (AUTO) 10.4 X 10^3 (1.8-7.8); NEUTROPHILS % (AUTO) 80 % (42-75); PLATELET COUNT 276 10^3/uL (130-400)
[2020-01-31 00:18] LABS: CHLORIDE 103 MMOL/L (98-107); POTASSIUM 3.7 MMOL/L (3.6-5.0); SODIUM 135 MMOL/L (135-145)
[2020-01-31 00:19] LABS: CALCIUM 9.1 MG/DL (8.5-10.1)
[2020-01-31 00:20] LABS: GLUCOSE 105 MG/DL (70-105); TOTAL PROTEIN 7.1 GM/DL (6.4-8.2)
[2020-01-31 00:20] LABS: BACTERIA,URINE TRACE /HPF; TRICHOMONAS,URINE LARGE /HPF; WBC,URINE >100 /HPF
[2020-01-31 00:21] LABS: CARBON DIOXIDE 22 MMOL/L (21-32)
[2020-01-31 00:22] LABS: BILIRUBIN,TOTAL 0.5 MG/DL (0.1-1.0)
[2020-01-31 00:24] LABS: ALKALINE PHOSPHATASE 80 U/L (40-136); GFR ESTIMATED > 60
[2020-01-31 00:25] LABS: BUN/CREATININE RATIO 11
[2020-01-31 00:27] LABS: ALANINE AMINOTRANSFERASE 23 U/L (0-55)
[2020-01-31] MEDS ORDERED: IOHEXOL 350 MG/ML 100 ML (OMNIPAQUE 350) VIAL IV ONE (00:45)
[2020-01-31] MEDS ORDERED: NS 100 ML (IVPB) BAG IV ONE (00:45)
[2020-01-31] MEDS ORDERED: CEFD300C3 PO (01:28)
[2020-01-31] MEDS ORDERED: cefTRIAXone FOR IV USE 1,000 MG in WATER (STERILE) FOR INJECTION 10 ML IV ONE (01:30)
[2020-01-31 01:35] VITALS: BP 120/74
--- NOTE | 2020-01-31 07:10 | Diagnostic Imaging Report ---
PROCEDURE: CT abdomen and pelvis with contrast, rule out appendicitis. TECHNIQUE: Multiple contiguous axial images were obtained through the abdomen and pelvis after the administration of intravenous contrast. All CT scans use one or more of the following dose optimizing techniques: automated exposure control, MA and/or KvP adjustment based on patient size and exam type or iterative reconstruction. INDICATION: Right lower quadrant pain, chills. CORRELATION STUDY: 09/07/2016 FINDINGS: LOWER THORAX: Clear. LIVER: Mildly enlarged. Slight asymmetric fatty infiltration along the falciform ligament. GALLBLADDER: Contracted. No bile duct dilatation. SPLEEN: Borderline enlarged. PANCREAS: Unremarkable. ADRENAL GLANDS: Left adrenal gland mass has increased in size, currently 4.1 x 2.8 cm, previously 2.9 x 1.7 cm. Hounsfield units on the current study is 25, previously measured at 14. Right adrenal gland unremarkable. KIDNEYS: Asymmetric distention and enhancement with questionable subtle periureteral fat stranding of the right ureter. This extends from the renal pelvis through the lumbosacral junction. No definitive ureteric calcification. ABDOMINAL AORTA: Unremarkable, nonaneurysmal. GASTROINTESTINAL TRACT: No obstruction or inflammation. Normal appendix. URINARY BLADDER: Unremarkable. REPRODUCTIVE: An IUD is noted to be in the lower uterine segment, protruding into the cervix and angulated. Endometrial canal is prominent. Probable small left ovarian cyst. OSSEOUS STRUCTURES: No acute abnormality. OTHER: None. IMPRESSION: 1. Asymmetric distention and enhancement with question periureteral fat stranding. This could include recent passage of ureteral stone versus urinary tract infection of the right urothelium. 2. The intrauterine contraceptive device is malpositioned in the lower uterine segment extending into the cervix and abnormally angulated. 3. Slight increase in size of a left adrenal gland mass. Enhancement characteristics are also slightly changed. This may be reflective of a adenoma, however, does warrant additional evaluation with preferably dedicated adrenal MRI or multiphase CT imaging protocol for adrenal gland masses. Initial report was provided by [facility]. Dictated by: Dictated on workstation # [id number]
== END 2020-01-31 01:35 | disposition home or self-care (01) ==
LOC: EDUNIT# 23:11 → ER 23:12
DX: N12 Tubulo-interstitial nephritis, not specified as acute or chronic (principal); D35.01 Benign neoplasm of right adrenal gland; F17.210 Nicotine dependence, cigarettes, uncomplicated; Z80.3 Family history of malignant neoplasm of breast; Z82.49 Family history of ischemic heart disease and other diseases of the circulatory system
CPT/HCPCS: 36415; 74177; 80053; 81000; 84703; 85025

== ENCOUNTER 2020-11-07 20:10 | Outpatient (CLI) | payer MEDICAID ==
[~2020-11-07] VITALS: Ht 154.9 cm; Wt 103.0 kg
[~2020-11-07 20:10] MED LIST changes: +CEFD300C3 PO; +DOXY-311 PO; -DOXY100C42 PO
[2020-11-07 21:00] VITALS: BP_SYST 106; BP_DIAS 55; BP_DIAS 59
[2020-11-07 21:01] LABS: BILIRUBIN,URINE NEGATIVE (NEGATIVE); CLARITY,URINE CLEAR; COLOR,URINE YELLOW; GLUCOSE, URINE (UA) NEGATIVE (NEGATIVE); KETONES,URINE NEGATIVE (NEGATIVE); LEUKOCYTE ESTERASE ,URINE 1+ (NEGATIVE); NITRITE,URINE NEGATIVE (NEGATIVE); PH,URINE 6.5 (5-9); PROTEIN,URINE NEGATIVE (NEGATIVE)
[2020-11-07 21:25] LABS: AMORPHOUS SEDIMENT,UR FEW AMOR URATES /LPF; BACTERIA,URINE MODERATE /HPF
[2020-11-07] MEDS ORDERED: CEPHALEXIN 250 MG (KEFLEX) CAP PO ONE (21:45)
[2020-11-07] MEDS ORDERED: CEPH500T PO (22:01)
--- NOTE | 2020-11-08 07:41 | Physician Query-Final Dx ---
RAF CRUZ 11/08/20 0741: Clinic Account Progress/Dx Physician Query: Please give diagnosis Please include # weeks gestation Date of Service Nov 07, 2020 at 20:10 EFRAÍN MORA MD 11/08/20 2218: Clinic Account Progress/Dx DIAGNOSIS: Diagnosis Second Trimester 20 week gestation Leaking fluid RAF CRUZ Nov 08, 2020 07:41 EFRAÍN MORA MD Nov 08, 2020 22:18
== END 2020-11-07 22:25 ==
LOC: LDRP 20:10 → WSo 20:10
PROVIDERS: ATTEND Family Medicine
DX: O42.912 Preterm premature rupture of membranes, unspecified as to length of time between rupture and onset of labor, second trimester (principal); Z3A.20 20 weeks gestation of pregnancy
CPT/HCPCS: 81000; 87088; G0463; 99214

== ENCOUNTER 2021-02-13 10:47 | Outpatient (CLI) | payer MEDICAID ==
[~2021-02-13] VITALS: Ht 154.9 cm; Wt 112.1 kg
[2021-02-13 10:30] VITALS: BP 122/57
[~2021-02-13 10:47] MED LIST changes: +CEPH500T PO
[2021-02-13 11:00] VITALS: BP 122/57
[2021-02-13 11:07] LABS: BILIRUBIN,URINE NEGATIVE (NEGATIVE); CLARITY,URINE CLEAR; COLOR,URINE YELLOW; GLUCOSE, URINE (UA) NEGATIVE (NEGATIVE); KETONES,URINE NEGATIVE (NEGATIVE); LEUKOCYTE ESTERASE ,URINE 2+ (NEGATIVE); NITRITE,URINE NEGATIVE (NEGATIVE); PROTEIN,URINE TRACE (NEGATIVE)
[2021-02-13 11:15] LABS: AMORPHOUS SEDIMENT,UR FEW AMOR URATES /LPF; BACTERIA,URINE FEW /HPF; CALCIUM OXALATE CRYSTALS,UR FEW /LPF
--- NOTE | 2021-02-14 08:14 | Physician Query-Final Dx ---
RAF CRUZ 02/14/21 0814: Clinic Account Progress/Dx Physician Query: Please give diagnosis Please include # weeks gestation Date of Service Feb 13, 2021 at 10:47 JAYDE YBARRA MD 02/15/21 0708: Clinic Account Progress/Dx DIAGNOSIS: Diagnosis 1. Intrauterine and third trimester 2. Uterine irritability without labor RAF CRUZ Feb 14, 2021 08:14 JAYDE YBARRA MD Feb 15, 2021 07:08
== END 2021-02-13 11:20 | disposition home or self-care (01) ==
LOC: WSo 10:47 → LDRP 10:50 → WSo 11:20
PROVIDERS: ATTEND Family Medicine
DX: O62.9 Abnormality of forces of labor, unspecified (principal); Z3A.36 36 weeks gestation of pregnancy
CPT/HCPCS: 81000; 87088; G0463; 99213

== ENCOUNTER 2021-03-05 13:03 | Outpatient (CLI) | payer MEDICAID ==
[~2021-03-05] VITALS: Ht 154.9 cm; Wt 115.7 kg
[2021-03-05 13:18] VITALS: BP 122/73
[2021-03-05 13:22] LABS: BILIRUBIN,URINE NEGATIVE (NEGATIVE); CLARITY,URINE CLOUDY; COLOR,URINE YELLOW; GLUCOSE, URINE (UA) NEGATIVE (NEGATIVE); KETONES,URINE NEGATIVE (NEGATIVE); LEUKOCYTE ESTERASE ,URINE 2+ (NEGATIVE); NITRITE,URINE NEGATIVE (NEGATIVE); PH,URINE 7.5 (5-9); PROTEIN,URINE NEGATIVE (NEGATIVE)
[2021-03-05 13:51] LABS: AMORPHOUS SEDIMENT,UR LARGE AMOR PHOSPHATE /LPF; BACTERIA,URINE FEW /HPF
[2021-03-05] MEDS ORDERED: hydrOXYzine (VISTARIL/ATARAX) 25 MG capsule/tablet PO ONE (14:00)
[2021-03-05 16:05] VITALS: BP 129/68
--- NOTE | 2021-03-06 08:17 | Physician Query-Final Dx ---
RAF CRUZ 03/06/21 0817: Clinic Account Progress/Dx Physician Query: Please give diagnosis Please include # weeks gestation Date of Service Mar 05, 2021 at 13:03 EFRAÍN MORA MD 03/07/21 2137: Clinic Account Progress/Dx DIAGNOSIS: Diagnosis Third Trimester 37 week gestation abdominal pain in RAF CRUZ Mar 06, 2021 08:17 EFRAÍN MORA MD Mar 07, 2021 21:37
== END 2021-03-05 16:30 ==
LOC: WSo 13:03 → LDRP 13:04 → WSo 16:30
PROVIDERS: ATTEND Family Medicine
DX: O62.9 Abnormality of forces of labor, unspecified (principal); Z3A.37 37 weeks gestation of pregnancy
CPT/HCPCS: 81000; 87088; 99213

== ENCOUNTER 2021-03-15 06:00 | Inpatient (IN) | payer MEDICAID ==
[~2021-03-15] VITALS: Ht 154.9 cm; Wt 115.0 kg
[2021-03-15] VITALS (70 sets, daily range): BP systolic 101–163; BP diastolic 51–845
[2021-03-15] MEDS ORDERED: OXYTOCIN PRE-MIX DRIP 500 ML IV SCH (06:15)
[2021-03-15] MEDS ORDERED: MINERAL OIL CONCENTRATE 99.9% 15 ML UDC TOP PRN (06:15)
[2021-03-15 06:49] LABS: BILIRUBIN,URINE NEGATIVE (NEGATIVE); CLARITY,URINE SL CLOUDY; COLOR,URINE YELLOW; GLUCOSE, URINE (UA) NEGATIVE (NEGATIVE); KETONES,URINE NEGATIVE (NEGATIVE); LEUKOCYTE ESTERASE ,URINE 2+ (NEGATIVE); NITRITE,URINE NEGATIVE (NEGATIVE); PROTEIN,URINE NEGATIVE (NEGATIVE)
[2021-03-15 06:51] LABS: BASOPHILS % (AUTO) 0 % (0-10); EOSINOPHILS # (AUTO) 0.3 10^3/uL (0.0-0.3); EOSINOPHILS % (AUTO) 3 % (0-10); HEMATOCRIT 30 % (35-52); LYMPHOCYTES # (AUTO) 2.4 10^3/uL (1.0-4.0); LYMPHOCYTES % (AUTO) 23 % (12-44); MEAN CORPUSCULAR HEMOGLOBIN 27 pg (25-34); MEAN CORPUSCULAR HGB CONC 33 g/dL (32-36); MEAN CORPUSCULAR VOLUME 82 fL (80-99); MEAN PLATELET VOLUME 10.5 fL (9.0-12.2); MONOCYTES # (AUTO) 0.7 10^3/uL (0.0-1.0); MONOCYTES % (AUTO) 7 % (0-12); NEUTROPHILS # (AUTO) 6.7 10^3/uL (1.8-7.8); NEUTROPHILS % (AUTO) 66 % (42-75); PLATELET COUNT 309 10^3/uL (130-400); WHITE BLOOD COUNT 10.2 10^3/uL (4.3-11.0)
[2021-03-15 07:19] LABS: BACTERIA,URINE FEW /HPF; TRICHOMONAS,URINE FEW /HPF
[2021-03-15] MEDS: D5 LR IV SOLUTION 1,000 ML IV SCH ×2 (07:20→14:19)
--- NOTE | 2021-03-15 08:23 | History & Physical-OB ---
OB - Chief Complaint & HPI Date/Time Date of Admission: Date of Admission: Mar 15, 2021 at 06:04 Date seen by a Provider: Mar 15, 2021 Time Seen by a Provider: 08:17 Chief Complaint/History OB-Reason for Admission/Chief: Induction of Labor Hx : 4 Hx Para: 2 Expected Date of Delivery: Mar 22, 2021 Gestational Age in Weeks: 39 Gestational Age in Days: 0 Indication for induction: maternal discomfort Admission Nurse Assessment Rev: Yes Other O+, antibody neg, RI. HIV/HepB/RPR neg. chlamydia neg. GC pos at 6 weeks, treated and retest neg at 29 weeks. 1 hour glucola normal. GBS neg. Adrenal labs done at 6 weeks d/t history of adrenal mass, mild elevation in metanephrines but not high enough to be c/w pheo and renin/aldos mild elevation but not at level to suggest tumor secretion (and was not drawn at correct time of day), seen by Surgery prior to (02/2020) and planned to follow labs and CT and then resect vs monitor with repeat CT imaging in 6 months, but became , plan to repeat labs and CT . Allergies and Home Medications Allergies Coded Allergies: No Known Drug Allergies (Unverified , 11/29/11) Patient Home Medication List Home Medication List Reviewed: Yes Vit No.124/Iron/FA ( Vitamin Tablet) 1 Each Tablet, 1 EACH PO DAILY, (Reported) Entered as Reported by: WALLY JAEGER on 03/15/21 9674 Last Action: New Order OB - History Hx of Present Care: Yes Ultrasounds: Normal mid trimester US (repeat US at 33w6d for growth, measuring 35w3d) Obstetrical Complications: Other (GC treated in first trimester) Other Concerns: Obesity Information Induced Hypertension: No Maternal Gestational Diabetes: No Hemorrhage: No Obstetrical History Hx : 4 Hx Para: 2 Hx # Term Pregnancies: 2 Hx # Pregnancies: 0 Number of Living Children: 2 Hx Termination: No Hx Total # of Abortions (Spona: 1 Hx Multiple Gestation: No Hx Ectopic : No Hx Stillbirth: No Hx Complication: No Hx Induced Hypertens: No Hx Maternal Gestational Diabet: No Hx Hemorrhage: No Delivery History Hx Dystocia: No Hx Forceps Assisted Delivery: No Hx Vacuum Extraction Assisted: No Hx Placenta Abnormality: No Hx Distress: No Hx Large For Gestational Age I: Yes Hx Small for Gestational Age I: No Hx Section: No Hx Vaginal Delivery Post C-Sec: No Hx Blood Disorders: No Adverse Rxn to Tranfusion: No Patient Past Medical History PMHx: Adrenal mass depression ADHD SurgHx: Umbilical hernia repair Ear surgery Social History/Family History Alcohol Use: Denies Use Recreational Drug Use: No Smoking Cessation: Current every day smoker 2nd Hand Smoke Exposure: No Immunizations Tetanus Booster (TDap): Less than 5yrs (08/12/2020) Date of Influenza Vaccine: Feb 22, 2021 Rubella: immune RPR/VDRL: Negative GBS Status: Negative HBsAG: Negative OB - Admission Exam Physical Exam Vitals: Vital Signs 03/15/21 03/15/21 06:20 06:59 Temp 36.0 Pulse 99 Resp 20 B/P (MAP) 131/80 (97) Pulse Ox 98 O2 Delivery Room Air HEENT: NCAT Abdomen: Non tender Extremities: Edema (trace) Cervical Dilatation: 4cm (per nursing exam) Effacement: 0% Station: Ballotable Membranes: Intact Heart Rate: 140's Accelerations: Accelerations Present Decelerations: No Decelerations Short Term Variability: Present Assisted Variability: Average (6-25) Contractions on Admission: None Hernandez Scoring Tool (Modified) Dilation (cm): 3-4cm (2) Effacement (%): 0-30% (0) Descent/Station: -3 (0) Cervix Consistency: Soft (2) Cervix Position: Anterior (2) Add 1 point for: Each previous vaginal delivery (1) (2) Hernandez Score: 8 Labs Laboratory Tests Test 03/15/21 06:15 03/15/21 06:30 Range/Units Urine Color YELLOW Urine Clarity SL CLOUDY Urine pH 7.0 5-9 Urine Specific [place] 1.015 L 1.016-1.022 Urine Protein NEGATIVE NEGATIVE Urine Glucose (UA) NEGATIVE NEGATIVE Urine Ketones NEGATIVE NEGATIVE Urine Nitrite NEGATIVE NEGATIVE Urine Bilirubin NEGATIVE NEGATIVE Urine Urobilinogen 0.2 < = 1.0 MG/DL Urine Leukocyte Esterase 2+ H NEGATIVE Urine RBC (Auto) NEGATIVE NEGATIVE Urine RBC NONE /HPF Urine WBC 10-25 H /HPF Urine Squamous Epithelial Cells 2-5 /HPF Urine Crystals NONE /LPF Urine Bacteria FEW H /HPF Urine Casts NONE /LPF Urine Mucus NEGATIVE /LPF Urine Trichomonas FEW H /HPF Urine Culture Indicated YES White Blood Count 10.2 4.3-11.0 10^3/uL Red Blood Count 3.66 L 3.80-5.11 10^6/uL Hemoglobin 10.0 L 11.5-16.0 g/dL Hematocrit 30 L 35-52 % Mean Corpuscular Volume 82 80-99 fL Mean Corpuscular Hemoglobin 27 25-34 pg Mean Corpuscular Hemoglobin Concent 33 32-36 g/dL Red Cell Distribution Width 13.7 10.0-14.5 % Platelet Count 309 130-400 10^3/uL Mean Platelet Volume 10.5 9.0-12.2 fL Immature Granulocyte % (Auto) 1 % Neutrophils (%) (Auto) 66 42-75 % Lymphocytes (%) (Auto) 23 12-44 % Monocytes (%) (Auto) 7 0-12 % Eosinophils (%) (Auto) 3 0-10 % Basophils (%) (Auto) 0 0-10 % Neutrophils # (Auto) 6.7 1.8-7.8 10^3/uL Lymphocytes # (Auto) 2.4 1.0-4.0 10^3/uL Monocytes # (Auto) 0.7 0.0-1.0 10^3/uL Eosinophils # (Auto) 0.3 0.0-0.3 10^3/uL Basophils # (Auto) 0.0 0.0-0.1 10^3/uL Immature Granulocyte # (Auto) 0.1 0.0-0.1 10^3/uL OB - Assessment/Plan/Diagnosis Assessment Admission Dx Induction of labor 39 week intrauterine Tobacco use obesity complicating history of LGA previous Trichomoniasis noted on admit UA Admission Status: Inpatient Order (span 2 midnights) Reason for Inpatient Admission: Labor, delivery and course Plan Plan: Induction Induction Method: per Pitocin Protocol Other Plan Metronidazole for trichomoniasis WALLY JAEGER MD Mar 15, 2021 08:23
[2021-03-15] MEDS ORDERED: PREN-142 PO (08:25)
[2021-03-15] MEDS ORDERED: metroNIDAZOLE 500 MG (FLAGYL) TAB PO SCH (08:45)
[2021-03-15] MEDS: fentaNYL INJ 100 MCG/2 ML AMP IVP PRN ×2 (12:12→14:22)
[2021-03-15] MEDS: CATHETER FLUSH 10 ML SYR IV SCH ×2 (14:20→21:08)
[2021-03-15] MEDS ORDERED: fentaNYL 2 mcg/ml BUPIVA 0.125 100 ML ONE (15:45)
[2021-03-15] MEDS ORDERED: LACTATED RINGERS 1,000 ML IV ONE ×2 (15:46→16:30)
[2021-03-15] MEDS ORDERED: fentaNYL INJ 100 MCG/2 ML AMP ONE (16:07)
[2021-03-15] MEDS ORDERED: BUPIVACAINE 0.25% 30 ML (SENSORCAINE) VIAL ONE (16:07)
--- NOTE | 2021-03-15 16:20 | Labor Progress Note ---
Labor Progress Note Labor Progress Note Date Seen by Provider: Mar 15, 2021 Time Seen by Provider: 16:00 Subjective: Pt hurting a lot with contractions, is sitting up and took off her heart monitor because it was hurting her back. Is going to get epidural shortly. Replaced heart monitor and monitored through contraction prior to AROM and throughout procedure. Objective: Cervical exam: /-3 Consistency: soft Position: anterior Presentation: vertex heart tones: 140s beats per minute, moderate variability, reactive Tocometer: 4-5 ctx/10 minutes Assessment/Plan: Mary Wheatley is a (25 /Para 4 / 2,Gestational Age (wks)39 here for induction of labor. AROM at time of exam with clear fluid return, FSE placed for better heart monitoring. FSE/TOCO Continue pitocin Anesthesia: epidural pending Anticipate vaginal delivery. Vitals - Labs Vital Signs - I&O Vital Signs Date Time Temp Pulse Resp B/P (MAP) Pulse Ox O2 Delivery O2 Flow Rate FiO2 03/15/21 15:15 70 18 127/85 (99) Room Air 03/15/21 15:00 60 18 115/75 (88) Room Air 03/15/21 14:45 56 18 106/63 (77) Room Air 03/15/21 14:30 62 18 109/76 (87) Room Air 03/15/21 14:15 67 18 145/94 (111) Room Air 03/15/21 14:15 64 18 128/80 (96) Room Air 03/15/21 14:00 67 18 145/94 (111) Room Air 03/15/21 13:45 65 18 119/845 (605) Room Air 03/15/21 13:30 67 18 111/75 (87) Room Air 03/15/21 13:15 80 18 111/75 (87) Room Air 03/15/21 13:00 80 18 111/75 (87) Room Air 03/15/21 12:45 64 18 110/68 (82) Room Air 03/15/21 12:30 81 18 111/59 (76) Room Air 03/15/21 12:15 82 18 102/62 (75) Room Air 03/15/21 12:00 77 18 108/61 (77) Room Air 03/15/21 11:45 68 18 117/68 (84) Room Air 03/15/21 11:30 36.1 85 18 137/91 (106) Room Air 03/15/21 11:15 85 18 139/88 (105) Room Air 03/15/21 11:00 65 18 127/87 (100) Room Air 03/15/21 10:45 77 18 110/75 (87) Room Air 03/15/21 10:30 79 18 127/81 (96) Room Air 03/15/21 10:15 18 Room Air 03/15/21 10:00 78 18 135/95 (108) Room Air 03/15/21 09:45 71 18 143/80 (101) Room Air 03/15/21 09:30 85 18 137/76 (96) Room Air 03/15/21 09:20 70 18 121/70 (87) Room Air 03/15/21 09:05 78 18 122/72 (89) Room Air 03/15/21 08:50 18 Room Air 03/15/21 08:35 75 18 125/66 (85) Room Air 03/15/21 08:20 76 18 120/62 (81) Room Air 03/15/21 08:05 76 18 120/62 (81) Room Air 03/15/21 07:55 83 18 120/65 (83) Room Air 03/15/21 07:35 80 18 115/69 (84) Room Air 03/15/21 07:20 36.2 76 18 117/72 (87) 99 Room Air 03/15/21 06:59 36.0 99 20 98 Room Air 03/15/21 06:20 36.0 99 20 131/80 (97) 98 Room Air Labs Laboratory Tests 03/15/21 06:15: Urine Color YELLOW, Urine Clarity SL CLOUDY, Urine pH 7.0, Urine Specific [place] 1.015L, Urine Protein NEGATIVE, Urine Glucose (UA) NEGATIVE, Urine Ketones NEGATIVE, Urine Nitrite NEGATIVE, Urine Bilirubin NEGATIVE, Urine Urobilinogen 0.2, Urine Leukocyte Esterase 2+H, Urine RBC (Auto) NEGATIVE, Urine RBC NONE, Urine WBC 10-25H, Urine Squamous Epithelial Cells 2-5, Urine Crystals NONE, Urine Bacteria FEWH, Urine Casts NONE, Urine Mucus NEGATIVE, Urine Trichomonas FEWH, Urine Culture Indicated YES 03/15/21 06:30: White Blood Count 10.2, Red Blood Count 3.66L, Hemoglobin 10.0L, Hematocrit 30L, Mean Corpuscular Volume 82, Mean Corpuscular Hemoglobin 27, Mean Corpuscular Hemoglobin Concent 33, Red Cell Distribution Width 13.7, Platelet Count 309, Mean Platelet Volume 10.5, Immature Granulocyte % (Auto) 1, Neutrophils (%) (Auto) 66, Lymphocytes (%) (Auto) 23, Monocytes (%) (Auto) 7, Eosinophils (%) (Auto) 3, Basophils (%) (Auto) 0, Neutrophils # (Auto) 6.7, Lymphocytes # (Auto) 2.4, Monocytes # (Auto) 0.7, Eosinophils # (Auto) 0.3, Basophils # (Auto) 0.0, Immature Granulocyte # (Auto) 0.1 WALLY JAEGER MD Mar 15, 2021 16:20
[2021-03-15] MEDS ORDERED: NALOXONE 0.4 MG/ML 1 ML (NARCAN) VIAL IM PRN (16:30)
[2021-03-15] MEDS ORDERED: fentaNYL INJ 100 MCG/2 ML AMP INJ ONE (16:30)
[2021-03-15] MEDS ORDERED: METOCLOPRAMIDE INJ 10 MG/2 ML (REGLAN) IV PRN (16:30)
[2021-03-15] MEDS ORDERED: ONDANSETRON 4 MG/2 ML (SDV) Z0FRAN IV PRN (16:30)
[2021-03-15] MEDS ORDERED: NALOXONE 0.4 MG/ML 1 ML (NARCAN) VIAL IV PRN ×2 (16:30→23:00)
[2021-03-15] MEDS ORDERED: LACTATED RINGERS 1,000 ML IV PRN ×2 (20:00)
[2021-03-15] MEDS ORDERED: FAMOTIDINE 20MG/2ML IV (PEPCID) IV ONE (20:00)
[2021-03-15] MEDS ORDERED: CITRIC ACID/SOB CIT (BICITRA) 30 ML UDC PO ONE (20:00)
[2021-03-15] MEDS ORDERED: METOCLOPRAMIDE INJ 10 MG/2 ML (REGLAN) IV ONE (20:00)
[2021-03-15] MEDS ORDERED: CITRIC ACID/SOB CIT (BICITRA) 30 ML UDC ONE (20:01)
[2021-03-15] MEDS ORDERED: METOCLOPRAMIDE INJ 10 MG/2 ML (REGLAN) ONE (20:01)
[2021-03-15] MEDS ORDERED: FAMOTIDINE 20MG/2ML IV (PEPCID) ONE (20:01)
[2021-03-15] MEDS ORDERED: ceFAZolin 2 GM IV Premixed 50 ML ONE (20:16)
[2021-03-15] MEDS ORDERED: metroNIDAZOLE 500MG/100ML IVPB 100 ML ONE (20:16)
--- NOTE | 2021-03-15 20:24 | Labor Progress Note ---
Labor Progress Note Labor Progress Note Date Seen by Provider: Mar 15, 2021 Time Seen by Provider: 19:50 Subjective: Pt continues to have a lot of pressure in spite of boluses to epidural. Objective: Cervical exam: /- Consistency: soft Position: anterior Presentation: vertex heart tones: 160 beats per minute, minimal variability, occasional late deceleration Tocometer: 3 ctx/10 minutes Assessment/Plan: Mary Wheatley is a (25 /Para 4 / 2,Gestational Age (wks)41 here for induction of labor, now with failure to progress and heart tones with loss of variability and head not descending well, suspect CPD. Discussed with patient and Ob on-call and will proceed with . Vitals - Labs Vital Signs - I&O Vital Signs Date Time Temp Pulse Resp B/P (MAP) Pulse Ox O2 Delivery O2 Flow Rate FiO2 03/15/21 19:10 81 18 129/71 (90) Room Air 03/15/21 19:00 77 18 125/74 (91) Room Air 03/15/21 18:45 82 18 110/51 (70) Room Air 03/15/21 18:30 18 100 Room Air 03/15/21 18:15 81 18 133/74 (93) 100 Room Air 03/15/21 18:00 96 18 119/80 (93) 100 Room Air 03/15/21 17:45 36.3 83 18 131/69 (89) 100 Room Air 03/15/21 17:30 119 18 125/67 (86) 100 Room Air 03/15/21 17:15 76 18 100 Non Rebreather 15.00 03/15/21 17:09 64 18 136/64 (88) 100 Non Rebreather 15.00 03/15/21 17:07 70 18 101/53 (69) 100 Non Rebreather 15.00 03/15/21 17:04 Non Rebreather 15.00 03/15/21 17:00 76 18 107/57 (74) 100 Room Air 03/15/21 16:55 72 18 109/59 (76) 100 Room Air 03/15/21 16:50 88 18 127/73 (91) 100 Room Air 03/15/21 16:45 79 18 125/70 (88) 100 Room Air 03/15/21 16:40 93 18 127/73 (91) 100 Room Air 03/15/21 16:35 93 18 143/81 (101) 100 Room Air 03/15/21 16:30 85 18 100 Room Air 03/15/21 16:25 93 18 155/95 (115) 100 Room Air 03/15/21 16:20 90 18 163/103 (123) 100 Room Air 03/15/21 16:15 18 137/95 (109) Room Air 03/15/21 16:00 18 137/95 (109) Room Air 03/15/21 15:45 18 Room Air 03/15/21 15:30 63 18 127/84 (98) Room Air 03/15/21 15:15 70 18 127/85 (99) Room Air 03/15/21 15:00 60 18 115/75 (88) Room Air 03/15/21 14:45 56 18 106/63 (77) Room Air 03/15/21 14:30 62 18 109/76 (87) Room Air 03/15/21 14:15 67 18 145/94 (111) Room Air 03/15/21 14:15 64 18 128/80 (96) Room Air 03/15/21 14:00 67 18 145/94 (111) Room Air 03/15/21 13:45 65 18 119/845 (605) Room Air 03/15/21 13:30 67 18 111/75 (87) Room Air 03/15/21 13:15 80 18 111/75 (87) Room Air 03/15/21 13:00 80 18 111/75 (87) Room Air 03/15/21 12:45 64 18 110/68 (82) Room Air 03/15/21 12:30 81 18 111/59 (76) Room Air 03/15/21 12:15 82 18 102/62 (75) Room Air 03/15/21 12:00 77 18 108/61 (77) Room Air 03/15/21 11:45 68 18 117/68 (84) Room Air 03/15/21 11:30 36.1 85 18 137/91 (106) Room Air 03/15/21 11:15 85 18 139/88 (105) Room Air 03/15/21 11:00 65 18 127/87 (100) Room Air 03/15/21 10:45 77 18 110/75 (87) Room Air 03/15/21 10:30 79 18 127/81 (96) Room Air 03/15/21 10:15 18 Room Air 03/15/21 10:00 78 18 135/95 (108) Room Air 03/15/21 09:45 71 18 143/80 (101) Room Air 03/15/21 09:30 85 18 137/76 (96) Room Air 03/15/21 09:20 70 18 121/70 (87) Room Air 03/15/21 09:05 78 18 122/72 (89) Room Air 03/15/21 08:50 18 Room Air 03/15/21 08:35 75 18 125/66 (85) Room Air 03/15/21 08:20 76 18 120/62 (81) Room Air 03/15/21 08:05 76 18 120/62 (81) Room Air 03/15/21 07:55 83 18 120/65 (83) Room Air 03/15/21 07:35 80 18 115/69 (84) Room Air 03/15/21 07:20 36.2 76 18 117/72 (87) 99 Room Air 03/15/21 06:59 36.0 99 20 98 Room Air 03/15/21 06:20 36.0 99 20 131/80 (97) 98 Room Air Labs Laboratory Tests 03/15/21 06:15: Urine Color YELLOW, Urine Clarity SL CLOUDY, Urine pH 7.0, Urine Specific [place] 1.015L, Urine Protein NEGATIVE, Urine Glucose (UA) NEGATIVE, Urine Ketones NEGATIVE, Urine Nitrite NEGATIVE, Urine Bilirubin NEGATIVE, Urine Urobilinogen 0.2, Urine Leukocyte Esterase 2+H, Urine RBC (Auto) NEGATIVE, Urine RBC NONE, Urine WBC 10-25H, Urine Squamous Epithelial Cells 2-5, Urine Crystals NONE, Urine Bacteria FEWH, Urine Casts NONE, Urine Mucus NEGATIVE, Urine Trichomonas FEWH, Urine Culture Indicated YES 03/15/21 06:30: White Blood Count 10.2, Red Blood Count 3.66L, Hemoglobin 10.0L, Hematocrit 30L, Mean Corpuscular Volume 82, Mean Corpuscular Hemoglobin 27, Mean Corpuscular Hemoglobin Concent 33, Red Cell Distribution Width 13.7, Platelet Count 309, Chasity n Platelet Volume 10.5, Immature Granulocyte % (Auto) 1, Neutrophils (%) (Auto) 66, Lymphocytes (%) (Auto) 23, Monocytes (%) (Auto) 7, Eosinophils (%) (Auto) 3, Basophils (%) (Auto) 0, Neutrophils # (Auto) 6.7, Lymphocytes # (Auto) 2.4, Monocytes # (Auto) 0.7, Eosinophils # (Auto) 0.3, Basophils # (Auto) 0.0, Immature Granulocyte # (Auto) 0.1 WALLY JAEGER MD Mar 15, 2021 20:24
[2021-03-15] MEDS ORDERED: metroNIDAZOLE 500MG/100ML IVPB 100 ML IV ONE (20:30)
[2021-03-15] MEDS ORDERED: ceFAZolin 2 GM IV Premixed 50 ML IV ONE (20:30)
[2021-03-15] MEDS ORDERED: BUPIVACAINE 0.5% 30 ML (SENSORCAINE) VIAL ONE (21:00)
[2021-03-15] MEDS ORDERED: KETOROLAC 30 MG/ML VIAL ONE (21:00)
[2021-03-15] MEDS ORDERED: LIDOCAINE PF 2% 5 ML (XYLOCAINE) VIAL ONE (21:00)
[2021-03-15] MEDS ORDERED: OXYTOCIN PRE-MIX DRIP 500 ML IV ONE (21:01)
[2021-03-15] MEDS ORDERED: D5 LR IV SOLUTION 1,000 ML IV SCH (23:00)
[2021-03-15] MEDS: OXYTOCIN PRE-MIX DRIP 500 ML IV SCH ×2 (23:00→23:17)
[2021-03-15] MEDS ORDERED: oxyCODONE/APAP 10/325MG (PERCOCET 10) TABLET PO ONE (23:05)
[2021-03-15] MEDS: oxyCODONE/APAP 10/325MG (PERCOCET 10) TABLET PO PRN ×2 (23:09→23:23)
[2021-03-16] MEDS ORDERED: KETOROLAC 30 MG/ML VIAL IV SCH
[2021-03-16 03:06] VITALS: BP 126/73
--- NOTE | 2021-03-16 05:31 | OPERATIVE REPORT ---
DATE OF SERVICE: 03/15/2021 PREOPERATIVE DIAGNOSIS: Term at 39+ weeks' gestation in labor with failure to progress. POSTOPERATIVE DIAGNOSES: Term at 39+ weeks' gestation in labor with failure to progress with persistent OP. OPERATIVE PROCEDURE: Primary low transverse delivery of a viable male with Apgars of 9 and 9 at 1 and 5 minutes respectively, weight of 7 pounds 13 ounces, time of 2052 and a cord blood pH that is pending. OPERATIVE DESCRIPTION: With the patient in supine position under satisfactory epidural analgesia, she was prepped and draped in the usual fashion for abdominal surgery. She had a relatively large panniculus. Towel clips were placed in the right and left sides just above the lower quadrant margin on each side and using Kerlix that was attached to posts at the top of the bed to retract the panniculus and expose the lower abdomen. A Pfannenstiel incision was made through the skin with scalpel, the patient's abdomen was entered in the usual manner. Bladder retractor placed in position, clean scalpel used to make a 4 cm hysterotomy incision transversely across the lower uterine segment that was extended bluntly as well. A small amount of fluid was released on hysterotomy. A vigorous viable male infant was delivered via the uterine incision. had Apgars of 9 and 9 at 1 and 5 minutes respectively. Weight was 7 pounds 13 ounces and the stats were as noted above. The was bulb suctioned on delivery of the head and again on completion of delivery. The umbilical cord was doubly clamped and cut and the infant passed to the pediatric nurse in attendance for delivery. Cord bloods were obtained. The placenta delivered spontaneously Byrne. It was normal with a 3-vessel cord. The uterus was exteriorized and interior wiped clean with a wet laparotomy sponge. Uterine incision closed with running locked suture of 2-0 Vicryl. Hemostasis was achieved by placing several [id number] sutures of bleeding spots along the incision. With hemostasis assured, the uterus was somewhat boggy. A modified B-[place] suture was placed using 2-0 chromic sutures in the usual modified manner. The uterus was compressed nicely. The uterus was now returned to the abdominal cavity. All blood clot and debris removed from the abdominal cavity. Sponge and needle counts correct, hemostasis now assured. Anterior parietal peritoneum was closed with running suture of 2-0 Vicryl. Rectus muscles were closed with that suture. Rectus fascia was closed with 2-0 Vicryl, subcutaneous tissue was closed with 2-0 Vicryl and the skin was stapled. Sponge and needle counts were correct on completion of the procedure. Blood loss was around 400 mL. The patient tolerated the procedure well and was transferred to the recovery room in stable condition. The had been taken stable to the full-term nursery under the care of the pediatric nurse. 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
[2021-03-16] MEDS: oxyCODONE/APAP 10/325MG (PERCOCET 10) TABLET PO PRN ×4 (06:27→23:55)
--- NOTE | 2021-03-16 09:08 | Progress Note ---
Standard Progress Note Progress Notes/Assess & Plan Date Seen by a Provider: Mar 16, 2021 Time Seen by a Provider: 08:53 Progress/Assessment & Plan This patient is without complaint. She is ambulating, voiding, tolerating oral intake well has good pain control. Vital Signs Date Time Temp Pulse Resp B/P (MAP) Pulse Ox O2 Delivery O2 Flow Rate FiO2 03/16/21 06:10 Room Air 03/16/21 03:06 36.6 92 18 126/73 (90) 98 Room Air 03/15/21 23:09 36.8 98 18 140/82 (101) 98 Room Air 03/15/21 22:30 Room Air 03/15/21 22:30 36.6 88 18 136/78 (97) 99 Room Air 03/15/21 22:20 37.7 16 124/77 (93) 100 Room Air 03/15/21 22:10 16 126/82 (97) 100 Room Air 03/15/21 22:01 Room Air 03/15/21 22:00 16 121/79 (93) 100 Room Air 03/15/21 21:50 18 123/79 (94) 100 Room Air 03/15/21 21:40 16 120/72 (88) 100 Room Air 03/15/21 21:31 37.5 20 101/77 (85) 97 Room Air 03/15/21 21:31 Room Air 03/15/21 20:22 74 18 123/68 (86) Room Air 03/15/21 20:15 96 18 135/69 (91) Room Air 03/15/21 20:00 111 18 137/78 (97) Room Air 03/15/21 19:50 112 18 132/67 (88) Room Air 03/15/21 19:45 102 18 136/81 (99) Room Air 03/15/21 19:40 89 18 123/69 (87) 100 Room Air 03/15/21 19:35 97 18 120/73 (89) 100 Room Air 03/15/21 19:30 36.6 93 18 134/73 (93) 100 Room Air 03/15/21 19:25 36.6 125 18 119/61 (80) 98 Room Air 03/15/21 19:10 81 18 129/71 (90) Room Air 03/15/21 19:00 77 18 125/74 (91) Room Air 03/15/21 18:45 82 18 110/51 (70) Room Air 03/15/21 18:30 18 100 Room Air 03/15/21 18:15 81 18 133/74 (93) 100 Room Air 03/15/21 18:00 96 18 119/80 (93) 100 Room Air 03/15/21 17:45 36.3 83 18 131/69 (89) 100 Room Air 03/15/21 17:30 119 18 125/67 (86) 100 Room Air 03/15/21 17:15 76 18 100 Non Rebreather 15.00 03/15/21 17:09 64 18 136/64 (88) 100 Non Rebreather 15.00 03/15/21 17:07 70 18 101/53 (69) 100 Non Rebreather 15.00 03/15/21 17:04 Non Rebreather 15.00 03/15/21 17:00 76 18 107/57 (74) 100 Room Air 03/15/21 16:55 72 18 109/59 (76) 100 Room Air 03/15/21 16:50 88 18 127/73 (91) 100 Room Air 03/15/21 16:45 79 18 125/70 (88) 100 Room Air 03/15/21 16:40 93 18 127/73 (91) 100 Room Air 03/15/21 16:35 93 18 143/81 (101) 100 Room Air 03/15/21 16:30 85 18 100 Room Air 03/15/21 16:25 93 18 155/95 (115) 100 Room Air 03/15/21 16:20 90 18 163/103 (123) 100 Room Air 03/15/21 16:15 18 137/95 (109) Room Air 03/15/21 16:00 18 137/95 (109) Room Air 03/15/21 15:45 18 Room Air 03/15/21 15:30 63 18 127/84 (98) Room Air 03/15/21 15:15 70 18 127/85 (99) Room Air 03/15/21 15:00 60 18 115/75 (88) Room Air 03/15/21 14:45 56 18 106/63 (77) Room Air 03/15/21 14:30 62 18 109/76 (87) Room Air 03/15/21 14:15 67 18 145/94 (111) Room Air 03/15/21 14:15 64 18 128/80 (96) Room Air 03/15/21 14:00 67 18 145/94 (111) Room Air 03/15/21 13:45 65 18 119/845 (605) Room Air 03/15/21 13:30 67 18 111/75 (87) Room Air 03/15/21 13:15 80 18 111/75 (87) Room Air 03/15/21 13:00 80 18 111/75 (87) Room Air 03/15/21 12:45 64 18 110/68 (82) Room Air 03/15/21 12:30 81 18 111/59 (76) Room Air 03/15/21 12:15 82 18 102/62 (75) Room Air 03/15/21 12:00 77 18 108/61 (77) Room Air 03/15/21 11:45 68 18 117/68 (84) Room Air 03/15/21 11:30 36.1 85 18 137/91 (106) Room Air 03/15/21 11:15 85 18 139/88 (105) Room Air 03/15/21 11:00 65 18 127/87 (100) Room Air 03/15/21 10:45 77 18 110/75 (87) Room Air 03/15/21 10:30 79 18 127/81 (96) Room Air 03/15/21 10:15 18 Room Air 03/15/21 10:00 78 18 135/95 (108) Room Air 03/15/21 09:45 71 18 143/80 (101) Room Air 03/15/21 09:30 85 18 137/76 (96) Room Air 03/15/21 09:20 70 18 121/70 (87) Room Air 03/15/21 09:05 78 18 122/72 (89) Room Air I & O 03/16/21 07:00 Intake Total 5150 ml Output Total 1350 ml Balance 3800 ml Vital signs are stable. Patient is afebrile. The abdomen is benign. The surgical incision is clean dry and intact. Extremities show no clubbing cyanosis. There is no Homans' sign. Assessment and plan Postoperative day #1 status post primary delivery doing well. Plans for routine convalescent care GEORGIANA ARORA MD Mar 16, 2021 09:08
[2021-03-16 09:09] VITALS: BP 157/68
[2021-03-16] MEDS ORDERED: IBUPROFEN 800 MG (MOTRIN) TAB PO ONE ×3 (09:14→21:11)
[2021-03-16] MEDS: DOCUSATE SODIUM 100 MG (COLACE) CAP PO SCH ×2 (09:15→21:13)
[2021-03-16] MEDS: IBUPROFEN 800 MG (MOTRIN) TAB PO SCH ×3 (09:15→21:13)
[2021-03-16] MEDS ORDERED: OXYC1TAB12 PO (09:17)
[2021-03-16] MEDS ORDERED: IBUP-1780 PO (09:17)
[2021-03-16] MEDS ORDERED: DOCU100C37 PO (09:17)
--- NOTE | 2021-03-16 09:19 | Discharge Inst-Surgical ---
Discharge Inst-Surgical Depart Medication/Instructions New, Converted or Re-Newed RX: Transmitted to Pharmacy Consults/Follow Up Patient Instructions: As directed Orders & Referrals Follow Up Appt: RTC 1 week for incision check with Dr. Wallace Call to make follow up appt. for patient in [address] Gonzalez. Wound Care: Remove viola, apply benzoin and steri strips. Activity Per routine post instructions. Diet as tolerated Patient may shower or tub bathe as desired. Continue home meds Activity Activity as Tolerated: No Diet Discharge Diet: No Restrictions GEORGIANA WALLACE MD Mar 16, 2021 09:19
--- NOTE | 2021-03-16 11:08 | Anesthesia-Regional Post-Op ---
Regional Patient Condition Mental Status: Alert, Oriented x3 Circulation: Same as Pre-Op Headache: Absent Sensation: Full Recovery Motor Block: Absent Post Op Complications Complications None Follow Up Care/Instructions Patient Instructions None needed. Anesthesia/Patient Condition Patient is doing well, no complaints, stable vital signs, no apparent adverse anesthesia problems. No complications reported per nursing. DAMIÁN BARAJAS CRNA Mar 16, 2021 11:08
[2021-03-16 12:30] VITALS: BP 139/86
[2021-03-16] MEDS ORDERED: SIMETHICONE 80 MG (MYLICON) CHEW ONE (15:20)
[2021-03-16] MEDS: SIMETHICONE 80 MG (MYLICON) CHEW PO SCH ×2 (15:21→18:24)
[2021-03-16 17:00] VITALS: BP 141/90
[2021-03-16] MEDS ORDERED: METOCLOPRAMIDE 10 MG (REGLAN) TAB ONE (18:21)
[2021-03-16] MEDS: METOCLOPRAMIDE 10 MG (REGLAN) TAB PO PRN ×2 (18:33→23:55)
[2021-03-16 23:55] VITALS: BP 125/77
[2021-03-17] MEDS ORDERED: IBUPROFEN 800 MG (MOTRIN) TAB PO ONE (03:07)
[2021-03-17] MEDS: IBUPROFEN 800 MG (MOTRIN) TAB PO SCH ×2 (03:10→08:57)
[2021-03-17 06:23] VITALS: BP 126/59
[2021-03-17] MEDS: METOCLOPRAMIDE 10 MG (REGLAN) TAB PO PRN ×2 (06:26→11:32)
[2021-03-17 08:10] VITALS: BP 134/85
[2021-03-17] MEDS: SIMETHICONE 80 MG (MYLICON) CHEW PO SCH (08:57)
[2021-03-17] MEDS: DOCUSATE SODIUM 100 MG (COLACE) CAP PO SCH (08:57)
[2021-03-17] MEDS: oxyCODONE/APAP 10/325MG (PERCOCET 10) TABLET PO PRN (11:32)
== END 2021-03-17 13:50 | disposition home or self-care (01) | DRG 788 ==
LOC: LDRP 06:04 → WS 22:30
PROVIDERS: ADMIT Family Medicine; ATTEND Family Medicine
PROC: 10D00Z1 Extraction of Products of Conception, Low, Open Approach (ICD-10-PCS; principal; 2021-03-15 20:32)
DX: O62.0 Primary inadequate contractions (principal); Z3A.39 39 weeks gestation of pregnancy; Z37.0 Single live birth; O64.0XX0 Obstructed labor due to incomplete rotation of fetal head, not applicable or unspecified; O99.214 Obesity complicating childbirth; A59.9 Trichomoniasis, unspecified; O33.9 Maternal care for disproportion, unspecified; O98.319 Other infections with a predominantly sexual mode of transmission complicating pregnancy, unspecified trimester
CPT/HCPCS: 36415; 81000; 85025; 86780; 86850; 86900; 86901; 87088; 94664

== ENCOUNTER 2021-09-02 21:06 | Emergency (ER) | payer MEDICAID ==
[~2021-09-02] VITALS: Ht 155 cm; Wt 109.0 kg
[~2021-09-02 21:06] MED LIST changes: +ACHD5005 PO; +DOCU100C37 PO; +IBUP-1773 PO; +IBUP-1780 PO; +OXYC1TAB12 PO; +PREN-142 PO
[2021-09-02] MEDS ORDERED: SULF-221 (21:31)
[2021-09-02] MEDS ORDERED: LIDOCAINE 2% 20 ML (XYLOCAINE) VIAL INJ STA (21:36)
[2021-09-02] MEDS ORDERED: LIDOCAINE/EPI 1%-1:100,000 (XYLOCAINE) 10 ML ONE (21:41)
[2021-09-02] MEDS ORDERED: AZITHROMYCIN 250 MG TAB (ZITHROMAX) PO STA (22:07)
[2021-09-02] MEDS ORDERED: DOXY100T2 PO (22:13)
[2021-09-02] MEDS ORDERED: ACHD5005 PO (22:13)
--- NOTE | 2021-09-02 22:13 | ED GU-Female ---
General Chief Complaint: - 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 Stated Complaint: VAG ABSCESS Nursing Triage Note: c/o vaginal cyst x1 week, pain x4 days. seen by pcp 08/31/21 started on abx. reports pain worse tonight. Source: patient History of Present Illness Date Seen by Provider: Sep 02, 2021 Time Seen by Provider: 21:29 Initial Comments PT ARRIVES VIA POV FROM HOME C/O PAINFUL SWELLING TO RIGHT LABIA X 1 WEEK NO DRAINAGE NO FEVER NO DIFFICULTY URINATING NO VAGINAL DISCHARGE OR VAGINAL BLEEDING NO ULCERS/SORES, ETC NO HISTORY OF SIMILAR NO RELIEF WITH IBUPROFEN 3-4 HOURS AGO PT WAS SEEN AT [facility] WALK IN [facility]IC AND SAW BUYER INTERN ALEXANDRA--WAS TOLD SHE HAD A BARTHOLIN'S CYST AND PRESCRIBED BACTRIM. PT STATES IT HAS GOTTEN WORSE PT DELIVERED 03/2021. PT IS NOT PT THINKS SHE HAD A PERIOD IN APRIL OR MAY, THEN HAD BILATERAL TUBAL LIGATION 06/16/21 HAS NOT HAD A PERIOD SINCE THEN--STATES HER PERIODS HAVE ALWAYS BEEN IRREGULAR AND IS NORMAL FOR HER TO GO SEVERAL MONTHS WITHOUT HAVING A PERIOD. PT HAS HISTORY OF TRICHOMONAS, AND GENITAL WARTS. PCP: [facility] Allergies and Home Medications Allergies Coded Allergies: No Known Drug Allergies (Unverified , 11/29/11) Patient Home Medication List Home Medication List Reviewed: Yes Doxycycline Hyclate (Doxycycline Hyclate) 100 Mg Tablet, 100 MG PO BID Prescribed by: PAUL LEY on 09/02/212212 Hydrocodone/Acetaminophen (Hydrocodone-Acetamin 5-325 mg) 5 Mg-325 Mg Tablet, 1 EACH PO Q4-6 HOURS PRN for PAIN Prescribed by: PAUL LEY on 09/02/212212 Sulfamethoxazole/Trimethoprim (Bactrim Ds Tablet) 800 Mg-160 Mg Tablet, (Reported) Entered as Reported by: JOSEPH SANCHEZ on 09/02/212130 Last Action: New Order Discontinued Medications Docusate Sodium (Docusate Sodium) 100 Mg Capsule, 100 MG PO BID Discontinued Reason: No Longer Taking Prescribed by: GEORGIANA BAHENA on 03/16/21 0917 Last Action: Discontinued Hydrocodone/Acetaminophen (Hydrocodone-Acetamin 5-325 mg) 1 Each Tablet, 1-2 TAB PO Q6H PRN for PAIN-MODERATE (5-7) Discontinued Reason: No Longer Taking Prescribed by: EDDIE PRASAD on 06/15/21 1344 Last Action: Discontinued Ibuprofen (Ibuprofen) 800 Mg Tablet, 800 MG PO Q8HR Discontinued Reason: No Longer Taking Prescribed by: GEORGIANA BAHENA on 03/16/21916 Last Action: Discontinued Ibuprofen (Ibuprofen) 600 Mg Tablet, 600 MG PO Q6H Discontinued Reason: No Longer Taking Prescribed by: EDDIE PRASAD on 06/15/21 1343 Last Action: Discontinued Oxycodone HCl/Acetaminophen (Percocet 10-325 mg Tablet) 1 Each Tablet, 1 TAB PO Q4HR PRN for PAIN-MODERATE (5-7) Discontinued Reason: No Longer Taking Prescribed by: GEORGIANA BAHENA on 03/16/21917 Last Action: Discontinued Vit No.124/Iron/FA ( Vitamin Tablet) 1 Each Tablet, 1 EACH PO DAILY, (Reported) Discontinued Reason: No Longer Taking Entered as Reported by: WALLY JAEGER on 03/15/21824 Last Action: Discontinued Review of Systems Review of Systems Constitutional: no symptoms reported Genitourinary: see HPI : No Skin: see HPI Past Vyjcvnc-[id number]-Ztizvw Hx Patient Social History Tobacco Use?: Yes Tobacco type used: Cigarettes Smoking Status: Current Everyday Smoker Substance use?: Yes Substance type: Marijuana Alcohol Use?: Yes Alcohol Frequency: Once in a while Pt feels they are or have been: No Immunizations Up To Date Tetanus Booster (TDap): Less than 5yrs Seasonal Allergies Seasonal Allergies: No Past Medical History Surgery/Hospitalization HX: c-sect, umbilical hernia Surgeries: Yes (BMT'S;R TM REPAIR;UMBILICAL HERNIA;REMOVAL OF PLANTAR & GENITAL WARTS;C-SE) Abdominal, Section, Ear Surgery, Tubal Ligation Respiratory: Yes Asthma Cardiac: No Neurological: No 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 Disorders: Yes Female 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 Disorders: Denies, Polycystic Ovarian Dis 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 Sexually Transmitted Disease: Yes (TRICHOMONAS, GENITAL WARTS REMOVED ) Genitourinary: No Gastrointestinal: Yes (UMBILICAL HERNIA REPAIR) Musculoskeletal: No Endocrine: No HEENT: Yes (BMT'S; REPAIR OF RIGHT EAR DRUM) Chronic Ear Infection Cancer: No Psychosocial: Yes Depression Integumentary: No Blood Disorders: No Adverse Reaction/Blood Tranf: No Family Medical History Autism (Brothers) Diabetes mellitus (Father) FH: Down syndrome (Brother) FH: breast cancer (Maternal side) FH: stroke Heart murmur (Brother) Myocardial infarction (Grandfather) Physical Exam Vital Signs Vital Signs - First Documented 09/02/21 21:24 Temp 37.0 Pulse 99 Resp 18 B/P (MAP) 140/90 (107) Pulse Ox 99 O2 Delivery Room Air Capillary Refill : Less Than 3 Seconds Height, Weight, BMI Height: 5'1.00" Weight: 215lbs. oz. 97.703582sp; 45.00 BMI Method:Stated General Appearance: WD/WN, no apparent distress (BUT WALKING SLOWLY WITH WIDE STANCE), obese Cardiovascular: regular rate, rhythm, no murmur Respiratory: normal breath sounds Gastrointestinal: soft Pelvic: other (LARGE ABSCESS TO RIGHT LABIA WITH TYPICAL APPEARANCE AND LOCATION OF BARTHOLIN'S CYST/ABSCESS. NO POINTING OR DRAINAGE. NO ULCERS OR LESIONS. NO VAGINAL DISCHARGE. ) Extremities: normal inspection Neurologic/Psychiatric: no motor/sensory deficits, alert, oriented x 3 Skin: normal color, warm/dry, tattoos/piercings (EXTENSIVE) Procedures/Interventions I&D : Site: RIGHT LABIA Blade Size: 11 I & D Procedure: betadine prep, sterile drapes applied, sterile dressing applied, gauze wick placed, Wound Packing Packing/Drain: Idoform 1/4 Progress AREA CLEANSED WITH BETASEPT, THEN BETADINE INJECTED WITH 1& LIDOCAINE PLAIN INCISED WITH #11 BLADE IMMEDIATE RETURN OF LARGE AMOUNT OF PURULENT DRAINAGE--CULTURES OBTAINED. PROBED TO BREAK UP LOCULATIONS IRRIGATED WITH STERILE SALINE PACKED WITH 1/4" IODOFORM GAUZE DRESSED WITH ABD DRESSING. Progress/Results/Core Measures Suspected Sepsis SIRS Temperature: Pulse: 99 Respiratory Rate: 18 Blood Pressure 140 /90 Mean: 107 Results/Orders My Orders Orders - PAUL LEY DO Lidocaine 2% Injection 20 Ml (Xylocaine (09/02/21 21:36) Lidocaine/Epi 1% 1:100,000 (Xylocaine 1% (09/02/21 21:41) Ceftriaxone (Rocephin) (09/02/21 22:15) Azithromycin Tablet (Zithromax Tablet) (09/02/21 22:07) Wound Culture (09/02/21 22:07) Lidocaine 1% Inj 20 Ml (Xylocaine 1% Inj (09/02/21 22:15) Rx-Hydrocodone/Apap 5-325 Mg (Rx-Vicodin (09/02/21 22:15) Medications Given in ED Current Medications Medications Dose Ordered Sig/Jose Route Start Time Stop Time Status Last Admin Dose Admin Acetaminophen/ Hydrocodone Bitart 1 ea Q4H PRN PO 09/02/21 22:15 09/02/21 22:46 DC 09/02/21 22:43 1 EA Ceftriaxone Sodium 1,000 mg ONCE ONCE IM 09/02/21 22:15 09/02/21 22:16 DC 09/02/21 22:42 1,000 MG Lidocaine HCl 2.1 ml ONCE ONCE INJ 09/02/21 22:15 09/02/21 22:16 DC 09/02/21 22:43 2.1 ML Lidocaine/ Epinephrine 10 ml STK-MED ONCE .ROUTE 09/02/21 21:41 09/02/21 21:43 DC 09/02/21 21:44 10 ML Vital Signs/I&O 09/02/21 09/02/21 21:24 22:46 Temp 37.0 36.5 Pulse 99 79 Resp 18 16 B/P (MAP) 140/90 (107) 132/78 Pulse Ox 99 100 O2 Delivery Room Air Room Air Capillary Refill : Less Than 3 Seconds Blood Pressure Mean: 107 Progress Note : Progress Note GIVEN ROCEPHIN AND ZITHROMAX TO COVER POTENTIAL GC AND CHLAMYDIA, WITH CULTURES PENDING WILL HAVE PT CONTINUE BACTRIM AND WILL ADD DOXYCYCLINE, PENDING CULTURES PAIN MEDICATION PRESCRIBED WELL WILL HAVE PT FOLLOW UP WITH GROUND SUPPORT EQUIPMENT MECHANIC FOR FURTHER CARE. Departure Impression Primary Impression: Bartholin's gland abscess Disposition: HOME, SELF-CARE Condition: Stable Departure-Patient Inst. Decision time for Depature: 22:10 Referrals: [facility] (PCP/Family) Primary Care Physician LB HONG MD Patient Instructions: Bartholin Gland Cyst, Abscess Incision and Drainage ED Add. Discharge Instructions: CHANGE DRESSING DAILY DO NOT REMOVE PACKING KEEP AREA CLEAN AND DRY CONTINUE BACTRIM FOLLOW UP WITH DR. HONG ( IT APPLICATION DEVELOPMENT MANAGER) IN 2-3 DAYS FOR FURTHER CARE, CALL ON SATURDAY TO SCHEDULE APPOINTMENT All discharge instructions reviewed with patient and/or family. Voiced understanding. Scripts Hydrocodone/Acetaminophen (Hydrocodone-Acetamin 5-325 mg) 5 Mg-325 Mg Tablet 1 EACH PO Q4-6 HOURS PRN for PAIN, #20 TAB Prov: PAUL LEY DO 09/02/21 Doxycycline Hyclate (Doxycycline Hyclate) 100 Mg Tablet 100 MG PO BID, #20 TAB 0 Refills Prov: PAUL LEY DO 09/02/21 PAUL LEY DO Sep 02, 2021 22:13
[2021-09-02] MEDS ORDERED: cefTRIAXone 1,000 MG VIAL IM ONE (22:15)
[2021-09-02] MEDS ORDERED: LIDOCAINE 1% INJ 20 ML VIAL INJ ONE (22:15)
[2021-09-02 22:46] VITALS: BP 132/78
== END 2021-09-02 22:46 | disposition home or self-care (01) ==
LOC: EDUNIT# 21:06 → ER 21:08
DX: N75.1 Abscess of Bartholin's gland (principal); F17.210 Nicotine dependence, cigarettes, uncomplicated; Z86.19 Personal history of other infectious and parasitic diseases
CPT/HCPCS: 87070; 87077; 87186; 87205; 99284

== ENCOUNTER 2022-07-27 19:18 | Emergency (ER) | payer MEDICAID ==
[~2022-07-27] VITALS: Ht 154 cm; Wt 101.0 kg
[~2022-07-27 19:18] MED LIST changes: +ALBU8.5H6 IH; -DOXY-311 PO; +DOXY-444 PO; +DOXY100T2 PO; -RT-ALBUINH IH; +SULF-221
[2022-07-27] MEDS ORDERED: HYDROcodone/APAP 5 MG/325 MG (LORTAB) TAB PO ONE (20:00)
[2022-07-27] MEDS ORDERED: METR-145 PO (21:03)
--- NOTE | 2022-07-27 21:04 | ED GU-Female ---
General Chief Complaint: - 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 Stated Complaint: ABSCESS BETWEEN VAG/RECTAL AREA Nursing Triage Note: PT AMB TO [facility] WITH CC OF VAGINAL CYST. PT STATES THAT SHE DEVELOPED PAIN A COUPLE DAYS AGO AND DR. SIBLEY RECOMMEND HER TO COME TO ER FOR REMOVAL. PT HAS HX OF THIS ISSUE. Source: patient Exam Limitations: no limitations History of Present Illness Date Seen by Provider: Jul 27, 2022 Time Seen by Provider: 19:30 Initial Comments 27-year old female presents to the ED with reports of a lump in the groin region for the last 1.5 months. States it started out as the size of a pea. She reports it has increased in size and became painful last night. She states she was told that it was a hernia, but she reports she has also had a bartholin cyst in the past. She states that it feels like her previous bartholin cyst. She denies fevers, chest pain, shortness of air, abdominal pain, nausea, vomiting, and diarrhea. 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 She currently does not take any medication.s Allergies and Home Medications Allergies Coded Allergies: No Known Drug Allergies (Unverified , 11/29/11) Patient Home Medication List Home Medication List Reviewed: Yes Doxycycline Hyclate (Doxycycline Hyclate) 100 Mg Tablet, 100 MG PO BID Prescribed by: PAUL LEY on 09/02/212212 Hydrocodone/Acetaminophen (Hydrocodone-Acetamin 5-325 mg) 5 Mg-325 Mg Tablet, 1 EACH PO Q4-6 HOURS PRN for PAIN Prescribed by: PAUL LEY on 09/02/212212 Metronidazole (Metronidazole) 500 Mg Tablet, 500 MG PO BID Prescribed by: Claudette Cr on 07/27/222102 Sulfamethoxazole/Trimethoprim (Bactrim Ds Tablet) 800 Mg-160 Mg Tablet, (Reported) Entered as Reported by: JOSEPH SANCHEZ on 09/02/212130 Review of Systems Review of Systems Constitutional: see HPI Past Bqwzmmr-Cboqhm-Xotevw Hx Patient Social History Tobacco Use?: Yes Tobacco type used: Cigarettes Use of E-Cig and/or Vaping dev: Yes Substance use?: No Alcohol Use?: No Immunizations Up To Date Tetanus Booster (TDap): Less than 5yrs Seasonal Allergies Seasonal Allergies: No Past Medical History Surgery/Hospitalization HX: c-sect, umbilical hernia Surgeries: Yes (BMT'S;R TM REPAIR;UMBILICAL HERNIA;REMOVAL OF PLANTAR & GENITAL WARTS;C-SE) Abdominal, Section, Ear Surgery, Tubal Ligation Respiratory: Yes Asthma Cardiac: No Neurological: No 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 Disorders: Yes Female 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 Disorders: Denies, Polycystic Ovarian Dis 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 Sexually Transmitted Disease: Yes (TRICHOMONAS, GENITAL WARTS REMOVED ) Genitourinary: No Gastrointestinal: Yes (UMBILICAL HERNIA REPAIR) Musculoskeletal: No Endocrine: No HEENT: Yes (BMT'S; REPAIR OF RIGHT EAR DRUM) Chronic Ear Infection Cancer: No Psychosocial: Yes Depression Integumentary: No Blood Disorders: No Adverse Reaction/Blood Tranf: No Family Medical History Autism (Brothers) Diabetes mellitus (Father) FH: Down syndrome (Brother) FH: breast cancer (Maternal side) FH: stroke Heart murmur (Brother) Myocardial infarction (Grandfather) Physical Exam Vital Signs Vital Signs - First Documented 07/27/22 19:25 Pulse 89 B/P (MAP) 136/71 (92) Pulse Ox 98 O2 Delivery Room Air Capillary Refill : Height, Weight, BMI Height: 5'1.00" Weight: 215lbs. oz. 97.039906td; 42.00 BMI Method:Stated General Appearance: WD/WN, no apparent distress Neck: supple Cardiovascular: regular rate, rhythm, no edema, no gallop, no JVD, no murmur Respiratory: lungs clear, normal breath sounds, no respiratory distress, no accessory muscle use Genital/Rectal: other (swollen area at base of vaginal opening approximately 2.5 cm in diameter. No redness, positive area of induration, no area of fluctuation. US of area performed by Dr. Padilla, he states it appears like a sebaceous cyst, reports no pocket of drainable fluid) Rectal: normal exam (Performed by Dr. Padilla, he states the area does not feel like a rectocele) Pelvic: discharge Extremities: normal range of motion, normal inspection Neurologic/Psychiatric: alert, normal mood/affect Skin: normal color, warm/dry Progress/Results/Core Measures Suspected Sepsis SIRS Temperature: Pulse: 89 Respiratory Rate: Blood Pressure 136 /71 Mean: 92 Results/Orders Lab Results Laboratory Tests Test 07/27/22 20:17 Range/Units Micro Results Microbiology 07/27/22 Wet Prep - Final, Complete My Orders Orders - BRISEIDA CRKassi Arroyo APRN Wet Prep (07/27/22 19:56) Neisseria Gonorrhea Swab (07/27/22 19:56) Chlamydia Trachomatis Swab (07/27/22 19:56) Hydrocodone/Apap 5/325 Tablet (Lortab 5 (07/27/22 20:00) Medications Given in ED Vital Signs/I&O Capillary Refill : Blood Pressure Mean: 92 Progress Note : Progress Note Patient seen and evaluated, resting comfortably in bed, no acute distress. I do not believe this is a bartholin cyst due to location, skin appears normal color, no area of fluctuation. Dr. Padilla performed an US of area and he believes it is a sebaceous cyst with no drainable fluid. Dr. Padilla also performed a rectal exam that did not reveal this to be a rectocele or perirectal abscess. Dr. Coffey, OBGYN, called for consultation. Dr. Coffey was able to determine that this is a vaginal inclusion cyst. He recommends treatment of surgical removal by an OBGYN at a later date. He recommends that she take Tylenol and Ibuprofen together for pain. Patient is already scheduled for surgery at [facility] in [place] for the removal of her benign adrenal tumor next month, we discussed with her that she should try to schedule the surgeries at the same time by seeing an OBGYN at [facility]. I also ordered a wet prep and GC and chlamydia testing due to moderate amount of vaginal discharge. Wet prep positive for few clue cells. Will treat for bacterial vaginosis. Discharge instructions and return precautions provided. Departure Impression Primary Impression: Vaginal inclusion cyst Additional Impression: Bacterial vaginosis Disposition: HOME, SELF-CARE Condition: Stable Departure-Patient Inst. Decision time for Depature: 21:01 Referrals: [facility] (PCP/Family) Primary Care Physician Patient Instructions: Bacterial Vaginosis Add. Discharge Instructions: Complete full course of antibiotic for bacterial vaginosis. Do not drink alcohol while taking. What you have is called a vaginal inclusion cyst. Take Tylenol and ibuprofen for pain. You may use warm compresses or ice packs for pain as well. Do not use ice packs for more than 20 minutes at a time, make sure you have a barrier between the ice pack and your skin. Call Dr. Farias or gynecology at [facility] for follow-up and removal of cyst. Return for uncontrolled pain, fever, or any other new, concerning, or worsening symptoms. All discharge instructions reviewed with patient and/or family. Voiced understanding. Scripts Metronidazole (Metronidazole) 500 Mg Tablet 500 MG PO BID for 7 Days, #14 TAB 0 Refills Prov: CLAUDETTE CR APRN 07/27/22 Work/School Note: Work Release Form Date Seen in the Emergency Department: Jul 27, 2022 Return to Work: Jul 27, 2022 Restrictions: No Restrictions Other Restrictions Listed Below: Patient received hydrocodone during ED visit. CLAUDETTE CR APRN Jul 27, 2022 21:04
[2022-07-27 21:12] VITALS: BP 124/73
== END 2022-07-27 21:12 | disposition home or self-care (01) ==
LOC: EDUNIT# 19:18 → ER 19:22
DX: N76.0 Acute vaginitis (principal); F17.200 Nicotine dependence, unspecified, uncomplicated
CPT/HCPCS: 36415; 87210; 87491; 87591; 99284